=== PATIENT | female | born 1935 | race Caucasian/White ===

== ENCOUNTER 2017-05-20 07:57 | Inpatient (IN) | payer MEDICARE ==
[~2017-05-20 07:57] MED LIST: ISOVUE-370 76%-LOCM 1 ML ONE
[2017-05-20] MEDS ORDERED: Pantoprazole 40 MG VIAL ONE (08:35)
[2017-05-20] MEDS ORDERED: Sterile Water 10 ML ONE (08:36)
[2017-05-20 08:49] LABS: #Eosinphils 0.2 thou/uL (0.0-0.7); #Lymphocytes 0.7 thou/uL (1.20-3.40); #Monocytes 1.4 thou/uL (0.11-0.59); #Neutrophils 7.7 thou/uL (1.40-6.50); %Basophils 0.1 % (0.0-1.0); %Eosinophils 2.4 % (0.0-10.0); %Lymphocytes 7.2 % (21.0-51.0); %Monocytes 14.1 % (0.0-10.0); Hematocrit 29.3 % (36.0-47.0); Mean Platelet Volume 7.9 fL (7.4-10.4); Red Blood Cell (RBC) Count 3.28 mill/uL (4.20-5.40)
[2017-05-20 08:57] LABS: PTT 28.7 SEC (22.9-36.1); Prothrombin Time 14.1 SEC (12.0-14.7)
[2017-05-20 08:57] LABS: Bilirubin Small (Negative); Blood, Urine Negative (Negative); Glucose, Urine (Dipstick) Negative (Negative); Ketone, Urine Negative (Negative); Nitrite Negative (Negative); Protein, Urine (Dipstick) 30 mg/dL (Neg-Trace); Urobilinogen 0.2 mg/dL (0.2-1.0)
[2017-05-20 09:00] LABS: Bacteria/HPF 4+ HPF (None Seen); Hyaline Casts/LPF 7-10 HYALINE CAST LPF (0-3 Hyaline); RBC/HPF 0-3 HPF (0-3); Squamous Epithelial 0-3 HPF (0-3)
[2017-05-20 09:05] LABS: ALT (SGPT) 122 U/L (8-55); AST (SGOT) 91 U/L (5-34); Alkaline Phosphatase 181 U/L (40-150); Anion Gap 13 mmol/L (10-20); BUN (Urea Nitrogen) 32 mg/dL (9.8-20.1); Bilirubin, Total 0.8 mg/dL (0.2-1.2); CK (CPK) 52 U/L (29-168); Calc. Creatinine Clearance 0 mL/min (70-130); Calcium 8.9 mg/dL (7.8-10.44); Carbon Dioxide 29 mmol/L (23-31); Chloride 94 mmol/L (98-107); Estimated GFR-MDRD 30; Globulin 3.5 g/dL (2.4-3.5); Lipase 12 U/L (8-78); Protein, Total 6.5 g/dL (6.0-8.3)
[2017-05-20 09:23] LABS: Oval Fat Bodies/HPF None Seen HPF (None Seen); Renal Epithelial None Seen HPF (0-3); Transitional Epithelial NONE SEEN HPF (0-3); Trichomonas/HPF None Seen HPF (None Seen)
[2017-05-20 10:09] LABS: Lactic Acid - Sepsis 0.9 mmol/L (0.5-2.2)
--- NOTE | 2017-05-20 10:48 | RAD ---
PORTABLE AP CHEST X-RAY: 05/20/2017 HISTORY: Weakness. Blood in stool. COMPARISON: 05/03/2017 FINDINGS: The cardiac silhouette remains enlarged. The aortic valve graft is again seen. Calcifications over ly the expected location of the aortic valve. There are increased interstitial and parenchymal opac ities in the right perihilar location. While some of this could be related to volume loss due to sh allow depth of inspiration, findings are worrisome for a developing infectious process. There is li near scarring versus atelectasis in the left mid lung zone. Vascular calcifications are seen throug hout the thoracic aorta. There is osteopenia. IMPRESSION: 1. Interval development of increased patchy and interstitial opacities in the right perihilar regio n. While some of this could be related to the shallow depth of inspiration, findings are worrisome for pneumonia. Followup to resolution is recommended. 2. Cardiomegaly without overt congestive heart failure. POS: [facility]
--- NOTE | 2017-05-20 11:04 | CT ---
CONTRAST ENHANCED CT IMAGES OF THE ABDOMEN AND PELVIS: HISTORY: An 82-year-old with generalized weakness and blood in stools. TECHNIQUE: Axial images are obtained from the dome of the diaphragm through the pubic symphysis, after the admi nistration of IV contrast. A small right-sided pleural effusion is seen. Areas of atelectasis are seen in the right and left l clint bases. There are areas of calcification over the left mitral annulus. There is a prosthesis in the root of the aorta. The liver and spleen are unremarkable. Multiple gallstones are seen. The common bile duct has a di ameter of approximately 8 mm, without evidence of intrahepatic biliary dilatation. The adrenal glan ds are unremarkable. Multiple bilateral cortical renal cysts are seen. No dilated loops of small bowel seen. The colon is extremely tortuous with a large amount of stool in the cecum and ascending colon with d ilatation of the proximal mid colon. There is an area of sclerosis in the right sacral ala, concerning for a right sacral insufficiency f racture. IMPRESSION: 1. Large amount of stool in the proximal colon. 2. No definite evidence of bowel obstruction seen. 3. Multiple lumbar compression fractures, indeterminate age. 4. Right sacral ala fracture, as well as old healing fractures in the right superior and inferior p ubic rami. 5. Cholelithiasis. POS: [facility]
[2017-05-20 12:44] LABS: Troponin I 0.081 ng/mL (< 0.028)
[2017-05-20] MEDS ORDERED: cefTRIAXone\\ROCEPHIN 1 GM VIAL ONE (13:44)
[2017-05-20] MEDS ORDERED: Ondansetron ODT 4 MG TAB PO PRN (15:45)
[2017-05-20] MEDS ORDERED: Ondansetron HCl/PF 4 MG/2 ML Vial IVP PRN (15:45)
[2017-05-20] MEDS ORDERED: Acetaminophen 650 MG Suppository PR PRN (15:45)
[2017-05-20] MEDS ORDERED: Bisacodyl 5 MG TAB PO PRN (15:57)
[2017-05-20] MEDS ORDERED: Bisacodyl 10 MG SUPP PR PRN (15:57)
[2017-05-20 16:08] LABS: Troponin I 0.082 ng/mL (< 0.028)
[2017-05-20] MEDS ORDERED: Magnesium Citrate 300 ML BOT PO SCH (16:30)
[2017-05-20] MEDS ORDERED: Furosemide 40 MG/4 ML VIAL SLOW IVP SCH (16:30)
[2017-05-20] MEDS: Acetaminophen 325 MG TAB PO PRN ×2 (16:33→21:45)
[2017-05-20 18:41] LABS: Troponin I 0.083 ng/mL (< 0.028)
[2017-05-20] MEDS: Atorvastatin Calcium 40 MG TAB PO SCH (21:44)
[2017-05-20] MEDS: Docusate 100 MG CAP PO SCH (21:44)
[2017-05-20 23:46] LABS: Troponin I 0.084 ng/mL (< 0.028)
[2017-05-21 06:02] LABS: ALT (SGPT) 129 U/L (8-55); AST (SGOT) 116 U/L (5-34); Alkaline Phosphatase 167 U/L (40-150); Anion Gap 14 mmol/L (10-20); BUN (Urea Nitrogen) 37 mg/dL (9.8-20.1); Bilirubin, Total 0.5 mg/dL (0.2-1.2); Calc. Creatinine Clearance 27 mL/min (70-130); Calcium 8.8 mg/dL (7.8-10.44); Carbon Dioxide 28 mmol/L (23-31); Chloride 94 mmol/L (98-107); Estimated GFR-MDRD 27; Globulin 3.2 g/dL (2.4-3.5)
[2017-05-21] MEDS: Levothyroxine Sodium 75 MCG TAB PO SCH (06:03)
[2017-05-21] MEDS: Acetaminophen 325 MG TAB PO PRN ×2 (06:09→19:16)
[2017-05-21 06:33] LABS: Acanthocytes SLIGHT = 1-5 cells (100X) (None Seen); Anisocytosis SLIGHT = 6-15 cells (100X) (0-5/hpf); Burr Cells SLIGHT = 2-5 cells (100X) (0-1/hpf); Hematocrit 27.1 % (36.0-47.0); Mean Platelet Volume 8.1 fL (7.4-10.4); Myelocyte 1 % (0-0); Neutrophil 79 % (42-75); Red Blood Cell (RBC) Count 3.03 mill/uL (4.20-5.40); Schistocytes SLIGHT = 2-5 cells (100X) (0-1/hpf); White Blood Cell (WBC) Count 8.8 thou/uL (4.8-10.8)
--- NOTE | 2017-05-21 07:02 | ADD-HP ---
ADDENDUM HISTORY OF PRESENT ILLNESS: Please see the history and physical from the resident that I concur. T he patient was seen and evaluated and examined with the residents. Basically, this is an extremely complicated 82-year-old female, who was just admitted in March for a fall with a pelvic fracture an d past medical history including CHF, chronic kidney disease, chronic anemia, GERD, coronary artery disease including PTCA in the past, hypothyroidism, atrial fibrillation, aortic stenosis including v alve replacement and history of hypertension, who comes in just not quite herself recently, more corey sea, more abdominal distention, pretty significant constipation, although no actual vomiting and is being admitted for observation and to get her bowels moving. It sounds like she was on tramadol unt il the last fracture and that is why he remained more constipated and hemoglobin down to 9.1, it disla s not too far from baseline; creatinine is up to 1.6, but she often bumps at that level before; werner line phosphatase is little bit high and AST slightly elevated, but it looks like a little bit of hea rt failure, troponin is slightly high as her BNP as well. Sodium slightly low at 132, so the rest o f the past medical history, past surgical history, medications, review of systems and social history per the resident's history and physical. PHYSICAL EXAMINATION: GENERAL: Alert and oriented x2, pleasant, no respiratory distress, obvious distended abdomen. ENT: Significant for slightly pale conjunctivae. Oropharynx is clear and moist. CHEST: Some crackles at the bases. CARDIOVASCULAR: Irregularly irregular. ABDOMEN: Protuberant, but nontender. No rebound or guarding. EXTREMITIES: Showed trace to 1+ pitting edema numerous sores on very fragile looking skin on her lo wer extremities. LABORATORY DATA: Per the history and physical. ASSESSMENT AND PLAN: 1. Abdominal discomfort and bloating from severe constipation. Plan is to continue disimpaction, s tool softeners and laxatives. 2. History of recent pelvic fracture. We will continue pain management as needed. 3. Chronic renal insufficiency. We will watch this closely and will not overload her volume coppola. 4. Cardiac issues. We will watch her for volume overload. She does look a little bit overloaded c urrently.
--- NOTE | 2017-05-21 07:40 | PDOC.FM ---
- Subjective Subjective: Pt reports still having pain. Says she had a BM overnight. Feels a little better but distended. Pt seems to be having shallow breaths. Seems to take some effort to ask questions. Denies any other problems at this time. Denies any fever or chills - Objective Vital Signs & Weight: Vital Signs (12 hours) Temp Pulse Resp BP Pulse Ox 05/21/17 04:43 98.1 F 71 20 93/50 L 96 05/21/17 04:00 75 24 H 118/59 L 96 05/21/17 01:00 68 20 98 05/21/17 00:18 93 L 05/21/17 00:15 24 H 88 L 05/21/17 00:01 96 05/20/17 23:56 97.8 F 71 20 104/51 L 100 05/20/17 21:31 97.8 F 73 24 H 104/57 L 93 L 05/20/17 19:47 71 20 97 Weight Weight 69.218 kg I&O: 05/20/17 05/21/17 05/22/17 06:59 06:59 06:59 Intake Total 1097 Balance 1097 Result Diagrams: 05/21/17 04:54 05/21/17 04:54 Radiology Reviewed by me: Yes Radiology: CXR 05/20: interval development of increased patchy and interstitial opacities in the right perihilar region. Could be related to shallow depth breaths, concern for pneumonia. Cardiomegaly w/o overt congestive heart failure CT ab/pelvis 05/20: large amount stool in prox colon. No evidence obstruction. Cholelithiasis. Multiple lumbar compression fx, R sacral fx. Old healing fx in r superior and inferior pubic rami. Phys Exam - Physical Examination HEENT: moist MMs, oral pharynx no lesions Dry mucous membranes Neck: no nodes, no JVD, supple Lungs rales noted. Shallow breaths noted Cardiovascular: RRR, no rub systolic murmur noted Tight, Non-tender, Very much distended Edema improve +1 pitting edema Neurological: non-focal Psychiatric: normal affect, A&O x 3 Skin: no rash Dx/Plan (1) Constipation Code(s): K59.00 - CONSTIPATION, UNSPECIFIED Status: Acute Qualifiers: Constipation type: unspecified constipation type Qualified Code(s): K59.00 - Constipation, unspecified (2) Fecal impaction Code(s): K56.41 - FECAL IMPACTION Status: Acute (3) CHF exacerbation Code(s): I50.9 - HEART FAILURE, UNSPECIFIED Status: Acute (4) Diastolic CHF due to valvular disease Code(s): I38 - ENDOCARDITIS, VALVE UNSPECIFIED; I50.30 - UNSPECIFIED DIASTOLIC ( CONGESTIVE) HEART FAILURE Status: Chronic (5) Elevated transaminase level Code(s): R74.0 - NONSPEC ELEV OF LEVELS OF TRANSAMNS & LACTIC ACID DEHYDRGNSE Status: Acute (6) Paroxysmal a-fib Code(s): I48.0 - PAROXYSMAL ATRIAL FIBRILLATION Status: Acute (7) Ktrhd-im-fnsmdwl kidney injury Code(s): N17.9 - ACUTE KIDNEY FAILURE, UNSPECIFIED; N18.9 - CHRONIC KIDNEY DISEASE, UNSPECIFIED Status: Acute (8) Anemia Code(s): D64.9 - ANEMIA, UNSPECIFIED Status: Chronic Qualifiers: Anemia type: iron deficiency (9) Sacral fracture Code(s): S32.10XA - UNSP FRACTURE OF SACRUM, INIT ENCNTR FOR CLOSED FRACTURE Status: Acute (10) Compression fracture Code(s): UHO1483 - Status: Acute (11) Physical deconditioning Code(s): R53.81 - OTHER MALAISE Status: Acute - Plan Plan: Severe Constipation due to fecal impaction -Mag citrate, colace, dulcolax. Will make sure meds are scheduled -Continue soap enemas -May consider KUB to assess amount of stool still remains CHF excacerbation w/ hx valve replacement -Continue IV lasix -Repeat CXR pending today Elevated Transaminases -RUQ U/S pending -CT abdo/pelvis showed cholelithiasis -Trended upward today. -Continue daily monitory with CMP -Possibly due to congestion. May consider hepatitis panel pA. Fib -continue home meds. -On tele monitoring ORLY on CKD3 -Cr trending up. Holding fluids now due to problems above -Will continue to monitor daily CMP Chronic Microcytic Anemia -Hgb around pt baseline. Will continue to trend -FOBT negative -iron studies done in the past and low. -Was on iron but is being held due to constipation. HTN -BP low. Will continue to monitor at this time Rib pain/Sacral fx -Recent incident this monika where she had a fall and injured her ribs and sacral fx noted on CT -Tylenol for pain -Have to avoid narcotics due to constipation and toradol due to Cr Compression Fx -Seen on CT -May want to consider tx for osteoporosis out patient. DVT ppx -SCD's -No lovenox as risk of falls.
--- NOTE | 2017-05-21 07:51 | HP-2 ---
DATE OF ADMISSION: 05/20/2017 CODE STATUS: FULL. PRIMARY CARE PHYSICIAN: [facility]. ATTENDING: Dr. Deric Childers M.D. RESIDENT: Binh Moss, PGY-1 HISTORIAN: Mainly from the son. CHIEF COMPLAINT: Severe constipation and weakness. HISTORY OF PRESENT ILLNESS: Patient did not answer many questions. HPI was obtained from the son cali n the room. This is an 82-year-old female who comes in with a chief complaint of weakness and const ipation, this all kind of started on Monday when she had a fall with her home health. She had a gai t belt on, and when she fell, they pulled on the gait belt and kind of injured and bruised limbs at this time. At the week reported her getting weaker, not been able to get around as much or moving roselyn beverly said just the other night, he checked her oxygen. She wears oxygen at home all the time. Checked the oxygen and it was 84%. She usually wears 2 liters oxygen. He bumped up to 3 L and rechecked t he oxygen at that time was 90%. He also reported having a sore on her sacrum and noticing some brig ht red blood in the diaper, which likely was from sore on the sacrum. She does state that lately jessie beverly has been on a gluten-free diet. She has had some stomach issues and abdominal pain. He also stat es that he recently took her to the clinic [facility] on Monday. At that time, mainly for her rib pain was only her main complaint. At that time, they doubled her dose of tramadol. In the ER, they checked her hemoglobin. He said that blood level was higher than it has been in the p ast. She has recently been through a lot with multiple hospitalizations and then recently in rehab in the last few months. PAST MEDICAL HISTORY: CHF, paroxysmal atrial fibrillation, carotid , hyperlipidemia, hypertens ion, right coronary artery stent, has a TAVR, and has had an aortic valve replacement. ALLERGIES: No known drug allergies. MEDICATIONS: 1. She takes levothyroxine 75 mcg but only takes half of that, so 37.5 mcg.. 2. Lipitor 80 mg. 3. Aspirin 81 mg. 4. Amiodarone 200 mg. 5. Plavix 75 mg. 6. vitamin. 7. Tramadol 50 mg 2 times p.r.n. q.6 h. 8. Prednisone 5 mg. 9. Ferrous sulfate. 10. Furosemide 20 mg. 11. Milk of Magnesia. 12. Folic acid. 13. Protonix 40 mg. 14. Zofran 4 mg. FAMILY HISTORY: Insignificant at this time. SOCIAL HISTORY: Tobacco use is none. Alcohol use is none. Drugs are none. REVIEW OF SYSTEMS: Respiratory: She has respiratory short of breath. Cardiovascular: She does sanders ve edema in her legs bilaterally. Gastrointestinal: She does report nausea, constipation, abdomina l pain, bleeding, but likely from the sacral ulcer. Neurologic: She reports weakness. All other review of systems not noted in the HPI and review of systems are negative at this time. PHYSICAL EXAMINATION: VITAL SIGNS: Blood pressure is 107/66, pulse is 77, respirations of 14, and temperature was 97.6, p ulse ox is 96% on 3 liters. GENERAL: Alert and oriented x3. She is somewhat thin, does not seem appropriately nourished, not a ppropriately interactive, as son answer questions. She does seem pretty ill and does not seem to be in much strength to answer questions. EYES: Conjunctivae are within normal limits. ENT: Nasal mucosa within normal limits. Oropharynx within normal limits. NECK: Supple, no lymphadenopathy, no thyromegaly, no bruits. CARDIOVASCULAR: Regular rate and rhythm, possible slight murmur heard. No gallops. Radial and ped al pulses palpated bilaterally. RESPIRATORY: She has decreased breathing effort. Lungs are kind of crackly, rales noted. No retra ctions noted. ABDOMEN: Firm, mildly tender to palpation. There is bowel sounds heard in all 4 quadrants, but her belly is very distended and very bloated at this time. No masses noted. EXTREMITIES: She does have pitting edema in both extremities +2 pitting edema in extremities bilate rally. MUSCULOSKELETAL: Structure within normal, tone within normal. She does have decreased muscle stren gth. Does not seem to have full range of motion. NEUROLOGIC: No focal deficits. Sensation is within normal limits. PSYCHIATRIC: She is a very quiet, elderly female. Son answers most of the questions. LABORATORY DATA: White blood cell count of 10.0, hemoglobin of 9.1, hematocrit of 29.3, platelets o f 243,000, 76.2% neutrophils. The sodium is 132, the potassium is 4.2, chloride 94, the CO2 is 29, the BUN is 32, potassium 1.65. GFR is 30, calcium is 8.9, total protein 6.5. The albumin 3.0, the AST is 91, the ALT is 122, the alkaline phosphatase is 181, total bilirubin 0.8. PT is 14.1, aPTT 2 8, INR is 1.1. CK is 52. The CK-MB is 2.4. The troponins were 0.07 and the next troponin check wa s 0.081. The BNP was 697. 1. On chest x-ray showed interval development of increased patchy and interstitial opacities in the right perihilar region, worrisome for pneumonia and also noted that it could also be due to just sh allow breathing effort. 2. On chest x-ray, it showed cardiomegaly without overt CHF. IMAGING: A CT abdomen and pelvis: There is a large amount of stool in the proximal colon. No definitive raine dence of bowel obstruction seen. There are multiple lumbar compression fractures. There is a right sacral fracture as well as healing fractures in the right superior and inferior pubic rami. there also was cholelithiasis noted. ASSESSMENT AND PLAN: This is an 82-year-old female with: 1. Severe constipation with fecal impaction. We will give her mag citrate, soap enema, and Colace and Dulcolax for now. She was already disimpacted by the nurse practitioner in the ER, may need ton e more disimpaction tomorrow. 2. Mild congestive heart failure exacerbation. We will continue her home meds. We will give one do se of Lasix. We will repeat chest x-ray tomorrow. We will put her on fluid restrictions. 3. Elevated transaminases. There is cholelithiasis on the CT. We will trend with CMP in the a.m. We will get a right upper quadrant ultrasound. 4. There were uptrending troponins. Troponins are elevated. They are kind of around her baseline, but we will continue to trend. 5. Acute kidney injury on chronic kidney disease. Creatinine is a little elevated from previous ho spitalizations or elevated from baseline. We will continue to monitor with CMP. We will not be abl e to give her fluids at this time as she was fluid restrictions per problems above. 6. Chronic anemia. Her hemoglobin is 9.1 better than usual. We will hold her iron due to constipa tion. Continue to monitor with daily CBCs. 7. Rib pain/sacral fracture. We will give her only Tylenol at this time. We will avoid opiates, T oradol. Toradol due to creatinine and opiates due to constipation. 8. There is a small sacral ulcer. We will kind of watch it. Allow nursing to manage. May possibl y need a Wound Care consult. 9. Deep venous thrombosis prophylaxis. We will put devices. 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
[2017-05-21 08:33] LABS: Troponin I 0.089 ng/mL (< 0.028)
[2017-05-21] MEDS ORDERED: Furosemide 40 MG/4 ML VIAL SLOW IVP SCH (09:00)
[2017-05-21] MEDS: Lactinex Tablet PO SCH (09:51)
[2017-05-21] MEDS: Docusate 100 MG CAP PO SCH ×2 (09:52→22:01)
[2017-05-21] MEDS: Folic Acid 1 MG TAB PO SCH (09:52)
[2017-05-21] MEDS: predniSONE 5 MG TAB PO SCH (09:52)
[2017-05-21] MEDS: Clopidogrel Bisulfate 75 MG TAB PO SCH (09:52)
[2017-05-21] MEDS: Furosemide 20 MG/2 ML VIAL SLOW IVP SCH (09:53)
[2017-05-21] MEDS ORDERED: Bisacodyl 10 MG SUPP PR SCH (10:00)
--- NOTE | 2017-05-21 11:46 | ULT ---
RIGHT UPPER QUADRANT ULTRASOUND: DATE: 05/21/17. HISTORY: Abdominal pain, cholelithiasis. FINDINGS: Multiple longitudinal and transverse images of the right upper quadrant of the abdomen were obtained using a multihertz curvilinear transducer. Real-time, color flow, and spectral waveform Doppler an alysis was used to evaluate the right upper quadrant. The patient has a right-sided pleural effusion. The liver demonstrates no definite evidence of hepa tic parenchymal masses. No evidence of intrahepatic biliary dilatation is seen. Multiple echogenic foci are seen within the gallbladder compatible with extensive cholelithiasis. T he gallbladder wall may have some thickening. It is difficult to determinate definitively due to th e extensive cholelithiasis. Gallbladder wall may measure up to 5 mm. Cortical cyst seen in the right kidney. Common bile duct is dilated measuring 9.5 mm. Pancreas is incompletely visualized due to overlying bowel gas. IMPRESSION: 1. Cholelithiasis. 2. Gallbladder wall may be thickened. 3. Common bile duct dilatation. POS: [facility]
--- NOTE | 2017-05-21 12:45 | RAD ---
TWO VIEWS CHEST: HISTORY: Pneumonia. FINDINGS: PA and lateral views of the chest were obtained on 05/21/17. Comparison is made to a previous exam f rom 05/20/17. Two views chest demonstrate an endocardiac stent. There is definitely cardiomegaly. Calcification of the aorta is seen. Ectasia of the aorta is noted. Pulmonary vascular congestion is seen. There appears to be some increased pulmonary vascular congestion with some increasing opacity in the left upper lobe not seen on previous day's exam. There is also some increasing airspace opacity in the right upper lobe. IMPRESSION: Increasing airspace opacities. POS: [facility]
[2017-05-21 12:48] LABS: Troponin I 0.086 ng/mL (< 0.028)
--- NOTE | 2017-05-21 17:58 | ADD-PRG ---
ADDENDUM DATE OF SERVICE: 05/21/2017 Please see the progress note by Dr. Moss for which I concur. Basically, an 82-year-old who came i n for various complaints including being volume overloaded; rib pain after a rib injury from being p ulled up after a fall using a physical therapy waist belt, although no actual rib fractures; liver f unction tests were slightly elevated, likely may be from little bit of volume overload. Has chronic anemia that is really unchanged. Kidney function is a little bit decreased, although things seemed to be chronic and biggest issue on her is trying to get her bowel movements because that is definit anil affecting her. PHYSICAL EXAMINATION: HEENT: Today, fairly moist mucosa. LUNGS: Chest has some crackles at the bases. Hard to say if this is atelectasis or fluid, probably seems a little bit more like fluid. CARDIOVASCULAR: Regular rate and rhythm. ABDOMEN: Distended, but seems to be more gaseous and nontender. No rebound, no guarding, no right upper quadrant tenderness. EXTREMITIES: Show still 1+ edema. ASSESSMENT AND PLAN: The patient basically has a touch of volume overload and chronic renal disease as well as slightly elevated liver function tests and aches and pains which pain medication seemed to be causing more constipation which seems then make her more miserable and even affects her breath ing somewhat as I think she has a little bit of restrictive lung issue with her abdominal distention , so the plan is to try to get her out of bed, physical therapy, incentive spirometer, get her breat andreea better, continue very light diuresis as I do not want to stress out her kidneys too much and ul trasound is pending, but I do not think there is any reason to think that the cholelithiasis is that symptomatic, though we are trying to stabilize all this and I want to consider Movantik, Amitiza, o r similar medicines can help with chronic bowel movement issues. If we do Movantik, we are able to probably use more opiates to control her pain a little bit better as well.
[2017-05-21] MEDS ORDERED: Polyethylene Glycol 3350 17 GM Packet PO SCH ×2 (18:45→19:00)
[2017-05-21] MEDS ORDERED: Sodium Chloride 0.9% 10 ML ONE (20:27)
[2017-05-21] MEDS ORDERED: Fleet Enema 133 ML BOT FS SCH (20:45)
[2017-05-21] MEDS ORDERED: Fleet Enema 133 ML BOT PR SCH (20:45)
[2017-05-21] MEDS: Atorvastatin Calcium 40 MG TAB PO SCH (22:01)
[2017-05-21] MEDS ORDERED: traMADol HCl 50 MG TAB PO SCH (22:30)
[2017-05-22] MEDS: Bisacodyl 10 MG SUPP PR SCH ×3 (04:36→18:26)
[2017-05-22] MEDS: traMADol HCl 50 MG TAB PO PRN ×3 (04:52→20:38)
[2017-05-22] MEDS: Levothyroxine Sodium 75 MCG TAB PO SCH (04:53)
[2017-05-22 05:48] LABS: ALT (SGPT) 119 U/L (8-55); AST (SGOT) 100 U/L (5-34); Alkaline Phosphatase 166 U/L (40-150); Anion Gap 13 mmol/L (10-20); BUN (Urea Nitrogen) 45 mg/dL (9.8-20.1); Bilirubin, Total 0.5 mg/dL (0.2-1.2); Calc. Creatinine Clearance 28 mL/min (70-130); Calcium 8.6 mg/dL (7.8-10.44); Carbon Dioxide 31 mmol/L (23-31); Chloride 93 mmol/L (98-107); Estimated GFR-MDRD 29; Globulin 3.3 g/dL (2.4-3.5)
[2017-05-22 05:50] LABS: Hematocrit 26.7 % (36.0-47.0); Mean Platelet Volume 8.2 fL (7.4-10.4); Neutrophil 85 % (42-75); White Blood Cell (WBC) Count 9.8 thou/uL (4.8-10.8)
[2017-05-22] MEDS ORDERED: GoLYTELY 4,000 ml Bottle PO SCH (06:00)
--- NOTE | 2017-05-22 06:50 | PDOC.FM ---
- Subjective Subjective: Patient states she is still having quite a bit of pain from the gait belt incident. She states that she hurts all the time unless she sits very still. She denies any n/v/d. She notes just a small BM after an enema, but is able to pass gas. She states that he abdomen isn't as big as it is now usually. It began to get bigger just a few days prior to coming to the hospital that coordinates with her constipation problems. Patient states she feels very weak that is not normal for her. - Objective Vital Signs & Weight: Vital Signs (12 hours) Temp Pulse Resp BP Pulse Ox 05/22/17 04:33 97.8 F 79 16 114/59 L 94 L 05/22/17 00:30 75 18 98 05/21/17 22:59 79 20 136/67 93 L 05/21/17 21:40 97.9 F 76 20 135/63 94 L Weight Weight 67.812 kg I&O: 05/20/17 05/21/17 05/22/17 06:59 06:59 06:59 Intake Total 1097 1290 Balance 1097 1290 Result Diagrams: 05/22/17 04:19 05/22/17 04:19 <Christian Ortiz - Last Filed: 05/22/17 11:16> - Objective Vital Signs & Weight: Vital Signs (12 hours) Temp Pulse Resp BP Pulse Ox 05/22/17 11:25 80 22 H 142/72 H 96 05/22/17 09:52 97.8 F 05/22/17 06:48 72 20 98 05/22/17 06:42 84 20 169/77 H 97 05/22/17 04:33 97.8 F 79 16 114/59 L 94 L 05/22/17 00:30 75 18 98 Weight Admit Weight 67.222 kg Weight 67.812 kg I&O: 05/21/17 05/22/17 05/23/17 06:59 06:59 06:59 Intake Total 1097 1290 Balance 1097 1290 Result Diagrams: 05/22/17 04:19 05/22/17 04:19 <Vitor Molina - Last Filed: 05/22/17 12:13> Phys Exam - Physical Examination HEENT: moist MMs Neck: no nodes Respiratory: wheezing present Cardiovascular: RRR Systolic murmur noted Gastrointestinal: soft, non-tender, positive bowel sounds distended Rectal exam: no hard stool in vault, flatulence and loose stool present. Pitting edema present Neurological: moves all 4 limbs Psychiatric: normal affect, A&O x 3 <Christian Ortiz - Last Filed: 05/22/17 11:16> Dx/Plan (1) Constipation Code(s): K59.00 - CONSTIPATION, UNSPECIFIED Status: Acute Qualifiers: Constipation type: unspecified constipation type Qualified Code(s): K59.00 - Constipation, unspecified Plan: -Mag citrate, colace, dulcolax. Will make sure meds are scheduled -Continue soap enemas -Patient did have 2 small BMs after enemas -May consider KUB to assess amount of stool still remains -Concentrate bowel regimen and wait to see results. (2) Fecal impaction Code(s): K56.41 - FECAL IMPACTION Status: Acute Plan: -Mag citrate, colace, dulcolax. Will make sure meds are scheduled -Continue soap enemas -Patient did have 2 small BMs after enemas -May consider KUB to assess amount of stool still remains -Continue current treatment (3) CHF exacerbation Code(s): I50.9 - HEART FAILURE, UNSPECIFIED Status: Acute Plan: -Pitting edema still present -CXR shows increasing airspace opacities as compared to the previous. Pulmonary vascular congestion is noted. -With poor inspiration and increasing opacities will monitor closely for signs of infection. No fevers or WBC at this time. -Continue IV lasix (4) Diastolic CHF due to valvular disease Code(s): I38 - ENDOCARDITIS, VALVE UNSPECIFIED; I50.30 - UNSPECIFIED DIASTOLIC ( CONGESTIVE) HEART FAILURE Status: Chronic Plan: -Previous valve replacement -Continue IV lasix (5) Elevated transaminase level Code(s): R74.0 - NONSPEC ELEV OF LEVELS OF TRANSAMNS & LACTIC ACID DEHYDRGNSE Status: Acute Plan: -RUQ US: Cholithiasis, gallbladder wall may be thickened, common bile duct dilation. -CT abdo/pelvis showed cholelithiasis -Continue daily monitory with CMP -Possibly due to congestion. (6) Paroxysmal a-fib Code(s): I48.0 - PAROXYSMAL ATRIAL FIBRILLATION Status: Acute Plan: -continue home meds. -On tele monitoring (7) Qczws-td-ilrfbzt kidney injury Code(s): N17.9 - ACUTE KIDNEY FAILURE, UNSPECIFIED; N18.9 - CHRONIC KIDNEY DISEASE, UNSPECIFIED Status: Acute Plan: -Cr trending up. Holding fluids now due to problems above -Will continue to monitor daily CMP (8) Anemia Code(s): D64.9 - ANEMIA, UNSPECIFIED Status: Chronic Qualifiers: Anemia type: iron deficiency Plan: -Hgb around pt baseline. Will continue to trend -FOBT negative -iron studies done in the past and low. -Was on iron but is being held due to constipation. (9) Compression fracture Code(s): IOH1199 - Status: Acute Plan: -Seen on CT -May want to consider tx for osteoporosis out patient. (10) Sacral fracture Code(s): S32.10XA - UNSP FRACTURE OF SACRUM, INIT ENCNTR FOR CLOSED FRACTURE Status: Acute Plan: -Recent incident this monday where she had a fall and injured her ribs and sacral fx noted on CT -Tylenol for pain -Have to avoid narcotics due to constipation and toradol due to Cr -Could be due to nerve pain, will consider Gabapentin. (11) Physical deconditioning Code(s): R53.81 - OTHER MALAISE Status: Acute Plan: Patient may need to be considered for placement to [facility]. <Christian Ortiz - Last Filed: 05/22/17 11:16> Attending Addendum - Attending Addendum I personally evaluated the patient and discussed the management with Dr. Ortiz. I agree with the History, Examination, Assessment and Plan documented above with any addition or exceptions noted below. Patient has a multitude of active issues at this time. She continues to have severe constipation that is resulting in abdominal pain and discomfort. She has + bowel sounds, and is passing flatus. Repeat rectal exam this morning showed liquid stool in the rectal vault. We have discontinued the Golytely solution that was started last night due to concern for volume overload in an already volume overloaded patient. Will stick to small volumes of PEG and soapsud enemas for now and anticipate that she will begin having more normal bowel movements hopefully later today. Unsure etiology as to the cause of her initial constipation, but could be related to opioid therapy, diuresis, or some new issue such as Oglevie's syndome, though at this time I feel is more unlikely. If no improvement today, will have GI evaluate patient tomorrow. We are changing her diet to a liquid only diet so as not to worsen her distention/ stool burden. Patient also continues to be CHF with exacerbation. She is receiving IV lasix with mild improvement, but must be cautious due to coexisting renal disease. Her renal function is overall stable today and I would continue to diurese as she has evidence of overload on exam. She is currently on supplemental O2 with decent sats, and patient reports she is on 2-3L by NC at home, so she is likely near her respiratory baseline. I do not believe that her current pain complaint is related to cholelithiasis even though there is evidence of that on U/S. Her pain seems more related to MSK pain as well as from her abdominal distention. Continue to monitor LFTs for evidence of choledocholithiasis as she is at risk for gallbladder dysfunction due to her current illnesses. <Vitor Molina - Last Filed: 05/22/17 12:13>
[2017-05-22] MEDS ORDERED: Polyethylene Glycol 3350 17 GM Packet PO SCH ×2 (09:00→11:30)
[2017-05-22] MEDS: Furosemide 20 MG/2 ML VIAL SLOW IVP SCH (09:51)
[2017-05-22] MEDS: Docusate 100 MG CAP PO SCH ×2 (09:52→20:38)
[2017-05-22] MEDS: Lactinex Tablet PO SCH (09:52)
[2017-05-22] MEDS: predniSONE 5 MG TAB PO SCH (09:52)
[2017-05-22] MEDS: Folic Acid 1 MG TAB PO SCH (09:52)
[2017-05-22] MEDS: Clopidogrel Bisulfate 75 MG TAB PO SCH (09:52)
--- NOTE | 2017-05-22 13:53 | PQF ---
CLINICAL DOCUMENTATION IMPROVEMENT CLARIFICATION FORM: ICD-10 Updated PLEASE DO AN ADDENDUM TO THE PROGRESS NOTE WITH ANY DOCUMENTATION UPDATES OR ADDITIONS AND CARRY THROUGH TO DC SUMMARY. THANK YOU. DATE: 05/22 ATTN: DR. AYE MARR/ DR. MARILIN EMMANUEL Please provide a response below if a more specific term indicating a diagnosis and/or acuity level for this condition can be identified. Please exercise your independent, professional judgment in responding to the clarification form. Clinical indicators are provided on the bottom of this form for your review. [ ] Acute Respiratory Failure: [ ] with Hypoxia [ ] with Hypercapnia [ X ] Acute On Chronic Respiratory Failure: [ X ] with Hypoxia [ ] with Hypercapnia [ ] Acute Respiratory Failure caused by: (etiology) [ ] Chronic Respiratory Failure only [ ] Does not apply to this patient [ ] Unable to determine [ ] Other diagnosis: The following CLINICAL INDICATORS - SIGNS / SYMPTOMS are present in the medical record: ER PRESENTATION 05/20: 02 SAT ON 2L: 87%, PLACED ON 3L: 91-97% RR: 22 RESPIRATORY EFFORT LABORED NORMALLY WEARS 2L 02 AT HOME, NOW ONLY SATTING >92% ON 3L ATTENDING PHYSICIAN H&P DOCUMENTATION 05/20: HISTORY OF PRESENT ILLNESS: SHE WEARS OXYGEN AT HOME ALL THE TIME. HER SON CHECKED OXYGEN AND IT WAS 84%. HE BUMPED UP TO 3L AND RECHECK THE OXYGEN AT THAT TIME WAS 90% ATTENDING PROGRESS NOTE 05/22: SHE IS CURRENTLY ON SUPPLEMENTAL 02 WITH DECENT SATS, AND PT REPORTS SHE IS ON 2-3L NC AT HOME, SO SHE IS LIKELY NEAR HER RESPIRATORY BASELINE RISKS: HOME 02 USE DIASTOLIC CHF EXACERBATION TREATMENTS: SUPPLEMENTAL 0XYGEN TO KEEP SATS >90% DIURESIS (IV LASIX 05/20 - PRESENT) RESPIRATORY TREATMENTS (05/20 - PRESENT) (This form is maintained as a part of the permanent medical record) 2014 [employer]. All Rights Reserved Ya Veronica RN, BSAdelaida [email or web address] Office: [phone] [place]
[2017-05-22] MEDS: Atorvastatin Calcium 40 MG TAB PO SCH (20:37)
[2017-05-22] MEDS: Calcium Carbonate 500 MG ChewTAB PO PRN (20:38)
[2017-05-22] MEDS: Heparin 5,000 UNITS/ML VIAL SC SCH (20:39)
[2017-05-23] MEDS ORDERED: Furosemide 40 MG/4 ML VIAL SLOW IVP SCH ×2 (00:15→22:15)
[2017-05-23] MEDS ORDERED: Acetaminophen 325 MG TAB PO PRN (00:17)
[2017-05-23] MEDS ORDERED: traMADol HCl 50 MG TAB PO PRN (00:17)
[2017-05-23] MEDS ORDERED: Senokot 8.6 MG TAB PO SCH (00:30)
[2017-05-23] MEDS ORDERED: Furosemide 40 MG TAB ONE (00:41)
--- NOTE | 2017-05-23 00:45 | PDOC.EVN ---
Event Note - Event Note Event Note: called to bedside to evaluate pt as she was feeling increasingly SOB. satting 91 % on 3L whereas previously, pt was 96% on 3L. pt endorsed difficulty breathing and abdominal distention making it hard to breathe. has had multiple enemas and increasing bowel regimen to relieve fecal impaction to no avail as of yet. Lung exam revealed diffuse crackles in both lung curtis. Actively getting neb in room which pt states is helping a little. Abd mildly tender to palpation, diffusely distended & tympanic. Aside from hypoxia as noted above, VSS. Stat CXR ordered and 40mg IV lasix given now for likely fluid overload. Additionally, increased bowel regimen to have po stool softener, stimulant laxative added, and will try mineral oil enema as soap suds enemas have not yet been working. <Viktoria Beverly - Last Filed: 05/23/17 00:39> - Event Note Event Note: Patient reevaluated by myself at 0530 after page from nurse. Patient remains hypoxic at 87% on 4L per nc. Code green called. ABG shows pH 7.4, CO2 58, O2 51. Lung exam shows minimal movement of air with rhonchi throughout. Abdomen remains mildly tender and distended, but no guarding or rebound. CXR done earlier is unchanged, showing diffuse parenchymal change and no evidence of free air in the abdomen. No tachycardia. Given lack of response to treatment, will start Bipap and transfer to IMCU. Most likely atelectasis from obstipation is leading to hypoxia. Will monitor closely and consult GI and pulmonology in the for assistance, as she has not responded to standard measures. Critical Care time 40 minutes. <Abril Potter - Last Filed: 05/23/17 05:51>
[2017-05-23] MEDS ORDERED: Acetaminophen 500 MG TAB PO PRN (00:53)
[2017-05-23] MEDS: Calcium Carbonate 500 MG ChewTAB PO PRN (04:04)
[2017-05-23] MEDS: Mineral Oil ENEMA PR SCH ×4 (04:05→20:25)
[2017-05-23] MEDS: Bisacodyl 10 MG SUPP PR SCH ×3 (04:05→19:41)
[2017-05-23 05:37] LABS: Oxyhemoglobin 82.7 % (94.0-97.0); Sodium 135 mmol/L (135-148)
[2017-05-23 05:51] LABS: Vent NO
[2017-05-23 05:52] LABS: Mode NC
--- NOTE | 2017-05-23 07:40 | PDOC.FM ---
- Subjective Subjective: Patient had respiratory distress last night. She is now on the Bipap. She has still not had a bowel movement of any significant size. She is not complaining of any abdominal pain. She does feel short of breath and does have some pain in her chest when she coughs. - Objective Vital Signs & Weight: Vital Signs (12 hours) Temp Pulse Resp BP Pulse Ox 05/23/17 07:19 89 94 L 05/23/17 07:15 89 15 93 L 05/23/17 06:26 97.6 F 91 29 H 104/68 91 L 05/23/17 05:28 28 H 87 L 05/23/17 04:18 24 H 98 05/23/17 04:17 24 H 87 L 05/23/17 04:00 98.1 F 85 21 H 131/64 93 L 05/23/17 02:16 99 05/23/17 00:02 87 22 H 90 L 05/22/17 23:58 82 24 H 118/69 91 L 05/22/17 20:32 97.7 F 79 20 139/76 96 Weight Admit Weight 67.222 kg Weight 68.492 kg I&O: 05/22/17 05/23/17 05/24/17 06:59 06:59 06:59 Intake Total 1290 1976 Balance 1290 1976 Result Diagrams: 05/23/17 05:32 05/23/17 05:32 <Christian Ortiz - Last Filed: 05/23/17 11:22> - Objective Vital Signs & Weight: Vital Signs (12 hours) Temp Pulse Resp BP Pulse Ox 05/23/17 10:42 90 05/23/17 08:00 98.0 F 91 22 H 114/71 94 L 05/23/17 07:19 89 94 L 05/23/17 07:15 89 15 93 L 05/23/17 06:26 97.6 F 91 29 H 104/68 91 L 05/23/17 05:28 28 H 87 L 05/23/17 04:30 24 H 98 05/23/17 04:18 87 L 05/23/17 04:17 24 H 87 L 05/23/17 04:00 98.1 F 85 21 H 131/64 93 L 05/23/17 02:16 99 05/23/17 00:02 87 22 H 90 L 05/22/17 23:58 82 24 H 118/69 91 L Weight Admit Weight 67.222 kg Weight 68.492 kg I&O: 05/22/17 05/23/17 05/24/17 06:59 06:59 06:59 Intake Total 1290 1976 Balance 1290 1976 Result Diagrams: 05/23/17 05:32 05/23/17 05:32 <Vitor Molina - Last Filed: 05/23/17 11:28> Phys Exam - Physical Examination Neck: no nodes Respiratory: wheezing present Cardiovascular: RRR Systolic murmur present Gastrointestinal: soft, non-tender, positive bowel sounds Distended Musculoskeletal: edema present Neurological: non-focal Psychiatric: normal affect, A&O x 3 Skin: no rash <Christian Ortiz - Last Filed: 05/23/17 11:22> Dx/Plan (1) Constipation Code(s): K59.00 - CONSTIPATION, UNSPECIFIED Status: Acute Qualifiers: Constipation type: unspecified constipation type Qualified Code(s): K59.00 - Constipation, unspecified Plan: -Mag citrate, colace, dulcolax. Will make sure meds are scheduled -Continue soap enemas -Concentrate bowel regimen and wait to see results. -Will consult GI -Will get KUB (2) Fecal impaction Code(s): K56.41 - FECAL IMPACTION Status: Acute Plan: -Mag citrate, colace, dulcolax. Will make sure meds are scheduled -Continue soap enemas -GI consult (3) CHF exacerbation Code(s): I50.9 - HEART FAILURE, UNSPECIFIED Status: Acute Plan: -Pitting edema still present -CXR shows increasing airspace opacities as compared to the previous. Pulmonary vascular congestion is noted. -With poor inspiration and increasing opacities will monitor closely for signs of infection. No fevers or WBC at this time. -Continue IV lasix -On BIPAP now and will continue to monitor (4) Diastolic CHF due to valvular disease Code(s): I38 - ENDOCARDITIS, VALVE UNSPECIFIED; I50.30 - UNSPECIFIED DIASTOLIC ( CONGESTIVE) HEART FAILURE Status: Chronic Plan: -Previous valve replacement -Continue IV lasix -Will get a repeat ECHO (5) Elevated transaminase level Code(s): R74.0 - NONSPEC ELEV OF LEVELS OF TRANSAMNS & LACTIC ACID DEHYDRGNSE Status: Acute Plan: -RUQ US: Cholithiasis, gallbladder wall may be thickened, common bile duct dilation. -CT abdo/pelvis showed cholelithiasis -Continue daily monitory with CMP -Possibly due to congestion. (6) Paroxysmal a-fib Code(s): I48.0 - PAROXYSMAL ATRIAL FIBRILLATION Status: Acute Plan: -continue home meds. -On tele monitoring (7) Rrqhj-xb-omtzowt kidney injury Code(s): N17.9 - ACUTE KIDNEY FAILURE, UNSPECIFIED; N18.9 - CHRONIC KIDNEY DISEASE, UNSPECIFIED Status: Acute Plan: -Cr trending up. Holding fluids now due to problems above -Will continue to monitor daily CMP (8) Anemia Code(s): D64.9 - ANEMIA, UNSPECIFIED Status: Chronic Qualifiers: Anemia type: iron deficiency Plan: -Hgb around pt baseline. Will continue to trend -FOBT negative -iron studies done in the past and low. -Was on iron but is being held due to constipation. (9) Compression fracture Code(s): [id number] - Status: Acute Plan: -Seen on CT -May want to consider tx for osteoporosis out patient. (10) Sacral fracture Code(s): S32.10XA - UNSP FRACTURE OF SACRUM, INIT ENCNTR FOR CLOSED FRACTURE Status: Acute Plan: -Recent incident this monday where she had a fall and injured her ribs and sacral fx noted on CT -Tylenol for pain -Have to avoid narcotics due to constipation and toradol due to Cr -Not having significant pain, if worsens will consider Gabapentin. (11) Physical deconditioning Code(s): R53.81 - OTHER MALAISE Status: Acute Plan: Patient may need to be considered for placement to long term care social worker care facility. (12) Respiratory distress Code(s): R06.00 - DYSPNEA, UNSPECIFIED Status: Acute Plan: -Now requiring BIPAP therapy. -patient was not tolerating O2 4L via nasal cannula -Most likely due to rib pain and full abdomen. -Will continue to monitor - Plan Plan: Patient's prognosis is looking worse today because of the respiratory distress. Will get GI consult and make further decisions from there. Patient's care will be transferred to Dr. Williamson. <Christian Ortiz - Last Filed: 05/23/17 11:22> Attending Addendum - Attending Addendum I personally evaluated the patient and discussed the management with Dr. Ortiz. I agree with the History, Examination, Assessment and Plan documented above with any addition or exceptions noted below. Patient with worsening respiratory status overnight, possibly 2/2 increasing abdominal distention combined with volume overload. She would now be classified as acute exacerbation of chronic hypoxic respiratory failure. She is more comfortable on Bipap and her sats are improved. Continues to have significant abdominal distension and stool burden despite maximal medical therapy including multiple rounds of osmotic laxatives, stool softeners, suppositories, and enemas. NG tube likely will do nothing to compress patient due to the distal nature of her constipation/obstipation. Continues to have normoactive bowel sounds and no evidence of perforation. Consider rectal tube for some colonic decompression. Critical care and GI have been consulted. Continue to monitor volume status but the current most significant problem is her severe abdominal distension that is not responding to standard medical therapy. <Vitor Molina - Last Filed: 05/23/17 11:28>
[2017-05-23] MEDS: Heparin 5,000 UNITS/ML VIAL SC SCH ×2 (08:57→20:52)
[2017-05-23] MEDS: Furosemide 20 MG/2 ML VIAL SLOW IVP SCH (08:57)
[2017-05-23] MEDS ORDERED: Polyethylene Glycol 3350 17 GM Packet PO SCH (09:00)
[2017-05-23 09:08] LABS: ALT (SGPT) 136 U/L (8-55); AST (SGOT) 126 U/L (5-34); Acanthocytes SLIGHT = 1-5 cells (100X) (None Seen); Alkaline Phosphatase 191 U/L (40-150); Anion Gap 15 mmol/L (10-20); BUN (Urea Nitrogen) 44 mg/dL (9.8-20.1); Band 2 % (5-11); Bilirubin, Total 0.8 mg/dL (0.2-1.2); Burr Cells MODERATE= 6-15 cells (100X) (0-1/hpf); Calc. Creatinine Clearance 29 mL/min (70-130); Calcium 9.2 mg/dL (7.8-10.44); Carbon Dioxide 31 mmol/L (23-31); Chloride 93 mmol/L (98-107); Estimated GFR-MDRD 29; Globulin 3.6 g/dL (2.4-3.5); Hematocrit 29.1 % (36.0-47.0); Mean Platelet Volume 8.6 fL (7.4-10.4); Neutrophil 81 % (42-75); Polychromasia SLIGHT = 2-3 cells (100X) (0-2/hpf); Protein, Total 6.6 g/dL (6.0-8.3); Reactive Lymphocytes 1 % (0-10); Red Blood Cell (RBC) Count 3.26 mill/uL (4.20-5.40); Schistocytes SLIGHT = 2-5 cells (100X) (0-1/hpf); White Blood Cell (WBC) Count 11.4 thou/uL (4.8-10.8)
--- NOTE | 2017-05-23 09:25 | RAD ---
SINGLE VIEW OF THE CHEST: Comparison: 05-21-17 History: Shortness of breath, hypoxia. FINDINGS: Single view of the chest shows an enlarged but stable cardiomediastinal silhouette. A stent projects over the heart. Increased interstitial markings are present. There is a qiu-like opacity in the lo wer aspect of the left thorax which likely represents a pleural effusion. IMPRESSION: Stable exam. POS: [facility]
--- NOTE | 2017-05-23 09:42 | RAD ---
ABDOMEN ONE VIEW: History: Abdominal pain. Constipation. FINDINGS: Gas is present throughout the small and large bowel in a nonspecific pattern. Vascular calcification s present throughout the abdomen and pelvis. Osseous structures are demineralized. Pelvic fractures are not well demonstrated on this exam. IMPRESSION: 1. Nonspecific gaseous distention of the bowel. 2. Atherosclerosis. 3. Osteoporosis. POS: [facility]
--- NOTE | 2017-05-23 12:28 | CON ---
DATE OF CONSULTATION: 05/23/2017 REASON FOR CONSULTATION: Acute respiratory failure. HISTORY OF PRESENT ILLNESS: The patient is an 82-year-old female who is well known to our service. She has previously been followed by Dr. Cordova. She was hospitalized on 05/20 with severe constipati on and weakness. Over the course of 3 days, she has become progressively more distended to the poin t where she cannot breathe. She was brought to the [facility] for the purpose of giving her noninvasive m echanical ventilation. It is very difficult to obtain a history from her. PAST MEDICAL HISTORY: 1. Congestive heart failure. 2. Aortic stenosis. 3. Severe deconditioning. 4. Stroke. 5. Hypothyroidism. 6. Hypertension. 7. Right coronary stent. 8. Transcatheter aortic valve replacement. ALLERGIES: None. MEDICATIONS: Prior to admission, levothyroxine 37.5 mcg daily, Lipitor 80 mg daily, aspirin 81 mg d aily, amiodarone 200 mg daily, Plavix 75 mg daily, vitamin daily, prednisone 5 mg daily, ir on sulfate 325 mg b.i.d., furosemide 20 mg daily, folate 1 mg daily, Protonix 40 mg daily, Zofran 4 mg daily. SOCIAL HISTORY: Does not smoke, does not consume alcohol. REVIEW OF SYSTEMS: Difficult to obtain. She is on mechanical ventilation. PHYSICAL EXAMINATION: VITAL SIGNS: Pulse is 91, respiratory rate 25, O2 sat 96%. GENERAL: She is awake. She is using BiPAP, is in mild respiratory distress. HEENT: Unremarkable. NECK: No JVD. LUNGS: Diminished breath sounds at the bases. Poor diaphragmatic excursion. CARDIAC: S1, S2 irregular. ABDOMEN: Profoundly distended and tympanic. EXTREMITIES: Trace edema. LABORATORY DATA: Sodium 132, potassium 5, chloride 93, CO2 of 31, BUN 45, creatinine 1.6, glucose 1 08. I do not see that a magnesium level has been done or phosphate. White blood cell count 9.8, he matocrit 26.7, platelet count 228. ABG; pH 7.41, pCO2 of 58, pO2 of 52 on 3 liters nasal cannula. Chest x-ray shows elevated hemidiaphragms, fairly clear lung curtis. KUB demonstrates a profound sm all bowel and large bowel distention with air. ASSESSMENT: 1. Ileus contributing to acute on chronic respiratory failure. 2. Acute on chronic respiratory failure requiring mechanical ventilation. PLAN: 1. GI consultation. 2. Check chemistry including magnesium and phosphate if they have not been done. 3. Vision BiPAP as needed. 4. Following with you.
[2017-05-23] MEDS: Bisacodyl 5 MG TAB PO SCH (13:54)
[2017-05-23] MEDS: Levothyroxine Sodium 75 MCG TAB PO SCH (13:54)
[2017-05-23] MEDS: Clopidogrel Bisulfate 75 MG TAB PO SCH (13:54)
[2017-05-23] MEDS: Docusate 100 MG CAP PO SCH ×2 (13:54→20:52)
[2017-05-23] MEDS: Folic Acid 1 MG TAB PO SCH (13:55)
[2017-05-23] MEDS: Lactinex Tablet PO SCH (13:55)
[2017-05-23] MEDS: Senokot S 8.6-50 MG TAB PO SCH ×2 (13:55→20:52)
[2017-05-23] MEDS: Polyethylene Glycol 3350 17 GM Packet PO SCH (13:55)
[2017-05-23] MEDS: predniSONE 5 MG TAB PO SCH (13:55)
--- NOTE | 2017-05-23 18:07 | RAD ---
GASTROGRAFIN ENEMA: Date: 05/23/17 HISTORY: Abdominal pain and distention. FINDINGS: Exam was performed with portable technique due to patient inability to come to the radiology departm ent for the procedure. Gastrografin contrast administered per rectum shows a decompressed sigmoid colon and left colon. The re is gaseous distention of the transverse colon and right colon without obstructing mass evident. D ue to the degree of distention, the cecum is never well opacified. There is no evidence of perforati on. IMPRESSION: Severe constipation. No evidence of significant colon obstruction. POS: [facility]
[2017-05-23] MEDS ORDERED: GoLYTELY 4,000 ml Bottle PO SCH (18:45)
[2017-05-23] MEDS: Atorvastatin Calcium 40 MG TAB PO SCH (20:52)
[2017-05-23] MEDS ORDERED: Metoclopramide HCl 10 MG/2 ML VIAL IVP SCH (23:00)
[2017-05-23] MEDS ORDERED: D5 1/2 NS w/20 mEq KCL 1,000 ML IV SCH (23:30)
--- NOTE | 2017-05-24 02:15 | CON ---
DATE OF CONSULTATION: 05/23/2017 REQUESTING PHYSICIAN: Dr. Ortiz. REASON FOR CONSULTATION: Constipation. HISTORY OF PRESENT ILLNESS: Esthela Escamilla is an 82-year-old woman whom I actually met in clinic [place] of months ago at that time for evaluation of anemia. She has a significant past medical histo ry of obesity, chronic kidney disease, CHF, coronary artery disease on aspirin and Plavix and recent extended hospitalization in 11/2016, on the ventilator for 2 weeks with pneumonia, now on home oxyg en and more recently aortic valve replacement in late December in [place]. During that time, she was foun d to have significant anemia, though with negative FOBT. She underwent EGD and colonoscopy at [facility] on 01/23/2017, the EGD was normal, the colonoscopy was also normal, that the cecal base was not jono ched due to significant looping. She was discharged and followed up with me. Hemoglobin has been s lowly increasing since that time, currently at 9.1 and there has been no further evidence of any ove rt gastrointestinal bleeding. She was admitted to the hospital here on 05/20/2017 with fairly acute onset of constipation over the prior several days following a fall and pelvic fracture. She has been having progressive abdominal distention, no bowel movement for several days and associated nausea. Upon admission, she was foun d to be fluid overloaded as well with a CHF exacerbation. Over the past 3 days, multiple modalities have been tried to treat her constipation. She has gotten stool softeners, soapsud enemas and drin k a little bit of a bowel prep, so that was discontinued due to concern for volume overload. She sanders s had mineral oil enemas. Last night, she had hypoxic respiratory failure and was placed on BiPAP, which she continues on today. Despite all these measures, bowel output has been minimal. She did h ave a couple of bowel movements today following her Gastrografin enema. She currently feels her abd omen remains distended, though perhaps less so than earlier today. The Gastrografin enema demonstra tyron dilation of the right colon and transverse colon with no evidence of obstructive process, this i s similar to her initial CT abdomen and pelvis findings. On admission, it was demonstrated a large amount of stool in the dilated proximal colon. REVIEW OF SYSTEMS: Full review of systems including constitutional, head, eyes, ears, nose, throat, GI, , cardiovascular, respiratory, musculoskeletal, and neurologic systems is negative except as noted in the HPI. PAST MEDICAL HISTORY: Coronary artery disease, congestive heart failure, chronic kidney disease, ob esity, COPD on home oxygen, aortic valve replacement on 12/2016 in [place], hypothyroidism, chronic a nemia, GERD, EGD and colonoscopy on 12/2016 at [facility], right coronary stent, stroke. ALLERGIES: None. MEDICATIONS: Prior to admission, levothyroxine, Lipitor, aspirin 81 mg daily, amiodarone, Plavix 75 mg daily, vitamin, prednisone 5 mg daily, ferrous sulfate 325 mg b.i.d., furosemide, folic acid, Protonix 40 mg daily, Zofran 4 mg daily. SOCIAL HISTORY: No smoking or alcohol abuse. FAMILY HISTORY: Noncontributory. PHYSICAL EXAMINATION: VITAL SIGNS: Temperature 98.0, pulse 89, blood pressure 117/72, 90% oxygen saturation on BiPAP. GENERAL: Critically ill, 82-year-old woman lying in bed, fairly comfortably on BiPAP, seems to be t olerating it well. MENTAL STATUS: Alert and oriented to person and place, can answer questions yes or no and report on symptoms. SKIN: No jaundice, no rashes were palpable. She is a bit pale. EYES: No scleral icterus. Extraocular movements intact. ENT: Mucous membranes moist, no oral lesions. LYMPH: No submandibular, supraclavicular lymphadenopathy. THYROID: Nontender to palpation. HEART: Regular rate and rhythm. LUNGS: She is currently on BiPAP, bibasilar crackles, tolerating the BiPAP well. ABDOMEN: Distended, tympanitic to percussion throughout, soft, some mild tenderness to palpation di ffusely, but no guarding or rebound tenderness. EXTREMITIES: No peripheral edema. VESSELS: Radial pulses 2+ bilaterally. NEUROLOGICAL: Cranial nerves II-XII intact bilaterally. LABORATORY STUDIES: WBC 11.4; hemoglobin 9.1, which is stable this admission and improved from few months ago; platelets 277. BUN 44, creatinine 1.67, sodium 134, potassium 4.7. INR 1.1, total bili delcid 0.8, alkaline phosphatase 191, AST of 126, ALT 136, albumin 3.0. Troponin 0.086, BNP is eleva tyron at 697.7. Lipase normal at 12. IMAGING STUDIES: CT abdomen and pelvis on 05/20/2017 showed a large amount of stool in the dilated proximal colon, tortuous colon, cholelithiasis, normal appearing liver and spleen, common bile duct measuring 8 mm, but no intrahepatic biliary dilation. On 05/21/2017, abdominal ultrasound showed ch olelithiasis, common bile duct measuring 9 mm, otherwise normal. Today, Gastrografin enema demonstr ated decompression of the left colon and dilation of the right colon and transverse colon with no ev idence of obstructive process. ASSESSMENT AND PLAN: 1. Ileus. 2. Constipation. 3. Abdominal distention, secondary to ileus. This all seems fairly acute following her recent frac ture, relative immobility and need for pain medications. I note the imaging which demonstrates what appears to be retained stool and primarily distention in the right colon with decompressed left col on. I see no indication for any endoscopic investigation or intervention, particularly if she under went EGD and colonoscopy fairly recently in 12/2016 elsewhere. Regarding management of the ileus, c ontinue to mobilize as much as possible, manage electrolytes, avoid further opiate pain medications if possible. I do not think further enemas are going to be of any use since the left side of her co sol and rectum is really decompressed. Laxatives will really need to come from above. I understand the concern for exacerbating volume overload, but I would recommend going ahead and restarting a ga llon of GoLYTELY, which she can just work on slowly over the course of the next day. In addition, i f we can get Movantik here in the hospital, then I would go ahead and start her on 12.5 mg daily. W ould continue with a liquid diet. GI will follow along. Thank you for the consultation. Please call with questions or concerns.
[2017-05-24 04:59] LABS: Hematocrit 29.1 % (36.0-47.0); Red Blood Cell (RBC) Count 3.25 mill/uL (4.20-5.40); White Blood Cell (WBC) Count 12.6 thou/uL (4.8-10.8)
[2017-05-24] MEDS: Levothyroxine Sodium 75 MCG TAB PO SCH (05:28)
[2017-05-24 05:30] LABS: Anion Gap 17 mmol/L (10-20); BUN (Urea Nitrogen) 49 mg/dL (9.8-20.1); Calc. Creatinine Clearance 21 mL/min (70-130); Calcium 9.4 mg/dL (7.8-10.44); Carbon Dioxide 32 mmol/L (23-31); Chloride 94 mmol/L (98-107); Estimated GFR-MDRD 21; Magnesium 2.2 mg/dL (1.6-2.6); Phosphorus 4.6 mg/dL (2.3-4.7)
--- NOTE | 2017-05-24 06:53 | PDOC.FM ---
- Subjective Subjective: CC: Unable to talk on BiPAP HPI: patient resting on BiPAP in bed. Per night team, unable to tolerate golytely overnight. no other concerns at this time. No family in room. - Objective MAR Reviewed: Yes Vital Signs & Weight: Vital Signs (12 hours) Temp Pulse Resp BP Pulse Ox 05/24/17 06:46 98 05/24/17 06:44 89 05/24/17 06:43 84 19 96 05/24/17 04:00 98.7 F 90 22 H 102/65 99 05/24/17 02:25 91 05/24/17 01:21 88 22 H 98 05/23/17 23:45 96.9 F L 84 26 H 118/67 98 05/23/17 22:53 83 05/23/17 20:00 98.4 F 84 28 H 118/62 95 05/23/17 19:59 84 20 95 Weight Admit Weight 67.222 kg Weight 67.041 kg I&O: 05/22/17 05/23/17 05/24/17 06:59 06:59 06:59 Intake Total 1290 19765 Output Total 376 Balance 1289 Result Diagrams: 05/24/17 04:44 05/24/17 04:44 <Cole Williamson - Last Filed: 05/24/17 07:10> - Objective Vital Signs & Weight: Vital Signs (12 hours) Temp Pulse Resp BP Pulse Ox 05/24/17 12:27 84 05/24/17 08:29 74 05/24/17 07:56 97.9 F 85 25 H 96/53 L 99 05/24/17 06:46 98 05/24/17 06:44 89 05/24/17 06:43 84 19 96 05/24/17 04:00 98.7 F 90 22 H 102/65 99 05/24/17 02:25 91 05/24/17 01:21 88 22 H 98 Weight Admit Weight 67.222 kg Weight 67.041 kg I&O: 05/23/17 05/24/17 05/25/17 06:59 06:59 06:59 Intake Total 1976 775 Output Total 376 Balance 1976 Result Diagrams: 05/24/17 04:44 05/24/17 10:53 <Ema Ervin - Last Filed: 05/24/17 13:03> Phys Exam - Physical Examination Constitutional: NAD HEENT: sclera anicteric on BiPAP Respiratory: no wheezing, no rales, clear to auscultation bilateral Cardiovascular: RRR, no significant murmur Gastrointestinal: soft, non-tender, positive bowel sounds severe distention Musculoskeletal: pulses present, edema present (trace) Neurological: non-focal, moves all 4 limbs Psychiatric: normal affect, A&O x 3 <Cole Williamson - Last Filed: 05/24/17 07:10> Dx/Plan (1) Acute respiratory failure Code(s): J96.00 - ACUTE RESPIRATORY FAILURE, UNSP W HYPOXIA OR HYPERCAPNIA Status: Acute Qualifiers: Respiratory failure complication: hypoxia Qualified Code(s): J96.01 - Acute respiratory failure with hypoxia Plan: Continue on BiPAP. - Attempted to wean per Pulm - maintaining oxygen saturations (2) CHF exacerbation Code(s): I50.9 - HEART FAILURE, UNSPECIFIED Status: Acute Qualifiers: Congestive heart failure type: unspecified congestive heart failure type Qualified Code(s): I50.9 - Heart failure, unspecified Plan: TTE ordered but not taken Monitor I&O - will attempt to give Golytely as patient tolerates. Does not appear to be clinically overloaded. - repeat CXR today. (3) Constipation Code(s): K59.00 - CONSTIPATION, UNSPECIFIED Status: Acute Qualifiers: Constipation type: slow transit constipation Qualified Code(s): K59.01 - Slow transit constipation Plan: GI following. Recommended starting small amounts of GoLytely and Movantik - did not tolerate GoLytely (4) Acute kidney injury Code(s): N17.9 - ACUTE KIDNEY FAILURE, UNSPECIFIED Status: Acute Plan: Creatinine trending up. still making urine. Potassium elevated this morning at 5.2 - repeat BMP at 1100 (5) CKD (chronic kidney disease) stage 3, GFR 30-59 ml/min Code(s): N18.3 - CHRONIC KIDNEY DISEASE, STAGE 3 (MODERATE) Status: Acute Plan: acutely worsening. will monitor. (6) Physical deconditioning Code(s): R53.81 - OTHER MALAISE Status: Acute Plan: CM will be consulted for placement once patient begins to improve. <Cole Williamson - Last Filed: 05/24/17 07:10> Attending Addendum - Attending Addendum I personally evaluated the patient and discussed the management with Dr. Williamson I agree with the History, Examination, Assessment and Plan documented above with any addition or exceptions noted below. 82 yo female with multiple medical problems admitted for ileus HD# 4 Intubated this AM due to continuous use of BiPAP and need for increase fluids. Pulm following. Ileus: GI following. OG in place. Bowel regiment started. Negative EGD/Colon December 2016. CKD III to : Worsening GFR overnight. Renal consult as needed. Renally dose all meds. rEFHF: Will need to give IV fluids that patient not able to tolerate. Intubated this AM for this reason. Cards consult as needed. Transaminitis: GI following. Cholithiasis, duct dilation and wall thickening noted on sono. Consider antibx since not able to do surg. Will discuss with GI today. Continue close follow up throughout the day. Will discuss recs with specialist on case. Rajni <Ema Ervin - Last Filed: 05/24/17 13:03>
--- NOTE | 2017-05-24 08:06 | PRG ---
DATE OF SERVICE: 05/24/2017 SUBJECTIVE: The patient is still struggling with the effects of constipation. She had some liquid stool after an enema yesterday. PHYSICAL EXAMINATION: VITAL SIGNS: On exam today, her temperature is 98.7, pulse 89, respiration 19, O2 saturation 98%, b lood pressure 102/65. She remains on the BiPAP. HEENT: Otherwise unremarkable. NECK: No JVD. CHEST: Fairly clear. CARDIAC: S1 and S2 regular. ABDOMEN: Distended, slightly tympanic. EXTREMITIES: No edema. LABORATORY DATA AND X-RAY FINDINGS: Sodium 130, potassium 5.2, chloride 94, CO2 32, BUN 49, creatin ine 2.2, glucose 106, magnesium 2.2, phosphorus 4.6, calcium 9.4. White blood cell count 12.6, glo tocrit 29.1, and platelet count 273. Chest x-ray showed no acute changes. ASSESSMENT: 1. Constipation/obstipation. 2. Acute respiratory failure related to the profound constipation. 3. Prerenal azotemia. PLAN: I would insert an OG tube and try to give GoLYTELY that way. If she can tolerate the OG tube with the BiPAP, then she may require endotracheal intubation.
--- NOTE | 2017-05-24 08:09 | RAD ---
SINGLE VIEW OF THE CHEST: COMPARISON: 05/23/17. HISTORY: Followup exam for shortness of breath and hypoxia. FINDINGS: A single view of the chest shows an enlarged cardiomediastinal silhouette with atherosclerotic calci fications in the aorta. Increased interstitial lung markings are present. A stent is seen projecti ng over the heart. There may be a small left pleural effusion. IMPRESSION: Stable cardiomegaly and small left pleural effusion. POS: [facility]
--- NOTE | 2017-05-24 08:16 | RAD ---
SINGLE VIEW OF THE CHEST: COMPARISON: 05/23/17. HISTORY: Hypoxia on Bi-PAP. FINDINGS: A single view of the chest shows an enlarged cardiomediastinal silhouette with atherosclerotic calci fications in the aorta. A stent projects over the heart. There appear to be small bilateral pleura l effusions. IMPRESSION: Cardiomegaly and small bilateral pleural effusions. POS: [facility]
[2017-05-24] MEDS ORDERED: Propofol 1,000 MG/100 ML VIAL IV ONE (08:24)
[2017-05-24] MEDS ORDERED: Sodium Chloride 0.9% 1,000 ML IV SCH (08:45)
[2017-05-24] MEDS ORDERED: Sedation Protocol FS ONE (08:55)
[2017-05-24] MEDS ORDERED: GoLYTELY 4,000 ml Bottle PER TUBE SCH (08:55)
[2017-05-24] MEDS ORDERED: guaiFENesin ER 600 MG TAB PO SCH (09:00)
--- NOTE | 2017-05-24 09:11 | PRG ---
DATE OF SERVICE: 05/24/2017 I was able to speak to the patient's son when he arrived. I told him that the patient was doing poo rly with the BiPAP. He has the power of insurance defense attorney and wanted to be very aggressive in her care and h e did confirm this with the patient. She was brought down to the CCU. She was intubated by the [facility] resident on the first attempt with my direct supervision with a 7.5 endotracheal tube o rally. Tube placement was confirmed by auscultation. Postoperative x-ray is pending. The patient will receive GoLYTELY to help her clear the area of constipation. She will remain on co chanical ventilation for the time being. Family will be updated.
[2017-05-24] MEDS ORDERED: Morphine Sulfate 2 MG/ML SYRINGE SLOW IVP PRN (09:12)
[2017-05-24] MEDS ORDERED: Lorazepam 2 MG/ML VIAL SLOW IVP PRN (09:12)
[2017-05-24] MEDS ORDERED: Fentanyl 20 MCG/ML 250 ML IVPB SCH (09:12)
[2017-05-24 09:35] LABS: Oxyhemoglobin 90.7 % (94.0-97.0); Sodium 135 mmol/L (135-148)
[2017-05-24 09:39] LABS: Mechanical Tidal Volume 400 ml; Mode SIMV; Pressure Support 15 cmH2O; Vent YES
[2017-05-24] MEDS: Sodium Chloride 0.9% 1,000 ML IV SCH ×2 (09:45→19:17)
[2017-05-24] MEDS: WATER IVPB SCH ×4 (10:12→21:00)
[2017-05-24] MEDS: DEXTROSE 5% IVPB SCH ×4 (10:12→21:00)
[2017-05-24] MEDS: AMIODARONE HCL IVPB SCH ×4 (10:12→21:00)
[2017-05-24] MEDS: Docusate 100 MG CAP PO SCH ×2 (10:14→20:58)
[2017-05-24] MEDS: Bisacodyl 5 MG TAB PO SCH (10:14)
[2017-05-24] MEDS: Polyethylene Glycol 3350 17 GM Packet PO SCH (10:15)
[2017-05-24] MEDS: Senokot S 8.6-50 MG TAB PO SCH ×2 (10:15→20:59)
[2017-05-24] MEDS: Hydrocortisone Sod Succ/PF 100 mg/2 ml Vial IVP SCH ×2 (10:18→21:00)
[2017-05-24] MEDS: Clopidogrel Bisulfate 75 MG TAB PO SCH (10:21)
[2017-05-24] MEDS: Heparin 5,000 UNITS/ML VIAL SC SCH ×2 (10:21→21:00)
[2017-05-24] MEDS: Lactinex Tablet PO SCH (10:21)
--- NOTE | 2017-05-24 10:24 | RAD ---
RADIOGRAPH CHEST 1 VIEW: Date: 05-24-17 Time: 9:08 a.m. HISTORY: 82-year-old female status post intubation. COMPARISON: 05-24-17 at 7:29 a.m. FINDINGS: This is a supine image. Endotracheal tube has been placed, with distal tip directed at the origin of the right mainstem bronchus, less than 1 cm superior to the man. NG tube has been placed, coursi ng along the expected location of the gastric body. Cardiomegaly remains. Dense opacification of ret rocardiac portion of left lower lobe remains. Metallic stent at root of aorta is again noted. Diffus anil prominent interstitial markings. No abhishek pulmonary alveolar edema. IMPRESSION: 1. Status post intubation and nasogastric tube placement. 2. Cardiomegaly and borderline congestive changes. 3. Stent at aortic root. 4. Increased density in left lower lobe. 5. No major interval change in the appearance of the lungs. [place] POS: [facility]
[2017-05-24] MEDS: Metoclopramide HCl 10 MG/2 ML VIAL IVP SCH ×2 (10:47→21:01)
[2017-05-24 11:23] LABS: Anion Gap 15 mmol/L (10-20); BUN (Urea Nitrogen) 49 mg/dL (9.8-20.1); Calc. Creatinine Clearance 21 mL/min (70-130); Calcium 8.7 mg/dL (7.8-10.44); Carbon Dioxide 29 mmol/L (23-31); Chloride 97 mmol/L (98-107); Estimated GFR-MDRD 21
--- NOTE | 2017-05-24 19:02 | PRG ---
DATE OF SERVICE: 05/24/2017 GI INPATIENT DAILY PROGRESS NOTE SUBJECTIVE: Ms. Escamilla had increasing respiratory failure this morning and was endotracheally intubat ed, orogastric tube was placed. She was tolerating the GoLYTELY p.o. last night, but this has been administered slowly over the course of the day. She has received over half of the gallon. Per nurs ing staff, she has been having several large bowel movements now. Stool is not yet clear. Abdomen remains distended. PHYSICAL EXAMINATION: VITAL SIGNS: Temperature 98.7, pulse 85, blood pressure 96/53, and 95% oxygen saturation on ventila tor. GENERAL: Sedated and intubated. Orogastric tube and endotracheal tube in place. HEART: Regular rate and rhythm. LUNGS: Bilateral vent sounds. ABDOMEN: Remains moderately distended, tympanitic to percussion. Bowel sounds are active. Abdomen is not tense. EXTREMITIES: No peripheral edema. LABORATORY DATA: WBC 12.6, hemoglobin 9.1, and platelets 273. Sodium 136, potassium 5.3, BUN 49, a nd creatinine 2.27. ASSESSMENT AND PLAN: 1. Ileus. 2. Constipation. 3. Abdominal distention. Continue Movantik. Would finish out a gallon of GoLYTELY over the course of tonight and tomorrow morning, evaluate for clearing of stools. No evidence of obstructive proce ss on imaging. 4. Elevated liver function tests. 5. Cholelithiasis. I do note the elevated liver function tests, cholelithiasis and some degree of common bile duct dilation on ultrasound imaging earlier this admission. I doubt this is a primary d river of her clinical presentation; however. Would recommend trending the liver function tests tiago rrow and evaluating for abdominal pain once the patient is able to be extubated.
[2017-05-25 03:57] LABS: #Lymphocytes 0.7 thou/uL (1.20-3.40); #Neutrophils 8.6 thou/uL (1.40-6.50); %Basophils 0.1 % (0.0-1.0); %Eosinophils 0.3 % (0.0-10.0); %Lymphocytes 6.4 % (21.0-51.0); Hematocrit 23.3 % (36.0-47.0); Mean Platelet Volume 8.3 fL (7.4-10.4); Red Blood Cell (RBC) Count 2.66 mill/uL (4.20-5.40); White Blood Cell (WBC) Count 10.3 thou/uL (4.8-10.8)
[2017-05-25 04:17] LABS: ALT (SGPT) 145 U/L (8-55); AST (SGOT) 175 U/L (5-34); Alkaline Phosphatase 180 U/L (40-150); Anion Gap 19 mmol/L (10-20); BUN (Urea Nitrogen) 48 mg/dL (9.8-20.1); Bilirubin, Total 1.2 mg/dL (0.2-1.2); Calc. Creatinine Clearance 22 mL/min (70-130); Calcium 8.1 mg/dL (7.8-10.44); Carbon Dioxide 27 mmol/L (23-31); Chloride 97 mmol/L (98-107); Estimated GFR-MDRD 22; Globulin 2.9 g/dL (2.4-3.5); Magnesium 1.7 mg/dL (1.6-2.6); Protein, Total 5.2 g/dL (6.0-8.3)
[2017-05-25] MEDS: Sodium Chloride 0.9% 1,000 ML IV SCH ×2 (05:11→19:54)
[2017-05-25] MEDS: Propofol 1,000 MG/100 ML VIAL IV PRN (05:11)
[2017-05-25] MEDS: Levothyroxine Sodium 100 MCG VIAL SLOW IVP SCH (05:12)
[2017-05-25] MEDS ORDERED: Levothyroxine Sodium 200 MCG VIAL IVP SCH (06:00)
--- NOTE | 2017-05-25 06:46 | PDOC.FM ---
- Subjective Subjective: CC: Intubated HPI: Sedated and intubated. Unable to provide history. No family at bedside at time of exam. Nurse states she has had several dark bowel movement. - Objective Vital Signs & Weight: Vital Signs (12 hours) Temp Pulse Resp Pulse Ox 05/25/17 06:35 74 05/25/17 06:00 18 05/25/17 04:00 20 05/25/17 03:00 98.2 F 05/25/17 02:00 22 H 05/25/17 00:00 22 H 05/24/17 23:39 90 18 98 05/24/17 23:00 98.8 F 05/24/17 22:00 23 H 05/24/17 20:00 99 F 85 23 H 95 05/24/17 19:00 99 F 85 18 93 L Weight Admit Weight 67.222 kg Weight 71.4 kg Most Recent Monitor Data Heart Rate from ECG 87 NIBP 95/58 NIBP BP-Mean 68 Respiration from ECG 19 SpO2 99 I&O: 05/23/17 05/24/17 05/25/17 06:59 06:59 06:59 Intake Total 3420 655 9627 Output Total 376 2940 Balance 5436 229 6110 Result Diagrams: 05/25/17 03:46 05/25/17 03:46 <Cole Williamson W - Last Filed: 05/25/17 08:06> - Objective Vital Signs & Weight: Vital Signs (12 hours) Temp Pulse Resp Pulse Ox 05/25/17 10:26 86 05/25/17 10:00 18 05/25/17 08:00 20 05/25/17 06:35 74 05/25/17 06:00 18 05/25/17 04:00 20 05/25/17 03:00 98.2 F 05/25/17 02:00 22 H 05/25/17 00:00 22 H 05/24/17 23:39 90 18 98 Weight Admit Weight 67.222 kg Weight 71.4 kg Most Recent Monitor Data Heart Rate from ECG 84 NIBP 106/60 NIBP BP-Mean 66 Respiration from ECG 25 SpO2 96 I&O: 05/24/17 05/25/17 05/26/17 06:59 06:59 06:59 Intake Total 775 7726 Output Total 376 2940 Balance 399 4786 Result Diagrams: 05/25/17 03:46 05/25/17 03:46 <ArcadioEam - Last Filed: 05/25/17 11:43> Phys Exam - Physical Examination Constitutional: NAD HEENT: moist MMs ET tube in place Neck: no nodes, no JVD Respiratory: no wheezing, no rales Cardiovascular: RRR, no significant murmur Gastrointestinal: soft, positive bowel sounds Distention imporved since yesterday <TeriCole Nohemi - Last Filed: 05/25/17 08:06> Dx/Plan (1) Acute respiratory failure Code(s): J96.00 - ACUTE RESPIRATORY FAILURE, UNSP W HYPOXIA OR HYPERCAPNIA Status: Acute Qualifiers: Respiratory failure complication: hypoxia Qualified Code(s): J96.01 - Acute respiratory failure with hypoxia Plan: Intubated on 05/24 - vital stable - continue ventilator while abdomen is distended. (2) Constipation Code(s): K59.00 - CONSTIPATION, UNSPECIFIED Status: Acute Qualifiers: Constipation type: slow transit constipation Qualified Code(s): K59.01 - Slow transit constipation Plan: GI following. - Received 4000 mL golytely via OG tube yesterday - will give additional dose of gylytely today (3) CHF exacerbation Code(s): I50.9 - HEART FAILURE, UNSPECIFIED Status: Acute Qualifiers: Congestive heart failure type: unspecified congestive heart failure type Qualified Code(s): I50.9 - Heart failure, unspecified Plan: TTE showed normal EF with minimal valve dysfunction - clinically, patient is not overloaded but given state of illness and general baseline health she could easily become volume overloaded. - monitor I&O- received large volume of bowel prep and IV fluids yesterday - repeat CXR tomorrow (4) Acute kidney injury Code(s): N17.9 - ACUTE KIDNEY FAILURE, UNSPECIFIED Status: Acute Plan: Cr trending down. Urine output improved. Likely prerenal in etiology. (5) Elevated LFTs Code(s): R79.89 - OTHER SPECIFIED ABNORMAL FINDINGS OF BLOOD CHEMISTRY Status : Acute Plan: Remain elevated since admission. RUQ US concerning for cholelithiais with comon duct dilitation - will hold off antibiotics for now since she is afebrile and CBC is normal - low threshold for initiating empiric coverage. (6) CKD (chronic kidney disease) stage 3, GFR 30-59 ml/min Code(s): N18.3 - CHRONIC KIDNEY DISEASE, STAGE 3 (MODERATE) Status: Acute Plan: will monitor. (7) Physical deconditioning Code(s): R53.81 - OTHER MALAISE Status: Acute Plan: CM will be consulted for placement once patient begins to improve. <Cole Williamson - Last Filed: 05/25/17 08:06> Attending Addendum - Attending Addendum I personally evaluated the patient and discussed the management with Dr. Williamson I agree with the History, Examination, Assessment and Plan documented above with any addition or exceptions noted below. 82 yo female with multiple medical problems admitted for severe proximal colon constipation with associated ilieus HD# 5 Remains on the vent for respiratory support due to fluid overload. Tolerating vent well. Met & resp alkalosis this AM on ABG. Vent setting adjusted. Pulm following and managing. Constipation: Has received 4L of bowel prep which along with OG tube could likely be contributing to metabolic alkalosis. Has had liquid bowel movements. Abdominal distention improved somewhat today on exam. GI following. CKD III: BUN/CR/GFR stable. Not much change overnight. Continue to monitor closely. Now with met alkalosis this AM on ABG. Renally dose all meds. rEFHF: Continue current care. Transaminitis: GI following. Cholithiasis, duct dilation and wall thickening noted on sono. Need to discuss with GI if we should trend imaging to monitor progression since patient intubated. Monitor closely for s/sx of complications. Hep B and C negative. Mixed anemia: Monitor closely. Will need iron infusion vs transfusion. Continue close follow up throughout the day. Will discuss with specialist on case. Rajni <Ema Ervin - Last Filed: 05/25/17 11:43>
[2017-05-25 06:50] LABS: Oxyhemoglobin 95.6 % (94.0-97.0); Sodium 136 mmol/L (135-148)
[2017-05-25 06:51] LABS: Mechanical Tidal Volume 450 ml; Mode SIMV; Pressure Support 15 cmH2O; Vent YES
[2017-05-25] MEDS ORDERED: GoLYTELY 4,000 ml Bottle PER TUBE SCH (07:15)
--- NOTE | 2017-05-25 07:27 | PRG ---
DATE OF SERVICE: 05/25/2017 Thirty-five minutes critical care time. The patient remains intubated on mechanical ventilation. She did have several bowel movements yeste rday, but her stool with not yet clear. PHYSICAL EXAMINATION: VITAL SIGNS: On exam her temperature is 98.2, pulse 87, blood pressure 95/58, total intake for 24 h ours 7726, output 2940, weight 157 pounds. HEENT: Unremarkable. NECK: No JVD. LUNGS: Fairly clear. CARDIAC: S1 and S2 regular with a 2/6 systolic murmur at the left sternal border. ABDOMEN: Softer. Bowel sounds are high pitched. EXTREMITIES: No clubbing, cyanosis, trace edema. LABORATORY DATA: Sodium 139, potassium 4.1, chloride 97, CO2 of 27, BUN 48, creatinine 2.1, glucose 74, AST 175, ALT 145, alkaline phosphatase 180. ABG; pH 7.55, pCO2 of 32, pO2 74. That was on SIM V rate 18, tidal volume 450, PEEP 5, pressure support 15, FiO2 50%. White blood cell count 10, glo tocrit 23.3, platelet count 213. ASSESSMENT: 1. Acute respiratory failure secondary to abdominal distention from constipation. 2. Renal insufficiency. 3. History of recent aortic valve replacement. 4. Elevated liver function tests. PLAN: 1. Would continue mechanical ventilation for 24 more hours, giving more GoLYTELY until stool is cl ear. 2. Adjust mechanical ventilation.
[2017-05-25] MEDS: WATER IVPB SCH ×4 (09:36→20:40)
[2017-05-25] MEDS: Metoclopramide HCl 10 MG/2 ML VIAL IVP SCH ×2 (09:36→20:40)
[2017-05-25] MEDS: AMIODARONE HCL IVPB SCH ×4 (09:36→20:40)
[2017-05-25] MEDS: DEXTROSE 5% IVPB SCH ×4 (09:36→20:40)
[2017-05-25] MEDS: Docusate 100 MG CAP PO SCH ×2 (09:38→19:55)
[2017-05-25] MEDS: Heparin 5,000 UNITS/ML VIAL SC SCH ×2 (09:38→20:40)
[2017-05-25] MEDS: Hydrocortisone Sod Succ/PF 100 mg/2 ml Vial IVP SCH ×2 (09:38→20:40)
[2017-05-25] MEDS: Bisacodyl 5 MG TAB PO SCH (09:38)
[2017-05-25] MEDS: Lactinex Tablet PO SCH (09:40)
[2017-05-25] MEDS: Polyethylene Glycol 3350 17 GM Packet PO SCH (09:40)
[2017-05-25] MEDS: Senokot S 8.6-50 MG TAB PO SCH ×2 (09:41→19:56)
[2017-05-25] MEDS: Clopidogrel Bisulfate 75 MG TAB PO SCH (09:52)
--- NOTE | 2017-05-25 19:15 | PRG ---
DATE OF SERVICE: 05/25/2017 SUBJECTIVE: Ms. Escamilla remains on the ventilator. She has continued to receive GoLYTELY slowly throu gh the orogastric tube. Per nursing staff, she has continued to have a lot of bowel movements, thou gh still not clear. She is working on a second bottle of GoLYTELY. She is awake and able to answer yes or no questions. She denies any significant abdominal discomfort or tenderness to palpation in the right upper quadrant. She feels that her abdomen is less distended as well. OBJECTIVE: VITAL SIGNS: Temperature 98.7, pulse 88, blood pressure 102/58, 96% oxygen saturation on ventilator . GENERAL: Intubated, tolerating ventilation well, in no acute distress, able to answer questions chikis ropriately in the affirmative or negative. HEART: Regular rate and rhythm. LUNGS: Bilateral vent sounds. No respiratory distress. ABDOMEN: Still distended, but to a lesser degree than yesterday, quite soft to palpation. Bowel so unds active throughout, nontender to palpation. EXTREMITIES: No peripheral edema. LABORATORY STUDIES: WBC down to 10.3, hemoglobin 7.5, platelets 213. INR 1.1. Sodium 139, potassi um 4.1, BUN 48, creatinine down to 2.16, total bilirubin 1.2, alkaline phosphatase 180, AST 175, ALT 145. ASSESSMENT AND PLAN: 1. Ileus. 2. Constipation. 3. Abdominal distention, improving. Agree with finishing out the second gallon of GoLYTELY. Follo wing this, we would resume the lactulose and MiraLax tomorrow, continue to monitor abdominal distent ion and stool output. Hopefully, she will be able to be extubated tomorrow. We would also continue the Movantik 12.5 mg daily. 4. Elevated liver function tests. 5. Chololithiasis. Note, LFTs remain elevated to a modest degree with total bilirubin still in nor mal range. Again, with no appreciable right upper quadrant discomfort, no leukocytosis, I still thi nk this is all likely incidental and not really related to her primary presentation. Certainly woul d not recommend an ERCP at this time. Once more clinically stabilized, MRCP could be obtained for b sveta visualization of the bile duct, rule out choledocholithiasis. Please call with questions or concerns.
[2017-05-26] MEDS: Propofol 1,000 MG/100 ML VIAL IV PRN ×2 (01:34→22:28)
[2017-05-26] MEDS: Sodium Chloride 0.9% 1,000 ML IV SCH (01:34)
[2017-05-26 04:18] LABS: Hematocrit 22.4 % (36.0-47.0); Red Blood Cell (RBC) Count 2.51 mill/uL (4.20-5.40); White Blood Cell (WBC) Count 10.4 thou/uL (4.8-10.8)
[2017-05-26 04:36] LABS: Acanthocytes MODERATE= 6-15 cells (100X) (None Seen); Band 1 % (5-11); Burr Cells SLIGHT = 2-5 cells (100X) (0-1/hpf); Neutrophil 93 % (42-75); Schistocytes SLIGHT = 2-5 cells (100X) (0-1/hpf)
[2017-05-26] MEDS: Levothyroxine Sodium 100 MCG VIAL SLOW IVP SCH (05:18)
[2017-05-26 06:37] LABS: Calcium 8.3 mg/dL (7.8-10.44); Chloride 100 mmol/L (98-107); Magnesium 1.8 mg/dL (1.6-2.6)
[2017-05-26 06:39] LABS: Protein, Total 5.2 g/dL (6.0-8.3)
[2017-05-26 06:40] LABS: Anion Gap 23 mmol/L (10-20); Bilirubin, Total 1.3 mg/dL (0.2-1.2); Carbon Dioxide 23 mmol/L (23-31)
[2017-05-26 06:41] LABS: Alkaline Phosphatase 188 U/L (40-150)
[2017-05-26 06:42] LABS: BUN (Urea Nitrogen) 47 mg/dL (9.8-20.1); Calc. Creatinine Clearance 24 mL/min (70-130); Estimated GFR-MDRD 23
[2017-05-26 06:43] LABS: AST (SGOT) 154 U/L (5-34)
[2017-05-26 06:44] LABS: ALT (SGPT) 138 U/L (8-55)
[2017-05-26 06:50] LABS: Phosphorus 4.3 mg/dL (2.3-4.7)
[2017-05-26 07:21] LABS: Oxyhemoglobin 87.8 % (94.0-97.0); Sodium 141 mmol/L (135-148)
[2017-05-26 07:24] LABS: Mechanical Tidal Volume 450 ml; Modified Allen's Test POSITIVE; Pressure Support 10 cmH2O; Vent YES
--- NOTE | 2017-05-26 07:24 | PDOC.FM ---
- Subjective Subjective: CC: Abdominal pain improved HPI: Alert on ventilator. attempting to speak. Nurse reports stools are clearing up. No events overnight. - Objective MAR Reviewed: Yes Vital Signs & Weight: Vital Signs (12 hours) Temp Pulse Resp BP Pulse Ox 05/26/17 07:00 98.3 F 05/26/17 06:28 92 98/61 05/26/17 06:25 90 23 H 93 L 05/26/17 06:00 18 05/26/17 04:00 18 05/26/17 03:00 98.2 F 05/26/17 02:00 16 05/26/17 00:00 18 05/25/17 23:33 85 17 96 05/25/17 23:00 98.6 F 05/25/17 22:00 18 05/25/17 20:00 18 05/25/17 19:32 98.4 F 89 18 98 Weight Admit Weight 67.222 kg Weight 72.17 kg Most Recent Monitor Data Heart Rate from ECG 91 NIBP 93/51 NIBP BP-Mean 76 Respiration from ECG 21 SpO2 92 I&O: 05/25/17 05/26/17 05/27/17 06:59 06:59 06:59 Intake Total 7726 6814 0 Output Total 2940 1130 45 Balance 4786 5684 -45 Result Diagrams: 05/26/17 03:59 05/26/17 06:05 <Cole Williamson W - Last Filed: 05/26/17 07:22> - Objective Vital Signs & Weight: Vital Signs (12 hours) Temp Pulse Resp BP Pulse Ox 05/26/17 10:09 88 85/49 L 05/26/17 08:00 20 05/26/17 07:21 98.3 F 90 21 H 94 L 05/26/17 07:00 98.3 F 05/26/17 06:28 92 98/61 05/26/17 06:25 90 23 H 93 L 05/26/17 06:00 18 05/26/17 04:00 18 05/26/17 03:00 98.2 F 05/26/17 02:00 16 Weight Admit Weight 67.222 kg Weight 72.17 kg Most Recent Monitor Data Heart Rate from ECG 94 NIBP 86/56 NIBP BP-Mean 74 Respiration from ECG 18 SpO2 88 I&O: 05/25/17 05/26/17 05/27/17 06:59 06:59 06:59 Intake Total 7726 6814 0 Output Total 2940 1130 45 Balance 4786 5684 -45 Result Diagrams: 05/26/17 03:59 05/26/17 06:05 <ErvinEma - Last Filed: 05/26/17 12:40> Phys Exam - Physical Examination Constitutional: NAD HEENT: moist MMs, sclera anicteric Respiratory: no wheezing difuse rhonchi Cardiovascular: RRR, no significant murmur Gastrointestinal: soft, non-tender moderate distention. Musculoskeletal: edema present (1+) Neurological: moves all 4 limbs <TeriCole - Last Filed: 05/26/17 07:22> Dx/Plan (1) Acute respiratory failure Code(s): J96.00 - ACUTE RESPIRATORY FAILURE, UNSP W HYPOXIA OR HYPERCAPNIA Status: Acute Qualifiers: Respiratory failure complication: hypoxia Qualified Code(s): J96.01 - Acute respiratory failure with hypoxia Plan: Intubated on 05/24 - vital stable - will likely start to wean off vent today but will defer to Pulm/CCU for final decision. (2) Constipation Code(s): K59.00 - CONSTIPATION, UNSPECIFIED Status: Acute Qualifiers: Constipation type: slow transit constipation Qualified Code(s): K59.01 - Slow transit constipation Plan: GI following. - Received additional 4000 mL golytely via OG tube yesterday - restart lactulose and miralax per GI. (3) CHF exacerbation Code(s): I50.9 - HEART FAILURE, UNSPECIFIED Status: Suspected Qualifiers: Congestive heart failure type: unspecified congestive heart failure type Qualified Code(s): I50.9 - Heart failure, unspecified Plan: TTE showed normal EF with minimal valve dysfunction - clinically, patient is not overloaded but given state of illness and general baseline health she could easily become volume overloaded. - monitor I&O- received large volume of bowel prep and IV fluids yesterday - repeat CXR today (4) Acute kidney injury Code(s): N17.9 - ACUTE KIDNEY FAILURE, UNSPECIFIED Status: Acute Plan: Cr slowly trending down. Urine output improved. Likely prerenal in etiology. (5) Elevated LFTs Code(s): R79.89 - OTHER SPECIFIED ABNORMAL FINDINGS OF BLOOD CHEMISTRY Status : Acute Plan: Remain elevated since admission. RUQ US concerning for cholelithiais with common duct dilitation - will hold off antibiotics for now since she is afebrile and CBC is normal - low threshold for initiating empiric coverage. - GI recommended MRCP once patient is stabilized. No need for ERCP at this time. (6) CKD (chronic kidney disease) stage 3, GFR 30-59 ml/min Code(s): N18.3 - CHRONIC KIDNEY DISEASE, STAGE 3 (MODERATE) Status: Acute Plan: will monitor. (7) Physical deconditioning Code(s): R53.81 - OTHER MALAISE Status: Acute Plan: CM will be consulted for placement once patient begins to improve. <Cole Williamson - Last Filed: 05/26/17 07:22> Attending Addendum - Attending Addendum I personally evaluated the patient and discussed the management with Dr. Williamson I agree with the History, Examination, Assessment and Plan documented above with any addition or exceptions noted below. 82 yo female with multiple medical problems admitted for severe proximal colon constipation/impaction HD# 6 Remains on the vent for respiratory support due to fluid overload state secondary to HF. White out left lung this AM. ABG improved from yesterday. Dr. Clark to bronch for likely mucus plugging. Constipation: Has received 8L of bowel prep. BMs but not yet clear at this time. Abdomen soft and nondistended. GI following. CKD III: BUN/CR/GFR stable. Not much change overnight. Continue to monitor closely. Renaly dose all meds. rEFHF: Has now completed bowel prep and will now be able to start monitoring fluid status. Transaminitis: GI following. Cholithiasis, duct dilation and wall thickening noted on sono. Possibly related to the severe impaction of stool in proximal colon. After BMs on yesterday liver enzymes mildly improved. Will continue to trend and monitor. T bili elevated today. Will fraction out. Consider MRCP. Mixed anemia: Monitor closely. Stable. Fluid overloaded. Continue close follow up throughout the day. Rajesh <Ema Ervin - Last Filed: 05/26/17 12:40>
[2017-05-26 07:25] LABS: Mode SIMV.PSV
--- NOTE | 2017-05-26 09:40 | RAD ---
PORTABLE CHEST: HISTORY: Respiratory distress. COMPARISON: 05/24/17 exam. FINDINGS: Heart size was enlarged. There is increasing opacification of the left chest. This could be on the basis of mucus plugging. Endotracheal tube is present. The tip is approximately a centimeter abo ve the man. The NG tube is below the hemidiaphragm. IMPRESSION: Increasing opacification over the left chest which would suggest atelectasis possibly related to muc us plugging. POS: JULIETA
--- NOTE | 2017-05-26 09:42 | PRG ---
DATE OF SERVICE: 05/26/2017 Thirty minutes of critical care time. SUBJECTIVE: Ms. Escamilla remains intubated on mechanical ventilation. She is able to interact when sed ation is lightened. PHYSICAL EXAMINATION: VITAL SIGNS: On exam, temperature is 98.3, pulse 91, blood pressure 93/51, total intake for 24 hour s 6714/1130 out, most of the intake was through GoLYTELY. HEENT: Unremarkable. NECK: No JVD. LUNGS: Coarse rhonchi. CARDIAC: S1 and S2 regular. ABDOMEN: Softer. EXTREMITIES: She has edema in her arms. She has bruising over both arms. LABORATORY DATA AND IMAGING: White blood cell count 10, hemoglobin 7.2, hematocrit 22.4, platelet c ount 269, pH 7.42, pCO2 of 45, pO2 of 59, SIMV rate 12, tidal volume 450, PEEP 5, pressure support 1 0, FiO2 40%. Sodium 143, potassium 3.1, chloride 100, CO2 23, BUN 47, creatinine 2.1, and glucose 7 7. AST 154 and ALT 138. Chest x-ray is pending. ASSESSMENT: 1. Acute respiratory failure requiring mechanical ventilation - attempted weaning trial the patient this morning and she failed miserably 2. Renal insufficiency. 3. Severe constipation which is better. 4. Status post recent aortic valve replacement. 5. Elevated liver function tests. PLAN: She will have an x-ray today. She may end up needing some diuresis. Potassium will be repla madalyn. We will follow her through the weekend and try weaning again tomorrow.
[2017-05-26] MEDS: AMIODARONE HCL IVPB SCH ×4 (09:45→21:59)
[2017-05-26] MEDS: Potassium Chloride 40 MEQ, Admixture Fee 1 EACH in Sodium Chloride 0.45% 1,000 ML IV SCH ×2 (09:45→20:24)
[2017-05-26] MEDS: WATER IVPB SCH ×4 (09:45→21:59)
[2017-05-26] MEDS: DEXTROSE 5% IVPB SCH ×4 (09:45→21:59)
[2017-05-26] MEDS: Clopidogrel Bisulfate 75 MG TAB PO SCH (09:46)
[2017-05-26] MEDS: Bisacodyl 5 MG TAB PO SCH (09:46)
[2017-05-26] MEDS: Hydrocortisone Sod Succ/PF 100 mg/2 ml Vial IVP SCH ×2 (09:46→20:28)
[2017-05-26] MEDS: Docusate 100 MG CAP PO SCH (09:47)
[2017-05-26] MEDS: Lactinex Tablet PO SCH (09:47)
[2017-05-26] MEDS: Heparin 5,000 UNITS/ML VIAL SC SCH ×2 (09:48→20:26)
[2017-05-26] MEDS: Metoclopramide HCl 10 MG/2 ML VIAL IVP SCH (09:48)
--- NOTE | 2017-05-26 11:35 | OP ---
DATE OF PROCEDURE: 05/26/2017 PROCEDURE: Bronchoscopy. PREOPERATIVE DIAGNOSIS: Left lung collapse with hypoxemia. POSTOPERATIVE DIAGNOSIS: Extensive left lung mucus plugging. ANESTHESIA: She was on propofol during the procedure. DESCRIPTION OF PROCEDURE: Procedure was done on an emergent basis for hypoxemia. A 2.0 Olympus bro nchoscope was placed in the patient's endotracheal tube. There were copious secretions present in t he distal tracheostomy tube. This extended down the left lower lobe. It took some time to lavage a nd extensive mucus plug on the left side with normal saline and then aspirated the back of the [facility] hoscope. At times, this plug would get stuck at the bronchoscope and had to be pushed out with norm al saline. After about 15 minutes of lavaging, the left lung was clear. There was extensive suctio n trauma present on the left side. There were also some scant mucoid secretions present on the righ t, which were lavaged and removed. She tolerated the procedure well.
[2017-05-26 11:52] LABS: Bilirubin, Direct 0.8 mg/dL (0.1-0.3); Bilirubin, Total 1.3 mg/dL (0.2-1.2)
[2017-05-26] MEDS: Cefepime 1 GM in Sodium Chloride 0.9% 100 ML IVPB SCH (13:14)
[2017-05-26] MEDS: Acetylcysteine 20% 200 MG/ML 30 ML VIAL INH SCH ×3 (13:14→23:17)
--- NOTE | 2017-05-26 14:53 | EKG ---
Test Reason : Blood Pressure : / mmHG Vent. Rate : 076 BPM Atrial Rate : 076 BPM P-R Int : 164 ms QRS Dur : 152 ms QT Int : 458 ms P-R-T Axes : 084 -39 127 degrees QTc Int : 515 ms Normal sinus rhythm Left axis deviation Left bundle branch block Abnormal ECG Confirmed by BUFFY CHANEY D.O. ([id number]), subeditor REBEKA FARNSWORTH ([id number]) on 05/26/2017 2:53:03 PM Referred By: Confirmed By:BUFFY CHANEY D.O.
[2017-05-26] MEDS ORDERED: Docusate 100 MG CAP PO PRN (15:15)
[2017-05-26] MEDS ORDERED: Bisacodyl 5 MG TAB PO PRN (15:16)
--- NOTE | 2017-05-26 15:18 | PRG ---
DATE OF SERVICE: 05/26/2017 GI INPATIENT DAILY PROGRESS NOTE SUBJECTIVE: Ms. Escamilla had worsening hypoxia and chest x-ray this morning showed whiteout of the left lung field. She underwent bronchoscopy with findings of extensive mucous plugging on the left side with washout. She remains on the ventilator, continues to tolerate this well. Her second gallon o f GoLYTELY was finished this morning and bowel movements have become nearly clear. Abdomen is far l ess distended and she denies any abdominal pain. OBJECTIVE: VITAL SIGNS: Temperature 98.3, blood pressure 88/49, pulse 88, 96% oxygen saturation on ventilator. GENERAL: Intubated on ventilator. She is awake and alert and can answer questions in the affirmati ve and negative. HEART: Regular rate and rhythm. LUNGS: Bilateral vent sounds. ABDOMEN: Only mild distention, tympanitic to percussion. Bowel sounds present, soft and nontender to palpation. EXTREMITIES: No peripheral edema. LABORATORY STUDIES: Hemoglobin 7.2, WBC 10.4, platelets 269. Sodium 143, potassium 3.1, BUN 47, cr eatinine 2.10. Total bilirubin 1.3, direct bilirubin 0.8, alkaline phosphatase 188, AST 154, and AL T 138. ASSESSMENT AND PLAN: 1. Ileus, improving. 2. Constipation, improving. 3. Abdominal distention, improving. I would continue Movantik 12.5 mg daily as well as MiraLax 17 grams daily at this point. The lactulose can be drawn back to an as needed basis as well as Dulcola x given as needed as well. Hopefully, she will be able to be extubated soon. If she is extubated t omorrow, I could start her on a full liquid diet. If not, I could initiate tube feeds via the oroga stric tube tomorrow. 4. Elevated liver function tests, stable. 5. Cholelithiasis, asymptomatic. Note, LFTs continue to be elevated to the same degree without sym ptoms. Consider magnetic resonance cholangiopancreatography at some point for better visualization of the bile duct once she is clinically improved. Dr. Bright will be covering for GI this weekend.
[2017-05-27] MEDS: Cefepime 1 GM in Sodium Chloride 0.9% 100 ML IVPB SCH ×2 (01:45→12:24)
[2017-05-27 04:29] LABS: #Lymphocytes 0.6 thou/uL (1.20-3.40); #Monocytes 1.2 thou/uL (0.11-0.59); #Neutrophils 11.9 thou/uL (1.40-6.50); %Lymphocytes 4.6 % (21.0-51.0); %Monocytes 8.6 % (0.0-10.0); Hematocrit 20.7 % (36.0-47.0); Mean Platelet Volume 8.1 fL (7.4-10.4); Red Blood Cell (RBC) Count 2.36 mill/uL (4.20-5.40); White Blood Cell (WBC) Count 13.7 thou/uL (4.8-10.8)
[2017-05-27 04:47] LABS: ALT (SGPT) 314 U/L (8-55); AST (SGOT) 664 U/L (5-34); Alkaline Phosphatase 179 U/L (40-150); Anion Gap 20 mmol/L (10-20); BUN (Urea Nitrogen) 52 mg/dL (9.8-20.1); Bilirubin, Total 1.5 mg/dL (0.2-1.2); Calc. Creatinine Clearance 23 mL/min (70-130); Calcium 8.3 mg/dL (7.8-10.44); Carbon Dioxide 25 mmol/L (23-31); Chloride 100 mmol/L (98-107); Estimated GFR-MDRD 19; Globulin 2.8 g/dL (2.4-3.5); Magnesium 1.5 mg/dL (1.6-2.6); Phosphorus 4.4 mg/dL (2.3-4.7); Protein, Total 4.9 g/dL (6.0-8.3)
[2017-05-27] MEDS: Potassium Chloride 40 MEQ, Admixture Fee 1 EACH in Sodium Chloride 0.45% 1,000 ML IV SCH ×2 (05:41→16:51)
[2017-05-27] MEDS: Levothyroxine Sodium 100 MCG VIAL SLOW IVP SCH (06:07)
[2017-05-27 06:30] LABS: PTT 38.3 SEC (22.9-36.1); Prothrombin Time 16.1 SEC (12.0-14.7)
--- NOTE | 2017-05-27 06:42 | PDOC.FM ---
- Subjective Subjective: Patient is sedated and intubated. No signs of discomfort. Nurse said that she had an uneventful night. - Objective MAR Reviewed: Yes Vital Signs & Weight: Vital Signs (12 hours) Temp Pulse Resp Pulse Ox 05/27/17 06:00 18 05/27/17 04:00 99.0 F 16 05/27/17 02:43 86 17 97 05/27/17 02:00 19 05/27/17 00:00 98.9 F 16 05/26/17 22:11 84 30 H 99 05/26/17 22:00 21 H 05/26/17 20:00 98.7 F 94 16 98 Weight Admit Weight 67.222 kg Weight 80.5 kg Most Recent Monitor Data Heart Rate from ECG 86 NIBP 106/48 NIBP BP-Mean 67 Respiration from ECG 18 SpO2 100 I&O: 05/25/17 05/26/17 05/27/17 06:59 06:59 06:59 Intake Total 7726 6814 4532.5 Output Total 2940 1130 530 Balance 4786 5684 4002.5 Result Diagrams: 05/27/17 03:32 05/27/17 03:32 EKG Reviewed by me: Yes Radiology Reviewed by me: Yes <Jasen Navarro - Last Filed: 05/27/17 10:31> - Objective Vital Signs & Weight: Vital Signs (12 hours) Temp Pulse Pulse Resp BP BP Pulse Ox 05/27/17 10:00 22 H 05/27/17 08:15 98.5 F 88 18 119/51 L 05/27/17 08:01 98.3 F 05/27/17 08:00 15 05/27/17 06:44 87 106/48 L 05/27/17 06:42 86 15 91 L 05/27/17 06:00 18 05/27/17 04:00 99.0 F 16 05/27/17 02:43 86 17 97 05/27/17 02:00 19 05/27/17 00:00 98.9 F 16 Weight Admit Weight 67.222 kg Weight 80.5 kg Most Recent Monitor Data Heart Rate from ECG 87 NIBP 114/56 NIBP BP-Mean 87 Respiration from ECG 25 SpO2 93 I&O: 05/26/17 05/27/17 05/28/17 06:59 06:59 06:59 Intake Total 6814 4532.5 150 Output Total 1130 530 40 Balance 5684 4002.5 110 Result Diagrams: 05/27/17 03:32 05/27/17 03:32 <AlbaChina - Last Filed: 05/27/17 10:55> Phys Exam - Physical Examination Constitutional: NAD HEENT: PERRLA, moist MMs Neck: no nodes, no JVD, supple crackles bilaterally in lung bases, Cardiovascular: RRR, no significant murmur, no rub, gallop Gastrointestinal: soft, non-tender, no distention, positive bowel sounds edema in extremities and depended areas sedated during exam. Deviation from normal: easy bruising leading to brusing around patient. <Jasen Navarro - Last Filed: 05/27/17 10:31> Dx/Plan (1) Acute respiratory failure Code(s): J96.00 - ACUTE RESPIRATORY FAILURE, UNSP W HYPOXIA OR HYPERCAPNIA Status: Acute Qualifiers: Respiratory failure complication: hypoxia Qualified Code(s): J96.01 - Acute respiratory failure with hypoxia (2) Elevated LFTs Code(s): R79.89 - OTHER SPECIFIED ABNORMAL FINDINGS OF BLOOD CHEMISTRY Status : Acute (3) CHF exacerbation Code(s): I50.9 - HEART FAILURE, UNSPECIFIED Status: Suspected Qualifiers: Congestive heart failure type: unspecified congestive heart failure type Qualified Code(s): I50.9 - Heart failure, unspecified (4) Acute kidney injury Code(s): N17.9 - ACUTE KIDNEY FAILURE, UNSPECIFIED Status: Acute (5) Constipation Code(s): K59.00 - CONSTIPATION, UNSPECIFIED Status: Acute Qualifiers: Constipation type: slow transit constipation Qualified Code(s): K59.01 - Slow transit constipation (6) Physical deconditioning Code(s): R53.81 - OTHER MALAISE Status: Acute (7) CKD (chronic kidney disease) stage 3, GFR 30-59 ml/min Code(s): N18.3 - CHRONIC KIDNEY DISEASE, STAGE 3 (MODERATE) Status: Acute - Plan Plan: 82 yo female with multiple medical problems admitted for severe proximal colon constipation/impaction that caused respiratory failure HD# 7 #Acute Respiratory Failure- Remains on the vent for respiratory support due to fluid overload state secondary to HF. Yesterday, patient had significant mucous plugging that was resolved with bronch by Dr. Clark. Cefepime has been started for possible PNA. #Constipation: Has received 8L of bowel prep. Several BMS yesterday but none overnight. Abdomen soft and nondistended. significant improvement from this overall. GI following. Starting tube feedings today. #ORLY on CKD III: BUN/CR worsening. concomitant worsening of liver function points to overall poor perfusion. #rEFHF: Would like to diurese patient but her fluid status is worsening. Will discuss on rounds today and with Dr. Clark if we should ask nephro to get involved at this point. #Transaminitis: GI following. Cholithiasis, duct dilation and wall thickening noted on sono. Now LFTs are significantly worse. Will order LDH to evaluate for poor perfusion/shock liver. Will repeat RUQ US to evaluate for ductal dilation interval changes. #Mixed anemia: Monitor closely. Now below 7, will transfuse 2 units. Fluid overloaded, which is possibly why anemia is worsening. <Jasen Navarro - Last Filed: 05/27/17 10:31> Attending Addendum - Attending Addendum I personally evaluated the patient and discussed the management with Dr. Navarro. I agree with the History, Examination, Assessment and Plan documented above with any addition or exceptions noted below. We are transfusing 2 units PRBC's with lasix between the units for anemia. Follow post-transfusion h/h. The patient's LFT's are worsening. LDH is being checked. Dr. Navarro is repeating a RUQ and will coordinate with GI. Tube feeds are being started and central line is being placed by Dr. Williamson and Dr. Farris. <China Willis - Last Filed: 05/27/17 10:55>
[2017-05-27] MEDS: Acetylcysteine 20% 200 MG/ML 30 ML VIAL INH SCH ×3 (06:44→18:37)
[2017-05-27 07:13] LABS: Oxyhemoglobin 96.7 % (94.0-97.0); Sodium 139 mmol/L (135-148)
[2017-05-27 07:14] LABS: Mechanical Tidal Volume 450 ml; Mode SIMV.PSV; Modified Allen's Test POSITIVE; Pressure Support 15 cmH2O; Vent YES
--- NOTE | 2017-05-27 08:19 | PRG ---
DATE OF SERVICE: 05/27/2017 Thirty-five minutes critical care time. Ms. Escamilla remains intubated on mechanical ventilation. Her son is at the bedside. I spoke to him at length. PHYSICAL EXAMINATION: VITAL SIGNS: On exam her temperature is 99.0, pulse 89, blood pressure 123/50. 24 hour intake 4532 , output 530. HEENT: Unremarkable. NECK: No JVD. CHEST: Coarse rhonchi. CARDIOVASCULAR: S1 and S2 regular, 2/6 systolic murmur. ABDOMEN: Soft, no distention today, some bowel sounds present. EXTREMITIES: Edematous. LABORATORY DATA: Sodium 142, potassium 3.0, chloride 100, CO2 25, BUN 50, creatinine 2.4, glucose 8 0, AST 64, ALT 314, pH 7.40, pCO2 38, pO2 120. White blood cell count 13.7, hemoglobin 6.6, hematoc rit 20.7, platelet count 271. Chest x-ray shows resolves atelectasis in the left lung. ASSESSMENT: 1. Acute on chronic respiratory failure requiring mechanical ventilation. 2. Copious mucoid secretions in both lungs. 3. Renal insufficiency. 4. Elevated liver function tests, which are worse. 5. Anemia. 6. Severe constipation, which is better. 7. Recent aortic valve replacement. RECOMMENDATIONS: 1. She did not pass a spontaneous breathing trial today. Therefore, weaning is not practical. 2. Transfuse blood. 3. Initiate tube feeds. 4. GI is following the patient. I would be interested in any ideas they have regarding her LFTs. 5. Her renal function is somewhat worse, this may be a reflection of depleted intravascular volume. I will give her some albumin and see if that helps. 6. Continue hydrocortisone. 7. Continue Mucomyst. 8. Overall, prognosis is very poor.
[2017-05-27] MEDS: AMIODARONE HCL IVPB SCH ×4 (08:38→20:40)
[2017-05-27] MEDS: DEXTROSE 5% IVPB SCH ×4 (08:38→20:40)
[2017-05-27] MEDS: WATER IVPB SCH ×4 (08:38→20:40)
[2017-05-27] MEDS: Hydrocortisone Sod Succ/PF 100 mg/2 ml Vial IVP SCH ×2 (08:39→20:39)
[2017-05-27] MEDS: Polyethylene Glycol 3350 17 GM Packet PER TUBE SCH (08:39)
[2017-05-27] MEDS: Lactinex Tablet PO SCH (08:39)
[2017-05-27] MEDS: Clopidogrel Bisulfate 75 MG TAB PO SCH (08:39)
[2017-05-27] MEDS: Heparin 5,000 UNITS/ML VIAL SC SCH ×2 (08:39→20:40)
--- NOTE | 2017-05-27 09:00 | RAD ---
RADIOGRAPH CHEST 1 VIEW: Date: 05/27/17 Time: 0513 HOURS HISTORY: 82-year-old female in respiratory failure. COMPARISON: 05/26/17 at 0859 hours. FINDINGS: The previously dense consolidation of almost the entire left lung, except for relative sparing of th e left apex, has now significantly improved. Now, the left upper lobe is aerated. The left base hugo ins consolidated with obliteration of the left hemidiaphragm. Cardiomegaly. Metallic stent at root o f aorta. The patient is rotated to the left now. Endotracheal tube distal tip is now at the origin o f the right mainstem bronchus. Interval development of haziness at the right lung base, partially si lhouetting the right hemidiaphragm. Interstitial densities in the right upper lobe remain unchanged. IMPRESSION: 1. Interval improved aeration of the left upper lobe. 2. Left lower lobe remains consolidated. 3. Cardiomegaly remains. 4. Endotracheal tube distal tip is at the origin of the right mainstem bronchus in this particular patient position. 5. Interval mild worsening of aeration of the right base. [place] [] POS: JULIETA
--- NOTE | 2017-05-27 10:44 | PDOC.EVN ---
Event Note - Event Note Event Note: Attending Central Lien Placement See Resident physician dictated procedure note for details. I directly supervised the procedure. Right IJV CVC placed in the usual fashion without difficulty under ultrasound guidance. Chest xray confirms placement of catheter and absence of pneumothorax. Patient tolerated well.
[2017-05-27] MEDS ORDERED: Furosemide 40 MG/4 ML VIAL SLOW IVP SCH ×3 (11:00→15:45)
[2017-05-27] MEDS: Albumin 25% 25 GM/100 ML BOT IVPB SCH ×2 (12:02→17:08)
--- NOTE | 2017-05-27 12:13 | RAD ---
CHEST 1 VIEW: Date: 05/27/17 HISTORY: Line placement. COMPARISON: Chest 1 view from same date. FINDINGS: New right IJ central venous catheter is in place with tip at the cavoatrial junction. The endotrache al tip has been retracted approximately 2.0 cm. Remainder of findings is similar. IMPRESSION: Uncomplicated placement right IJ central venous catheter tip at the cavoatrial junction. POS: CET
--- NOTE | 2017-05-27 13:07 | PRG ---
DATE OF SERVICE: 05/27/2017 SUBJECTIVE: The patient is awake and alert, but on a ventilator. She denies any abdominal pain. A ccording to nursing personnel, she has not had any GI bleeding. OBJECTIVE: VITAL SIGNS: Pulse is 88, blood pressure 117/67, respiratory rate is 14, temperature is 98.5. CHEST: Clear. CARDIOVASCULAR: Regular rate and rhythm. ABDOMEN: Soft, nontender, without organomegaly. Bowel sounds are present. LABORATORY DATA: Shows a white blood cell count of 13.7, hemoglobin 6.6, hematocrit 20.7. PT 61, I NR 1.3. Chemistries: Potassium 3.0, BUN 52, creatinine 2.41, glucose 80, total bilirubin 1.5, AST 664, ALT 314, alkaline phosphatase 179, LDH 602, albumin 2.1. IMAGING DATA: Chest x-ray shows left lower lobe remains consolidated. Cardiomegaly remains endotra cheal tube is in place. Interval mild worsening of aeration in the right base. ASSESSMENT: 1. Elevated liver function tests - I think this is multifactorial, probably with some passive conge stion, pneumonia, etc. 2. Constipation - resolved. 3. Malnutrition. 4. Anemia. 5. Cholelithiasis. RECOMMENDATIONS: 1. Await gallbladder ultrasound results. 2. Begin tube feedings. 3. Agree with transfusion. 4. Proton-pump inhibitor. 5. Follow LFTs.
--- NOTE | 2017-05-27 13:10 | OP-2 ---
DATE OF PROCEDURE: 05/27/2017 RESIDENT: Cole Williamson M.D. ATTENDING PHYSICIAN: Jerad Farris M.D. PROCEDURE: Right internal jugular triple-lumen central line catheter placement with ultrasound reed levine. INDICATIONS: Loss of peripheral access and need for repetitive blood draws to secure vascular acces s. PROCEDURE IN DETAIL: Consent was obtained from the patient's son as the patient is sedated while on the ventilator. Risks, benefits, and alternatives were explained and son was in agreement with pro ceeding with the central line placement. A timeout was performed. The patient was prepped and drap ed in usual sterile fashion. Ultrasound was used to identify the right internal jugular vein and ca rotid artery. The right internal jugular vein was cannulated with good venous blood return under ul trasound guidance. Guidewire was easily passed through the cannulating needle up to the 20 cm cole. The needle was removed and the skin at the insertion site was nicked with an 11 blade. A dilator was slid over the guidewire and the hub pushed down to the skin. Dilator was removed and the triple -lumen central catheter was placed over the wire to the 15 cm cole. The triple-lumen catheter had b een flushed with sterile saline prior to placement over the needle. Spring loaded caps were fixed t o each end of the catheter. All three lumen were shown to have adequate blood return and were flush ed and locked with sterile saline. Biopatch was placed over the catheter insertion site. The centr al line was secured with 2 simple interrupted 3-0 nylon sutures. The patient tolerated procedure we ll. Chest x-ray showed the tip of the catheter just superior to the right atrium. The patient tole rated the procedure well. Official read on the x-ray is still pending at this time. The patient's vital signs are normal after procedure. No pneumothorax was seen. Dr. Farris was present for the entirety of the procedure.
--- NOTE | 2017-05-27 13:21 | ULT ---
ULTRASOUND ABDOMEN LIMITED: (RIGHT UPPER QUADRANT) Date: 05/27/17 Time: 1112 hours HISTORY: 82-year-old female with increasing elevation of liver function tests. FINDINGS: This study is limited because of body habitus, patient's inability to suspend respirations, and vent ilator preventing lateral decubitus positioning. Gallbladder: Contracted around multiple gallstones. The majority of the gallbladder is obscured by s hadowing from the gallstones. There may be mural thickening, but this is uncertain. Common duct: Dilated to 10 mm, as was the case on the 05/21/17 ultrasound. Liver: Parenchymal echogenicity is within normal limits. There is intrahepatic biliary ductal dilati on. Pancreas: Difficult to distinguish pancreatic tissue from surrounding intra-abdominal fat. No signif icant dilation of pancreatic duct identified. Right kidney: Poorly visualized. No hydronephrosis. No interval change overall. IMPRESSION: 1. Positive for cholelithiasis. 2. Mild to moderate dilation of the biliary tree, raising the possibility of partial obstruction of the common bile duct. CAROLINA Peacock POS: JULIETA
[2017-05-27] MEDS: Propofol 1,000 MG/100 ML VIAL IV PRN (14:50)
[2017-05-28] MEDS: Albumin 25% 25 GM/100 ML BOT IVPB SCH ×4 (00:33→17:13)
[2017-05-28] MEDS: Cefepime 1 GM in Sodium Chloride 0.9% 100 ML IVPB SCH ×2 (01:31→12:13)
[2017-05-28] MEDS: Potassium Chloride 40 MEQ, Admixture Fee 1 EACH in Sodium Chloride 0.45% 1,000 ML IV SCH ×3 (01:44→20:56)
[2017-05-28] MEDS: Propofol 1,000 MG/100 ML VIAL IV PRN ×2 (01:51→16:17)
[2017-05-28] MEDS: Acetylcysteine 20% 200 MG/ML 30 ML VIAL INH SCH ×4 (02:18→18:29)
[2017-05-28 04:33] LABS: #Lymphocytes 0.6 thou/uL (1.20-3.40); #Neutrophils 11.5 thou/uL (1.40-6.50); %Basophils 0.1 % (0.0-1.0); %Eosinophils 0.2 % (0.0-10.0); %Lymphocytes 4.3 % (21.0-51.0); %Monocytes 7.3 % (0.0-10.0); Hematocrit 24.1 % (36.0-47.0); Mean Platelet Volume 8.7 fL (7.4-10.4); Red Blood Cell (RBC) Count 2.75 mill/uL (4.20-5.40)
[2017-05-28 05:00] LABS: ALT (SGPT) 242 U/L (8-55); AST (SGOT) 299 U/L (5-34); Alkaline Phosphatase 249 U/L (40-150); Anion Gap 19 mmol/L (10-20); BUN (Urea Nitrogen) 54 mg/dL (9.8-20.1); Bilirubin, Direct 2.8 mg/dL (0.1-0.3); Bilirubin, Total 3.3 mg/dL (0.2-1.2); Calc. Creatinine Clearance 20 mL/min (70-130); Calcium 8.9 mg/dL (7.8-10.44); Carbon Dioxide 24 mmol/L (23-31); Chloride 99 mmol/L (98-107); Estimated GFR-MDRD 16; Globulin 2.6 g/dL (2.4-3.5); Magnesium 1.8 mg/dL (1.6-2.6); Phosphorus 3.7 mg/dL (2.3-4.7); Protein, Total 5.6 g/dL (6.0-8.3)
[2017-05-28] MEDS: Levothyroxine Sodium 100 MCG VIAL SLOW IVP SCH (05:55)
[2017-05-28 07:30] LABS: Oxyhemoglobin 92.6 % (94.0-97.0); Sodium 138 mmol/L (135-148)
[2017-05-28 07:31] LABS: Mechanical Tidal Volume 450 ml; Mode SIMV.PSV; Modified Allen's Test POSITIVE; Pressure Support 10 cmH2O; Vent YES
--- NOTE | 2017-05-28 08:58 | PRG ---
DATE OF SERVICE: 05/28/2017 Thirty-five minutes critical care time. SUBJECTIVE: The patient is awake and can follow some commands. Her son is in the room; I met with him for a considerable amount of time and discussed the situation. PHYSICAL EXAMINATION: VITAL SIGNS: On exam, temperature is 98.4, pulse 86, blood pressure 131/77, 24-hour intake 4461, ou tput 432. HEENT: Unremarkable. NECK: No JVD. LUNGS: Slightly diminished breath sounds in the left base compared to right. CARDIAC: S1 and S2 regular. ABDOMEN: Slightly distended, but softer than at the time of admission. EXTREMITIES: Edematous. LABORATORY DATA: PH of 7.37, pCO2 of 41, pO2 of 73 on SIMV rate 8, tidal volume 450, PEEP 5, pressu re support 10, FiO2 40%. White blood cell count 13, hemoglobin 8.2, hematocrit 24.1, platelet count 231. Sodium 130, potassium 3.8, chloride 99, CO2 of 24, BUN 54, creatinine 2.7, glucose 150. AST 299, ALT 242, alkaline phosphatase 249. Gallbladder ultrasound demonstrated cholelithiasis, questio n of dilatation of biliary tree. Chest x-ray demonstrates she is turned to the left. It appears sh e still has a clear left lung. ASSESSMENT: 1. Acute on chronic respiratory failure, requiring mechanical ventilation. 2. Copious mucoid secretions in both lungs. 3. Renal insufficiency, which is slightly worse. 4. Transaminitis. 5. Anemia -- better after transfusion. 6. Severe constipation, which is better. 7. Recent aortic valve replacement. PLAN: 1. She failed a spontaneous breathing trial. We have increased her pressure support so that she ca n get used to breathing on her own. 2. Continue low-dose tube feeds. 3. Consider surgical consult for possible eventual cholecystectomy. 4. Dr. Cordova has seen her in the past, and he will be back tomorrow. The patient's son wishes to co fermin to be very aggressive with her care, although I think her prognosis for recovery is quite poo r.
[2017-05-28] MEDS: DEXTROSE 5% IVPB SCH ×4 (09:30→21:30)
[2017-05-28] MEDS: Clopidogrel Bisulfate 75 MG TAB PO SCH (09:30)
[2017-05-28] MEDS: WATER IVPB SCH ×4 (09:30→21:30)
[2017-05-28] MEDS: AMIODARONE HCL IVPB SCH ×4 (09:30→21:30)
[2017-05-28] MEDS: Hydrocortisone Sod Succ/PF 100 mg/2 ml Vial IVP SCH ×2 (09:31→21:30)
[2017-05-28] MEDS: Lactinex Tablet PO SCH (09:31)
[2017-05-28] MEDS: Heparin 5,000 UNITS/ML VIAL SC SCH ×2 (09:31→21:30)
[2017-05-28] MEDS: Polyethylene Glycol 3350 17 GM Packet PER TUBE SCH (09:31)
--- NOTE | 2017-05-28 09:37 | PDOC.FM ---
- Subjective Subjective: Patient had relatively uneventful night. She had several bowel movements. She is intermittedly awake when her sedation becomes late and she can follow commands. - Objective MAR Reviewed: Yes Vital Signs & Weight: Vital Signs (12 hours) Temp Pulse Resp BP Pulse Ox 05/28/17 09:00 98.7 F 05/28/17 08:00 98.7 F 84 21 H 96 05/28/17 06:03 84 144/77 H 05/28/17 06:02 84 23 H 96 05/28/17 06:00 22 H 05/28/17 04:00 98.4 F 22 H 05/28/17 02:18 84 20 98 05/28/17 02:00 21 H 05/28/17 00:00 98.8 F 20 05/27/17 22:14 83 05/27/17 22:13 83 20 99 05/27/17 22:00 23 H Weight Admit Weight 67.222 kg Weight 82.7 kg Most Recent Monitor Data Heart Rate from ECG 84 NIBP 148/78 NIBP BP-Mean 94 Respiration from ECG 12 SpO2 98 I&O: 05/27/17 05/28/17 05/29/17 06:59 06:59 06:59 Intake Total 4532.5 4461 Output Total 530 432 100 Balance 4002.5 4029 -100 Result Diagrams: 05/28/17 03:50 05/28/17 03:50 EKG Reviewed by me: Yes Radiology Reviewed by me: Yes <Jasen Navarro - Last Filed: 05/28/17 09:40> - Objective Vital Signs & Weight: Vital Signs (12 hours) Temp Pulse Resp BP Pulse Ox 05/28/17 14:18 81 115/75 05/28/17 14:16 82 25 H 98 05/28/17 12:00 98.8 F 25 H 05/28/17 10:19 83 150/77 H 05/28/17 10:18 83 21 H 96 05/28/17 10:00 27 H 05/28/17 09:00 98.7 F 05/28/17 08:00 98.7 F 84 21 H 96 05/28/17 06:03 84 144/77 H 05/28/17 06:02 84 23 H 96 05/28/17 06:00 22 H 05/28/17 04:00 98.4 F 22 H Weight Admit Weight 67.222 kg Weight 82.7 kg Most Recent Monitor Data Heart Rate from ECG 90 NIBP 142/84 NIBP BP-Mean 100 Respiration from ECG 24 SpO2 99 I&O: 05/27/17 05/28/17 05/29/17 06:59 06:59 06:59 Intake Total 4532.5 4461 200 Output Total 530 432 215 Balance 4002.5 4029 -15 Result Diagrams: 05/28/17 03:50 05/28/17 03:50 <China Willis - Last Filed: 05/28/17 14:48> Phys Exam - Physical Examination Constitutional: NAD (intubated and sedated during exam.) HEENT: PERRLA Neck: no nodes, no JVD, supple (no crepitus felt) loud rhonchi bilaterally Cardiovascular: RRR, no significant murmur, no rub, gallop Gastrointestinal: soft, non-tender, no distention, positive bowel sounds Musculoskeletal: no edema, pulses present Neurological: non-focal, moves all 4 limbs follows commands when awake Psychiatric: normal affect, A&O x 3 Skin: no rash <Jasen Navarro - Last Filed: 05/28/17 09:40> Dx/Plan (1) Acute respiratory failure Code(s): J96.00 - ACUTE RESPIRATORY FAILURE, UNSP W HYPOXIA OR HYPERCAPNIA Status: Acute Qualifiers: Respiratory failure complication: hypoxia Qualified Code(s): J96.01 - Acute respiratory failure with hypoxia (2) Elevated LFTs Code(s): R79.89 - OTHER SPECIFIED ABNORMAL FINDINGS OF BLOOD CHEMISTRY Status : Acute (3) CHF exacerbation Code(s): I50.9 - HEART FAILURE, UNSPECIFIED Status: Suspected Qualifiers: Congestive heart failure type: unspecified congestive heart failure type Qualified Code(s): I50.9 - Heart failure, unspecified (4) Acute kidney injury Code(s): N17.9 - ACUTE KIDNEY FAILURE, UNSPECIFIED Status: Acute (5) Constipation Code(s): K59.00 - CONSTIPATION, UNSPECIFIED Status: Acute Qualifiers: Constipation type: slow transit constipation Qualified Code(s): K59.01 - Slow transit constipation (6) Physical deconditioning Code(s): R53.81 - OTHER MALAISE Status: Acute (7) CKD (chronic kidney disease) stage 3, GFR 30-59 ml/min Code(s): N18.3 - CHRONIC KIDNEY DISEASE, STAGE 3 (MODERATE) Status: Acute (8) Choledocholithiasis Code(s): K80.50 - CALCULUS OF BILE DUCT W/O CHOLANGITIS OR CHOLECYST W/O OBST Status: Acute - Plan Plan: 82 yo female with multiple medical problems admitted for severe proximal colon constipation/impaction that caused respiratory failure HD# 8 #Acute Respiratory Failure- Remains on the vent for respiratory support due to fluid overload state secondary to HF. CXR looks worse today with increasing diffuse interstitial markings. Cefepime has been started for possible PNA. Will follow pulm recs. #Constipation: Has received 8L of bowel prep. Several BMS yesterday but none overnight. Abdomen soft and nondistended. significant improvement from this overall. GI following. Starting tube feedings today. #ORLY on CKD III: BUN/CR worsening. concomitant worsening of liver function points to overall poor perfusion. Did not responde to lasix yesterday. Will consult nephro today. #rEFHF: Would like to diurese patient but her fluid status is worsening. Did not respond to lasix x2. output was poor. Will discuss case with nephro. #suspected choledocolithiaisis with partial common bile duct obstruction- US suggests partial obstruction and this would fit with worsening bilirubin, especially direct bilirubin. It is unclear if patient is a candidate for interventions such as surgery or ERCP. will defer to GI's judgement on this. #Transaminitis: See above suspected obstruction. LFTs are better today, with elevated LDH, suggesting possible poor perfusion causes. #Mixed anemia: Improved with 2 units. Will monitor Overall prognosis is poor. Will continue to dialogue with family about code status and goals of care. <Jasen Navarro - Last Filed: 05/28/17 09:40> Attending Addendum - Attending Addendum I personally evaluated the patient and discussed the management with Dr. Navarro. I agree with the History, Examination, Assessment and Plan documented above with any addition or exceptions noted below. The patient is more alert and following commands. Vent management per pulmonolgy. Patient's renal failure continues to worsen. She has seen nephrology for this in the past and will consult them today. Transaminases have improved though RUQ u/s showed dilation of biliary tree. Will f/u GI recs for this. Tube feeds are being started. movantik will be held due to patient having diarrhea. Continue IV cefepime. Anemia is improved after transfusion. Prognosis remains poor. <China Willis - Last Filed: 05/28/17 14:48>
--- NOTE | 2017-05-28 10:13 | RAD ---
RADIOGRAPH CHEST 1 VIEW: Date: 05/28/17 Time: 0522 HOURS HISTORY: 82-year-old female in respiratory failure. COMPARISON: 05/27/17 at 1018 hours. FINDINGS: Endotracheal tube remains at lower trachea. Severe cardiomegaly, pulmonary vascular congestion, and diffuse bilateral pulmonary densities, at least some of which probably represents pulmonary edema. P robable bilateral pleural effusions. No major interval change. IMPRESSION: 1. Congestive heart failure. 2. Intubation. 3. No major interval change. CAROLINA [] POS: JULIETA
[2017-05-28 11:01] LABS: Bilirubin Negative (Negative); Blood, Urine Moderate (Negative); Glucose, Urine (Dipstick) Negative (Negative); Ketone, Urine Negative (Negative); Nitrite Negative (Negative); Protein, Urine (Dipstick) 30 mg/dL (Neg-Trace); Urobilinogen 0.2 mg/dL (0.2-1.0)
--- NOTE | 2017-05-28 11:03 | PRG ---
DATE OF SERVICE: 05/28/2017 SUBJECTIVE: The patient denies any abdominal pain. She is having a large amount of bowel movements . She is tolerating tube feedings very well with no residuals. OBJECTIVE: VITAL SIGNS: Temperature is 98.7, blood pressure 150/77, pulse of 83 and respiratory rate 21. CHEST: Clear. CARDIOVASCULAR: Regular rate and rhythm. ABDOMEN: Soft and nontender, without organomegaly or masses. LABORATORY DATA: Significant for total bilirubin of 3.3, AST 299, ALT of 242, alkaline phosphatase 249 and albumin 3.0. White blood cell count of 13.0, hemoglobin of 8.2 and hematocrit of 24.1. IMAGING DATA: Patient underwent an abdominal ultrasound yesterday and this showed cholelithiasis, m ild to moderate dilatation of the biliary tree, raising the possibility of partial obstruction of th e common bile duct. ASSESSMENT: 1. Obstipation - resolved. 2. Abnormal liver function tests - the patient had a gallbladder ultrasound showing some dilatation of the biliary tree. 3. Malnutrition. 4. Anemia - status post transfusion. RECOMMENDATIONS: 1. At this point, we will repeat the LFTs tomorrow. If these are worsening, then we will consider ERCP. 2. Hold tube feedings at midnight.
[2017-05-28 11:17] LABS: Bacteria/HPF 1+ HPF (None Seen); Hyaline Casts/LPF 0-3 HYALINE CAST LPF (0-3 Hyaline); Renal Epithelial None Seen HPF (0-3); Transitional Epithelial NONE SEEN HPF (0-3); Yeast-All Forms 3+ HPF (None Seen)
--- NOTE | 2017-05-28 18:05 | CON ---
DATE OF CONSULTATION: 05/28/2017 RENAL MEDICINE HISTORY OF PRESENT ILLNESS: Ms. Escamilla is an 82-year-old white female who was initially admitted for severe constipation and associated general weakness. Over the time her hospitalization has become u nstable. She has gone through an acute respiratory failure where she was intubated. Of interest, she has known multiple medical problems, which included aortic stenosis, hypertension, and coronary artery disease. We are now being consulted for acute kidney injury on top of her chronic renal fail ure. REVIEW OF SYSTEMS: Not obtainable since the patient is intubated on ventilator support. MEDICATIONS: The patient is currently on albumin 25 g IV q.6, amiodarone drip, cefepime 1 gram IV q .12, Plavix 75 mg once a day, fentanyl as needed, heparin 5000 units subcutaneous b.i.d., Solu-Kely f 25 mg IV b.i.d., Synthroid 25 mcg daily. Status post furosemide - currently on hold. PAST MEDICAL HISTORY: Includes the following, 1. Hypertension. 2. AFIB, status post CHF, peripheral vascular disease, coronary artery disease, valvular heart dise ase, status post AFIB. 3. Hypothyroidism. PAST SURGICAL HISTORY: 1. Status post cardiac catheterization. 2. Status post coronary stent placement. 3. Status post transcatheter aortic valve replacement. SOCIAL HISTORY: The patient does not smoke. No alcohol intake. Status post blood transfusion. Li ves with and her son. No IV drug abuse. ALLERGIES: None. TRAUMA: None. IMMUNIZATIONS: Up to date. HOSPITALIZATIONS: Please see past medical history. FAMILY HISTORY: No family history of ESRD. PHYSICAL EXAMINATION: VITAL SIGNS: Blood pressure is currently noted at 142/84, heart rate 90, respiratory rate 24, pulse ox 99%. GENERAL: Noted to be awake, intubated on ventilator support, not in distress. SKIN: Decreased turgor. HEENT: The patient has slightly pale conjunctivae, anicteric sclerae. NECK: No neck mass, no carotid bruits, no JVD. CHEST: No deformities. LUNGS: Decreased breath sounds, no wheezing. HEART: Normal sinus rhythm. Grade 2/6 systolic murmur, no gallops or rubs. ABDOMEN: Globular, soft, nontender, no masses. EXTREMITIES: Trace edema. LABORATORY DATA AND IMAGIN. Laboratories of 05/28/2017, white count 13, hemoglobin 8.2. Sodium 138, potassium 3.8, chloride 99, carbon dioxide 24, BUN 54, creatinine 2.76, glucose is 150, magnesium 1.8. AST is 299, ALT 242 . Albumin 3.0. 2. On 05/28/2017, chest x-ray shows evidence of congestive heart failure with no major changes. 3. Urinalysis of 05/28/2017, specific gravity 1.015, urine creatinine 40, urine sodium is 41. ASSESSMENT AND PLAN: Acute kidney injury on top of her chronic renal failure. Patient has had cynthia ral liters of fluid given over the last several days of her hospitalization. In addition, she has b een started on salt poor albumin 25 g IV q.6. It is possible that this patient may have already an overt acute tubular necrosis especially with decreasing urine output in spite of aggressive volume r epletion. Current management is supportive. For the moment, agree with current management. Hold o ff diuretics. Currently on colloid infusion. At the present time, no indication for an emergent he modialysis with this patient. We will continue to observe. Please note that the patient had an abdominal ultrasound. There is a question cari of multinodular dilatation of the biliary tree. Right kidney was said to have been poorly visualized, but there was no evidence of hydronephrosis. Overall, prognosis remains guarded with this patient. Thank you for the consult. We will continue to follow.
[2017-05-28] MEDS ORDERED: FLU VACC TS2017-18 (>65YR) 0.5 ML SYRINGE IM ONE (21:00)
[2017-05-29] MEDS: Cefepime 1 GM in Sodium Chloride 0.9% 100 ML IVPB SCH ×2 (00:04→13:46)
[2017-05-29] MEDS: Propofol 1,000 MG/100 ML VIAL IV PRN ×2 (00:07→13:00)
[2017-05-29] MEDS: Acetylcysteine 20% 200 MG/ML 30 ML VIAL INH SCH ×5 (02:46→23:19)
[2017-05-29 04:26] LABS: #Lymphocytes 0.5 thou/uL (1.20-3.40); #Monocytes 0.8 thou/uL (0.11-0.59); #Neutrophils 10.2 thou/uL (1.40-6.50); %Eosinophils 0.1 % (0.0-10.0); %Lymphocytes 4.7 % (21.0-51.0); Mean Platelet Volume 8.9 fL (7.4-10.4); Red Blood Cell (RBC) Count 2.86 mill/uL (4.20-5.40); White Blood Cell (WBC) Count 11.6 thou/uL (4.8-10.8)
[2017-05-29 04:56] LABS: ALT (SGPT) 167 U/L (8-55); AST (SGOT) 134 U/L (5-34); Alkaline Phosphatase 218 U/L (40-150); Anion Gap 17 mmol/L (10-20); BUN (Urea Nitrogen) 62 mg/dL (9.8-20.1); Bilirubin, Total 3.6 mg/dL (0.2-1.2); Calc. Creatinine Clearance 21 mL/min (70-130); Calcium 8.9 mg/dL (7.8-10.44); Carbon Dioxide 24 mmol/L (23-31); Chloride 101 mmol/L (98-107); Estimated GFR-MDRD 17; Globulin 2.2 g/dL (2.4-3.5); Magnesium 1.8 mg/dL (1.6-2.6); Phosphorus 3.1 mg/dL (2.3-4.7); Protein, Total 5.3 g/dL (6.0-8.3)
[2017-05-29] MEDS: Potassium Chloride 40 MEQ, Admixture Fee 1 EACH in Sodium Chloride 0.45% 1,000 ML IV SCH ×2 (05:01→18:11)
[2017-05-29] MEDS: Levothyroxine Sodium 100 MCG VIAL SLOW IVP SCH (05:54)
[2017-05-29 05:56] LABS: Bilirubin, Direct 2.8 mg/dL (0.1-0.3)
--- NOTE | 2017-05-29 06:54 | PDOC.FM ---
- Subjective Subjective: CC: No provided. patient sedated. HPI: nursing reports no events overnight. has had several small bowel movements. No family at bedside. - Objective MAR Reviewed: Yes Vital Signs & Weight: Vital Signs (12 hours) Temp Pulse Resp Pulse Ox 05/29/17 06:00 12 05/29/17 04:00 97.4 F L 14 05/29/17 02:41 59 L 15 100 05/29/17 02:00 13 05/29/17 00:00 97.8 F 18 05/28/17 22:36 64 05/28/17 22:35 55 L 16 05/28/17 22:00 15 05/28/17 20:00 97.7 F 78 15 100 Weight Admit Weight 67.222 kg Weight 83.552 kg Most Recent Monitor Data Heart Rate from ECG 59 NIBP 96/61 NIBP BP-Mean 68 Respiration from ECG 13 SpO2 96 I&O: 05/27/17 05/28/17 05/29/17 06:59 06:59 06:59 Intake Total 4532.5 4461 3186 Output Total 530 432 742 Balance 4002.5 4029 2444 Result Diagrams: 05/29/17 04:15 05/29/17 04:15 EKG Reviewed by me: Yes (SRrate in 50s to 60s ) Radiology Reviewed by me: Yes (fluid overload. interval improvement. ) <Cole Williamson - Last Filed: 05/29/17 06:53> - Objective Vital Signs & Weight: Vital Signs (12 hours) Temp Pulse Resp Pulse Ox 05/29/17 10:11 73 05/29/17 10:00 20 05/29/17 08:06 75 05/29/17 08:00 98.2 F 75 16 98 05/29/17 07:37 74 05/29/17 06:00 12 05/29/17 04:00 97.4 F L 14 05/29/17 02:41 59 L 15 100 05/29/17 02:00 13 Weight Admit Weight 67.222 kg Weight 83.552 kg Most Recent Monitor Data Heart Rate from ECG 61 NIBP 125/65 NIBP BP-Mean 71 Respiration from ECG 24 SpO2 97 I&O: 05/28/17 05/29/17 05/30/17 06:59 06:59 06:59 Intake Total 4461 3186 100 Output Total 432 742 165 Balance 4029 2444 -65 Result Diagrams: 05/29/17 04:15 05/29/17 04:15 <Kirby Soto - Last Filed: 05/29/17 12:23> Phys Exam - Physical Examination Constitutional: NAD HEENT: moist MMs Neck: no nodes right IJ central line in place coarse breath sounds diffusely Cardiovascular: RRR, no significant murmur Gastrointestinal: soft, non-tender, positive bowel sounds mild distention. Musculoskeletal: edema present (1+ to level of knee bilaterally and to elbow bilaterally ) cannot assess due to sedation <TeriCole - Last Filed: 05/29/17 06:53> Dx/Plan (1) Acute respiratory failure Code(s): J96.00 - ACUTE RESPIRATORY FAILURE, UNSP W HYPOXIA OR HYPERCAPNIA Status: Acute Qualifiers: Respiratory failure complication: hypoxia Qualified Code(s): J96.01 - Acute respiratory failure with hypoxia Plan: Intubated on 05/24. Bronchoscopy on 05/26 for mucous plugging. Now fluid overloaded. - vent management per pulmonology - vent settings relatively unchanged since Monday. - interval improvement on CXR today. (2) CHF exacerbation Code(s): I50.9 - HEART FAILURE, UNSPECIFIED Status: Suspected Qualifiers: Congestive heart failure type: unspecified congestive heart failure type Qualified Code(s): I50.9 - Heart failure, unspecified Plan: TTE showed normal EF with minimal valve dysfunction. Clinically appears overloaded. -nephrology gave salt poor albumin to attempt to improve intravascular perfusion. (3) Acute kidney injury Code(s): N17.9 - ACUTE KIDNEY FAILURE, UNSPECIFIED Status: Acute Plan: Cr worsened over the weekend. Urine output trended down over the weekend - Nephrology following. (4) Constipation Code(s): K59.00 - CONSTIPATION, UNSPECIFIED Status: Acute Qualifiers: Constipation type: slow transit constipation Qualified Code(s): K59.01 - Slow transit constipation Plan: GI following. Making small bowel movements (5) Urinary tract infection Status: Acute Qualifiers: Urinary tract infection type: acute cystitis Hematuria presence: without hematuria Qualified Code(s): N30.00 - Acute cystitis without hematuria Plan: Cefepime day 3. - continue abx. - cultures not sent. (6) Choledocholithiasis Code(s): K80.50 - CALCULUS OF BILE DUCT W/O CHOLANGITIS OR CHOLECYST W/O OBST Status: Acute Plan: LFTs tripled on Monday but have trended down. Still 1.5 to 2 times previous baseline. - GI plans ERCP today for further evaluation. (7) CKD (chronic kidney disease) stage 3, GFR 30-59 ml/min Code(s): N18.3 - CHRONIC KIDNEY DISEASE, STAGE 3 (MODERATE) Status: Acute Plan: will monitor. (8) Physical deconditioning Code(s): R53.81 - OTHER MALAISE Status: Acute Plan: CM will be consulted for placement once patient begins to improve. - Plan Plan: Overall prognosis is guarded. <Cole Williamson - Last Filed: 05/29/17 06:53> - Plan Plan: Seen and examined with Dr. Williamson. I agree with his A&P except as below. Severe sepsis 2/2 presumed choledocholithiasis vs UTI -vanc/cefepime, currently no coverage for anaerobes and will consider changes in light of suspected biliary pathology -Mgmt choledocholithiasis per GI - ERCP or if not stable enough consider c-tube Acute respiratory failure -multifactorial 2/2 intrinsic + HAP + ORLY with volume overload -lung protective strategy, IBW 47.8. Lung protective strategy with permissive hypercapnea -mucomyst -s/p bronch HAP -MRSA + pseudomonas + citro by bronch -will consider changing cefepime to zosyn to cover anaerobes ORLY -presumably 2/2 sepsis, renal following Multiple UP wounds 2/2 presumed senile purpura and fragility -WC following DVT ppx/GI ppx Agree with prognosis. Discussed with family in detail. 1 hour cc time. <Kirby Soto - Last Filed: 05/29/17 12:23>
[2017-05-29 07:48] LABS: Oxyhemoglobin 94.5 % (94.0-97.0); Sodium 135 mmol/L (135-148)
[2017-05-29 07:49] LABS: Mechanical Tidal Volume 450 ml; Mode SIMV; Pressure Support 17 cmH2O; Vent YES
[2017-05-29] MEDS ORDERED: Iothalamate Meglumine 60% 50 ML VIAL FS ONE (08:32)
[2017-05-29] MEDS: Hydrocortisone Sod Succ/PF 100 mg/2 ml Vial IVP SCH ×2 (09:04→20:11)
[2017-05-29] MEDS: DEXTROSE 5% IVPB SCH ×4 (09:04→20:12)
[2017-05-29] MEDS: Clopidogrel Bisulfate 75 MG TAB PO SCH (09:04)
[2017-05-29] MEDS: AMIODARONE HCL IVPB SCH ×4 (09:04→20:12)
[2017-05-29] MEDS: WATER IVPB SCH ×4 (09:04→20:12)
[2017-05-29] MEDS: Polyethylene Glycol 3350 17 GM Packet PER TUBE SCH (09:05)
[2017-05-29] MEDS: Lactinex Tablet PO SCH (09:05)
--- NOTE | 2017-05-29 09:12 | PRG ---
DATE OF SERVICE: 05/29/2017 The patient is an 82-year-old female who is intubated on the vent. She is clearly not weanable. Narciso beverly is apparently going to go for an ERCP today because of a stone in the ER duct. PHYSICAL EXAMINATION: VITAL SIGNS: Blood pressure is 100/80, sats are 92%, respirations 18, afebrile. I's \T\ O's have b een 4465 in, 432 out. CHEST: Extensive rhonchi and crackles, left greater than right. CARDIAC: Normal S1-S2. No gallops. ABDOMEN: Soft. No masses. LABORATORY: White count 11,000, H\T\H 8 and 25, platelet count 182, pO2 77, PCO2 40%, 3, at a rate of 40%, 450 tidal, creatinine is 2, BUN 62. Albumin is low at 3.1. Bronchial washing shows MRSA, Pseudomonas. IMPRESSION: 1. Respiratory failure. 2. Left lung atelectasis. 3. Severe deconditioning. 4. Congestive heart failure. 5. Recent aortic valve surgery in [place]. PLAN: She is not weanable at this stage. I have added Zyvox to her Maxipime. Continue neb treatme nts, steroids. We will follow. One-half hour critical care time.
--- NOTE | 2017-05-29 09:26 | PRG ---
DATE OF SERVICE: 05/29/2017 RENAL MEDICINE SUBJECTIVE: Ms. Escamilla is an 19-year-old white female who was seen for an acute kidney injury seconda ry to possible acute tubular necrosis. Empiric volume repletion has been done with this patient. I n addition, currently on salt poor albumin infusion. Her creatinine when I saw her yesterday was 2. 76. Today, it is 2.72. There may be some stabilization with renal dysfunction. Presently, the pat yash is clinically presumed to be septic. She has also an acute liver dysfunction. This morning I spoke with the son. I did discuss about th e possibility of dialysis with her should the renal function further worsen and they would like to p roceed with it if it is necessary. OBJECTIVE: VITAL SIGNS: Blood pressure is 98/59, heart rate 75, respiratory rate 12, pulse ox 98%. GENERAL: Patient is sedated, intubated on ventilator support. SKIN: Adequate turgor. HEENT: Slightly pale conjunctivae, anicteric sclerae. NECK: No neck mass, no carotid bruits, no JVD. CHEST: No deformities. LUNGS: Decreased breath sounds. HEART: Normal sinus rhythm. No murmur, no gallops, no rubs. ABDOMEN: Globular, soft, nontender. EXTREMITIES: Positive for edema. MEDICATIONS: Medications of 05/29/2017 was reviewed. LABORATORY DATA: Laboratories of 05/29/2017; sodium 138, potassium 3.9, chloride 101, carbon dioxid e 24, BUN 62, creatinine 2.72, glucose 138, phosphorus 3.1, magnesium 1.8, calcium 8.9, AST 134, ALT 167, and albumin 3.1. ASSESSMENT AND PLAN: 1. Acute kidney injury - secondary to presumed acute tubular necrosis. The patient is still curren tly having nonoliguric acute tubular necrosis. The last 24-hour urine output was 742 mL per minute. Continue supportive care. Continue to optimize hemodynamics. No indication for any dialytic inte rvention at the present time. 2. Acute liver dysfunction - GI following. ? of endoscopic retrograde cholangiopancreatography dep ending on the liver studies. 3. Septic syndrome - continue supportive care on IV antibiotics. 4. Acute respiratory failure, Pulmonary following. Currently intubated, on ventilator support. Discussed case at length with the patient's son.
--- NOTE | 2017-05-29 09:38 | RAD ---
CHEST 1 VIEW: Date: 05/29/17 HISTORY: Ventilated. COMPARISON: Chest 1 view dated 05/28/17. FINDINGS: Patient is intubated. Endotracheal tube tip is near the man. Central venous catheter tip is simil ar. Lungs are severely hypoinflated with bilateral effusions, as well as perihilar opacities. No large p neumothorax is appreciated. Enteric tube is in place with tip poorly seen, although likely below americo phragm and out of field of view. Heart size is enlarged. Dense left lower lobe consolidation. IMPRESSION: No significant change in radiographic appearance of the chest. POS: [facility]
[2017-05-29] MEDS: Heparin 5,000 UNITS/ML VIAL SC SCH ×2 (10:36→20:11)
[2017-05-29] MEDS: Linezolid 600 MG in Premix Bag 1 BAG IVPB SCH ×2 (11:16→20:12)
--- NOTE | 2017-05-29 14:17 | PRG ---
DATE OF SERVICE: 05/29/2017 SUBJECTIVE: Ms. Escamilla has remained on the ventilator over the weekend, tube feeds going well, tolera ting them fine. No recurrence of significant abdominal distention, having bowel movements okay. He r LFTs trended up and peaked 2 days ago. Repeat ultrasound continued to show CBD dilation to 1 cm. Yesterday, the patient evidently had a significant bradycardic episode resulting in brief asystole and received few chest compressions. OBJECTIVE: VITAL SIGNS: Pulse 75, blood pressure 125/65, temperature 98.2, 98% oxygen saturation on ventilator . GENERAL: Critically ill, intubated, sedated. HEART: Regular rate and rhythm. LUNGS: Bilateral vent sounds. ABDOMEN: Nondistended. Bowel sounds hypoactive, but present, soft, nontender to palpation. EXTREMITIES: A 1+ bilateral pretibial edema. LABORATORY STUDIES: WBC 11.6, hemoglobin 8.1, platelets 182. INR 1.3. Sodium 138, potassium 3.9, BUN 62, creatinine 2.72, total bilirubin up to 3.6, direct bilirubin 2.8, AST down to 134, ALT down to 167, alkaline phosphatase 218, albumin 3.1. ASSESSMENT AND PLAN: 1. Constipation, resolved. 2. Abnormal liver function tests, improving past 2 days. 3. Common bile duct dilation. 4. Cholelithiasis. 5. Acute respiratory failure. Given the imaging findings and the pattern of LFT elevation, I do th ink it is probable that the patient has some degree of choledocholithiasis. However, she certainly does not have complete biliary obstruction. Furthermore, I still do not think that her biliary issu es are really driving her presentation for her overall degree of illness. In the absence of any sig ns of cholangitis, and with this recent episode of asystole, the patient would be very high risk for any endoscopic intervention including ERCP. I would not plan to proceed with ERCP unless the patie nt were to develop signs of cholangitis. If the patient otherwise clinically recovers, ERCP could b e considered later this admission, but again she is very high risk for procedure like that at this p oint in time. GI will continue to follow. Please call with questions or concerns.
[2017-05-29] MEDS ORDERED: Pantoprazole 40 MG VIAL IVP SCH (21:00)
--- NOTE | 2017-05-29 23:10 | RAD ---
SEMI UPRIGHT PORTABLE CHEST ONE VIEW: History: 82-year-old female with worsening difficulty breathing. FINDINGS: There is rotation to the left. NG tube, endotracheal tube, and right central lines are in place. The re is some bilateral vascular congestion with some interstitial edema bilaterally. There is cardiome mary. There is some aortic valve replacement changes. Appearance appears stable from earlier 05-29-17 study and appears to be improved when compared to a 05-28-17 study. IMPRESSION: Stable cardiomegaly, vascular congestion, and interstitial edema. No significant new process. POS: [facility]
--- NOTE | 2017-05-29 23:11 | RAD ---
ABDOMEN ONE VIEW: FINDINGS: Supine portable view of the abdomen demonstrates some nonspecific gas within the colon and small bow el. There is motion artifact. Technique is somewhat suboptimal because of portable technique. There appears to be less gaseous distention of the colon and small bowel when compared to the prior 9-26-1 7 study. IMPRESSION: Some gas in the colon and small bowel but less gaseous distention than on the prior study. POS: [facility]
[2017-05-30] MEDS: Cefepime 1 GM in Sodium Chloride 0.9% 100 ML IVPB SCH ×2 (01:45→12:34)
[2017-05-30] MEDS: Propofol 1,000 MG/100 ML VIAL IV PRN (04:38)
[2017-05-30 04:48] LABS: #Lymphocytes 0.3 thou/uL (1.20-3.40); #Monocytes 0.9 thou/uL (0.11-0.59); #Neutrophils 9.2 thou/uL (1.40-6.50); %Basophils 0.2 % (0.0-1.0); %Eosinophils 0.2 % (0.0-10.0); %Lymphocytes 2.8 % (21.0-51.0); %Monocytes 8.2 % (0.0-10.0); Hematocrit 25.3 % (36.0-47.0); Mean Platelet Volume 9.7 fL (7.4-10.4); Red Blood Cell (RBC) Count 2.88 mill/uL (4.20-5.40); White Blood Cell (WBC) Count 10.4 thou/uL (4.8-10.8)
[2017-05-30 05:06] LABS: ALT (SGPT) 141 U/L (8-55); AST (SGOT) 95 U/L (5-34); Alkaline Phosphatase 204 U/L (40-150); Anion Gap 15 mmol/L (10-20); BUN (Urea Nitrogen) 61 mg/dL (9.8-20.1); Bilirubin, Total 2.9 mg/dL (0.2-1.2); Calc. Creatinine Clearance 22 mL/min (70-130); Calcium 8.7 mg/dL (7.8-10.44); Carbon Dioxide 23 mmol/L (23-31); Chloride 101 mmol/L (98-107); Estimated GFR-MDRD 17; Globulin 2.3 g/dL (2.4-3.5); Magnesium 1.8 mg/dL (1.6-2.6); Phosphorus 2.9 mg/dL (2.3-4.7)
[2017-05-30] MEDS: Potassium Chloride 40 MEQ, Admixture Fee 1 EACH in Sodium Chloride 0.45% 1,000 ML IV SCH ×2 (06:50→18:10)
[2017-05-30] MEDS: Acetylcysteine 20% 200 MG/ML 30 ML VIAL INH SCH (07:10)
[2017-05-30 07:32] LABS: Oxyhemoglobin 97.3 % (94.0-97.0)
[2017-05-30 07:35] LABS: Vent YES
[2017-05-30 07:36] LABS: Mechanical Tidal Volume 450 ml; Mode SIMV; Pressure Support 17 cmH2O
[2017-05-30] MEDS: Levothyroxine Sodium 100 MCG VIAL SLOW IVP SCH (08:05)
--- NOTE | 2017-05-30 08:42 | RAD ---
AP VIEW OF THE CHEST: INDICATION: Intubation. COMPARISON: Prior exam dated 05/29/17. FINDINGS/IMPRESSION: The ET tube, right central venous catheter, and gastric catheter are unchanged. Cardiomegaly, pulmo nary vascular congestion, and central edema pattern are similar. No pneumothorax is evident. Blachly us structures are similar. Aortic valvular graft is similar. POS: [facility]
--- NOTE | 2017-05-30 08:47 | PRG ---
DATE OF SERVICE: 05/30/2017 She is awake, alert, responsive, on the vent. She is sedated. PHYSICAL EXAMINATION: VITAL SIGNS: Pulse 71, blood pressure 99/57, sats are 91%. She is not assisting much on the vent. I's and O's are 3186 in, 742 out. CHEST: Extensive rhonchi, left greater than right. CARDIAC: Normal S1-S2. No gallops. ABDOMEN: Soft. No masses. LABORATORY DATA: White count 10,000, H\T\H 9 and 28, platelet count is normal. PO2 was 249, pCO2 4 4.33 and 450 tidal volume, 40% FiO2, rate of 12, BUN and creatinine are 61 and 2.3, somewhat better. IMPRESSION: 1. Respiratory failure. 2. Congestive heart failure. 3. Pneumonia. 4. Retained secretions. 5. Severe deconditioning. 6. Recent aortic valve replacement. 7. Ejection fraction is considered normal, but she has diastolic dysfunction. PLAN: Continue nutrition decrease sedation. She is still not weanable because they are repeating a bronchoscopy, lavage the lungs, terazosin, Maxipime will follow. One-half hour critical care time.
[2017-05-30] MEDS ORDERED: Furosemide 100 MG/10 ML VIAL SLOW IVP SCH (09:00)
--- NOTE | 2017-05-30 09:07 | PDOC.FM ---
- Subjective Subjective: CC: Denies Pain HPI: Patient receiving sedation vacation during exam. Responds to commands. Answers yes/no questions. Nurse reports episode of symptomatic bradycardia in the 30s overnight. - Objective MAR Reviewed: Yes Vital Signs & Weight: Vital Signs (12 hours) Temp Pulse Resp Pulse Ox 05/30/17 08:00 98.4 F 17 05/30/17 07:14 75 05/30/17 06:00 14 05/30/17 04:00 98.2 F 20 05/30/17 02:42 52 L 14 99 05/30/17 02:00 16 05/30/17 00:00 98.1 F 17 05/29/17 22:17 75 19 99 05/29/17 22:00 17 Weight Admit Weight 67.222 kg Weight 84.731 kg Most Recent Monitor Data Heart Rate from ECG 72 NIBP 96/60 NIBP BP-Mean 70 Respiration from ECG 17 SpO2 95 I&O: 05/29/17 05/30/17 05/31/17 06:59 06:59 06:59 Intake Total 3186 3000.4 Output Total 742 860 60 Balance 2444 2140.4 -60 Result Diagrams: 05/30/17 04:30 05/30/17 04:30 Radiology Reviewed by me: Yes (Stable CXR) <Cole Williamson - Last Filed: 05/30/17 09:06> - Objective Vital Signs & Weight: Vital Signs (12 hours) Temp Pulse Pulse Pulse Resp BP BP 05/30/17 16:00 98.0 F 22 H 05/30/17 15:50 05/30/17 15:02 73 05/30/17 14:00 21 H 05/30/17 13:07 71 05/30/17 12:00 98.3 F 22 H 05/30/17 11:50 72 72 114/65 112/70 05/30/17 10:24 71 05/30/17 10:00 17 05/30/17 08:00 98.4 F 17 05/30/17 07:40 98.4 F 71 20 05/30/17 07:14 75 05/30/17 06:00 14 Pulse Ox Pulse Ox Pulse Ox 05/30/17 16:00 05/30/17 15:50 98 05/30/17 15:02 05/30/17 14:00 05/30/17 13:07 05/30/17 12:00 05/30/17 11:50 99 100 05/30/17 10:24 05/30/17 10:00 05/30/17 08:00 05/30/17 07:40 100 05/30/17 07:14 05/30/17 06:00 Weight Admit Weight 67.222 kg Weight 84.731 kg Most Recent Monitor Data Heart Rate from ECG 77 NIBP 119/70 NIBP BP-Mean 81 Respiration from ECG 22 SpO2 96 I&O: 05/29/17 05/30/17 05/31/17 06:59 06:59 06:59 Intake Total 3186 3000.4 1040 Output Total 742 860 865 Balance 2444 2140.4 175 Result Diagrams: 05/30/17 04:30 05/30/17 04:30 <Kirby Soto - Last Filed: 05/30/17 17:29> Phys Exam - Physical Examination Constitutional: NAD HEENT: moist MMs, sclera anicteric ET tube at 21 cm Neck: no nodes, no JVD Right IJ central line in place. Respiratory: wheezing present diffuse wheezing and rhonchi no crepetus Cardiovascular: no significant murmur bradycardia normal rhythm Gastrointestinal: soft, non-tender LUQ distention Musculoskeletal: edema present (1+ in upper legs/sacrum ) Neurological: moves all 4 limbs Skin: cap refill <2 seconds Deviation from normal: unchanged skin tears. <Cole Williamson - Last Filed: 05/30/17 09:06> Dx/Plan (1) Acute respiratory failure Code(s): J96.00 - ACUTE RESPIRATORY FAILURE, UNSP W HYPOXIA OR HYPERCAPNIA Status: Acute Qualifiers: Respiratory failure complication: hypoxia Qualified Code(s): J96.01 - Acute respiratory failure with hypoxia Plan: Intubated on 05/24. Bronchoscopy on 05/26 for mucous plugging. Now fluid overloaded. - vent management per pulmonology - vent settings relatively unchanged since Monday. - unchanged CXR today. - Pulm plans for bronch tomorrow. - Cefepime day 5, linezolid day 2 (2) CHF exacerbation Code(s): I50.9 - HEART FAILURE, UNSPECIFIED Status: Suspected Qualifiers: Congestive heart failure type: unspecified congestive heart failure type Qualified Code(s): I50.9 - Heart failure, unspecified Plan: TTE showed normal EF with minimal valve dysfunction. Clinically appears overloaded. -nephrology gave salt poor albumin to attempt to improve intravascular perfusion. - will consider repeat echo if no improvement or change in kidney function to evaluate for cardiorenal syndrome. (3) Acute kidney injury Code(s): N17.9 - ACUTE KIDNEY FAILURE, UNSPECIFIED Status: Acute Plan: creatinine improved slightly today. urine output improving - Nephrology feels this is ATN. no need for HD at this time. - monitor urine output. - renally dose medications. (4) Constipation Code(s): K59.00 - CONSTIPATION, UNSPECIFIED Status: Acute Qualifiers: Constipation type: slow transit constipation Qualified Code(s): K59.01 - Slow transit constipation Plan: GI following. Making small bowel movements - LUQ distention worsening. KUB shows improvement - start simethicone. - give 1 gram magnesium IVPB today since low - will consider increasing synthroid since TSH was higher end of normal. (5) Urinary tract infection Status: Acute Qualifiers: Urinary tract infection type: acute cystitis Hematuria presence: without hematuria Qualified Code(s): N30.00 - Acute cystitis without hematuria Plan: Cefepime day 4. - continue abx. - cultures not sent. - Start renally dose fluconazole for 2 weeks. (6) Choledocholithiasis Code(s): K80.50 - CALCULUS OF BILE DUCT W/O CHOLANGITIS OR CHOLECYST W/O OBST Status: Acute Plan: LFTs still trending down. GI plans to wait for ERCP. Continue cefepime and linezolid (7) CKD (chronic kidney disease) stage 3, GFR 30-59 ml/min Code(s): N18.3 - CHRONIC KIDNEY DISEASE, STAGE 3 (MODERATE) Status: Acute Plan: will monitor. (8) Physical deconditioning Code(s): R53.81 - OTHER MALAISE Status: Acute Plan: CM will be consulted for placement once patient begins to improve. <Cole Williamson - Last Filed: 05/30/17 09:06> - Plan Plan: Seen and examined with Dr. Williamson. I agree with his A&P as written with the following addendum. Afebrile Downtrending LFTs Improved UOP, still marginal. Continue zyvox/cefepime for presumed vap, contract precautions for MRSA Diuresis per renal, hopefully with good response and will help with pulmonary status Lung protective ventilation, see previous note. Pulm reported will rebronch soon. Asymptomatic funguria. Send cx. No indication for treatment currently. <Kirby Soto - Last Filed: 05/30/17 17:29>
--- NOTE | 2017-05-30 09:14 | PRG ---
DATE OF SERVICE: 05/30/2017 SUBJECTIVE: Ms. Escamilla is an 82-year-old white female who was admitted for abdominal distention/gener alized malaise and we were initially consulted for her acute kidney injury. Working diagnosis is th e possibility of a superimposed acute tubular necrosis. Currently on supportive management. On lucy t poor albumin. The patient has also been followed by GI due to the distended abdomen and elevated liver function tests. Please note the liver function tests slowly been improving over the last few days. ERCP is being placed on hold for the moment due to the high comorbid problems with this patie nt. She also went into acute respiratory failure and currently is intubated on ventilator support. No a cute events noted. She is still diuresing. PHYSICAL EXAMINATION: VITAL SIGNS: Blood pressure 104/60, heart rate 60, respiratory rate 17, O2 sats 96, temperature 98. 4. GENERAL: The patient is lethargic, arousable on ventilator support. HEENT: Slightly pale conjunctivae, anicteric sclerae. NECK: No neck mass, no carotid bruit, no JVD. Please note she is intubated. LUNGS: Decreased breath sounds. HEART: Normal sinus rhythm. No murmur, no gallops or rubs. ABDOMEN: Distended. Globular, soft, decreased bowel sounds. EXTREMITIES: Positive for edema. MEDICATIONS: 05/30/2017 - Reviewed. LABORATORY: 05/30/2017 - White count 10.4, hemoglobin 8.3, hematocrit 25.3. Sodium 135, potassium 4.4, chloride 101, carbon dioxide 23, BUN 61, creatinine 2.63, glucose 134, calcium 8.7, phosphorus 2.9, magnesium 1.8, albumin 2.7. ASSESSMENT AND PLAN: 1. Acute kidney injury - consider the possibility of a superimposed acute tubular necrosis. Stabil izing renal function. The patient has salt poor albumin in the last few days. The stabilization of the renal function. I do not see any indication for any emergent hemodialysis. In addition, I rev iewed the last 24 hour urine output with this patient and she made about 860 mL of fluid. Her total intake is noted at 3 liters. For the moment, I agree with current management. P.r.n. Lasix as nee ded. My bias is to give a 1 time dose of Lasix at 80 mg IV due to the weight gain. I will probably extend her salt poor albumin for another 3 days. 2. Sepsis - on intravenous antibiotics. 3. Acute respiratory failure, currently intubated and ventilator support. Chest x-ray shows still congestive heart failure. We will give a one-time dose of Lasix 80 mg IV today.
[2017-05-30] MEDS: Albumin 25% 25 GM/100 ML BOT IVPB SCH ×3 (09:19→20:11)
[2017-05-30] MEDS: Polyethylene Glycol 3350 17 GM Packet PER TUBE SCH (09:20)
[2017-05-30] MEDS: Heparin 5,000 UNITS/ML VIAL SC SCH ×2 (09:20→20:11)
[2017-05-30] MEDS: Lactinex Tablet PO SCH (09:20)
[2017-05-30] MEDS: Clopidogrel Bisulfate 75 MG TAB PO SCH (09:20)
[2017-05-30] MEDS ORDERED: Fluconazole 100 MG TAB PO SCH (09:30)
[2017-05-30] MEDS: Linezolid 600 MG in Premix Bag 1 BAG IVPB SCH ×2 (09:30→20:11)
[2017-05-30] MEDS: Pantoprazole 40 MG GRANULES PACKET PER TUBE SCH (20:11)
[2017-05-31] MEDS: Cefepime 1 GM in Sodium Chloride 0.9% 100 ML IVPB SCH ×3 (00:10→23:52)
[2017-05-31] MEDS: Albumin 25% 25 GM/100 ML BOT IVPB SCH ×4 (03:45→20:32)
[2017-05-31] MEDS: Potassium Chloride 40 MEQ, Admixture Fee 1 EACH in Sodium Chloride 0.45% 1,000 ML IV SCH (04:39)
[2017-05-31 05:21] LABS: #Lymphocytes 0.2 thou/uL (1.20-3.40); #Monocytes 0.3 thou/uL (0.11-0.59); #Neutrophils 5.3 thou/uL (1.40-6.50); %Eosinophils 0.3 % (0.0-10.0); %Lymphocytes 3.9 % (21.0-51.0); %Monocytes 4.9 % (0.0-10.0); Hematocrit 23.7 % (36.0-47.0); Mean Platelet Volume 9.9 fL (7.4-10.4); Red Blood Cell (RBC) Count 2.67 mill/uL (4.20-5.40); White Blood Cell (WBC) Count 5.8 thou/uL (4.8-10.8)
[2017-05-31 05:45] LABS: ALT (SGPT) 112 U/L (8-55); AST (SGOT) 78 U/L (5-34); Alkaline Phosphatase 189 U/L (40-150); Anion Gap 15 mmol/L (10-20); BUN (Urea Nitrogen) 66 mg/dL (9.8-20.1); Bilirubin, Total 2.4 mg/dL (0.2-1.2); Calc. Creatinine Clearance 23 mL/min (70-130); Calcium 9.3 mg/dL (7.8-10.44); Carbon Dioxide 23 mmol/L (23-31); Chloride 100 mmol/L (98-107); Estimated GFR-MDRD 18; Magnesium 1.7 mg/dL (1.6-2.6); Phosphorus 3.2 mg/dL (2.3-4.7); Protein, Total 5.6 g/dL (6.0-8.3)
[2017-05-31] MEDS: Levothyroxine Sodium 100 MCG VIAL SLOW IVP SCH (06:36)
[2017-05-31 06:59] LABS: Oxyhemoglobin 95.3 % (94.0-97.0); Sodium 132 mmol/L (135-148)
[2017-05-31 07:00] LABS: Mechanical Tidal Volume 450 ml; Modified Allen's Test POSITIVE; Pressure Support 17 cmH2O; Vent YES
[2017-05-31] MEDS ORDERED: Magnesium 2 GM/NS 0.9% 100 ML 2 GM in Premix Bag 1 BAG IVPB SCH (07:00)
[2017-05-31 07:01] LABS: Mode SIMV.PSV
--- NOTE | 2017-05-31 07:41 | RAD ---
AP VIEW OF CHEST: Date: 05/31/17 INDICATION: Intubation. COMPARISON: Prior exam dated 05/30/17. FINDINGS: Cardiomegaly and pulmonary vascular congestion persist. There is worsening central edema. There is i ncreasing small left and tiny right pleural effusions. No pneumothorax is evident. Patient remains i ntubated with gastric catheter and right IJ central venous catheter. IMPRESSION: Worsening central edema pattern and bilateral small pleural effusions. POS: [facility]
[2017-05-31] MEDS ORDERED: FLU VACC TS2017-18 (>65YR) 0.5 ML SYRINGE IM ONE (09:00)
[2017-05-31] MEDS ORDERED: Fluconazole 100 MG TAB PO SCH ×2 (09:00)
--- NOTE | 2017-05-31 09:04 | PDOC.FM ---
- Subjective Subjective: CC: intubated, cannot speak HPI: Patient receiving sedation vacation during exam. follows commands appropriately. Family not present at bedside during exam. - Objective MAR Reviewed: Yes Vital Signs & Weight: Vital Signs (12 hours) Temp Pulse Resp BP Pulse Ox 05/31/17 06:29 76 126/77 05/31/17 06:28 76 24 H 99 05/31/17 06:00 19 05/31/17 04:00 98 F 18 05/31/17 02:33 75 20 100 05/31/17 02:00 19 05/31/17 00:00 98.3 F 17 05/30/17 22:00 22 H 05/30/17 21:43 74 16 95 Weight Admit Weight 67.222 kg Weight 85.366 kg Most Recent Monitor Data Heart Rate from ECG 76 NIBP 115/66 NIBP BP-Mean 83 Respiration from ECG 18 SpO2 100 I&O: 05/30/17 05/31/17 06/01/17 06:59 06:59 06:59 Intake Total 3000.4 4196 Output Total 860 2004 Balance 2140.4 2191 Result Diagrams: 05/31/17 04:30 05/31/17 04:30 Radiology Reviewed by me: Yes (patient turned during exam. mild worsening) <Cole Williamson - Last Filed: 05/31/17 09:02> - Objective Vital Signs & Weight: Vital Signs (12 hours) Temp Pulse Resp BP Pulse Ox 05/31/17 10:39 78 25 H 96 05/31/17 08:00 98.4 F 19 05/31/17 06:29 76 126/77 05/31/17 06:28 76 24 H 99 05/31/17 06:00 19 05/31/17 04:00 98 F 18 05/31/17 02:33 75 20 100 05/31/17 02:00 19 05/31/17 00:00 98.3 F 17 Weight Admit Weight 67.222 kg Weight 85.366 kg Most Recent Monitor Data Heart Rate from ECG 68 NIBP 114/68 NIBP BP-Mean 83 Respiration from ECG 19 SpO2 100 I&O: 05/30/17 05/31/17 06/01/17 06:59 06:59 06:59 Intake Total 3000.4 4196 100 Output Total 860 2004 Balance 2140.4 2191 -115 Result Diagrams: 05/31/17 04:30 05/31/17 04:30 <Kirby Soto - Last Filed: 05/31/17 10:45> Phys Exam - Physical Examination Constitutional: NAD HEENT: moist MMs, sclera anicteric Respiratory: no wheezing improved breath sounds. less coarse than yesterday Cardiovascular: RRR, no significant murmur Gastrointestinal: soft, non-tender mild distention. improved from yesterday. Musculoskeletal: edema present 1+ in lower legs, thigh, and scarum. Neurological: non-focal, moves all 4 limbs Skin: no rash Deviation from normal: unchanged skin tears. <Cole Williamson W - Last Filed: 05/31/17 09:02> Dx/Plan (1) Acute respiratory failure Code(s): J96.00 - ACUTE RESPIRATORY FAILURE, UNSP W HYPOXIA OR HYPERCAPNIA Status: Acute Qualifiers: Respiratory failure complication: hypoxia Qualified Code(s): J96.01 - Acute respiratory failure with hypoxia Plan: Intubated on 05/24. Bronchoscopy on 05/26 for mucous plugging. Now fluid overloaded. - vent management per pulmonology - vent settings relatively unchanged since yesterday. - Mild worsening on CXR - Awaiting recommendations from pulmonology - Cefepime day 6, linezolid day 3 (2) CHF exacerbation Code(s): I50.9 - HEART FAILURE, UNSPECIFIED Status: Suspected Qualifiers: Congestive heart failure type: unspecified congestive heart failure type Qualified Code(s): I50.9 - Heart failure, unspecified Plan: TTE showed normal EF with minimal valve dysfunction. Clinically appears overloaded. -nephrology giving salt poor albumin to attempt to improve intravascular perfusion. - will consider repeat echo if no improvement or change in kidney function to evaluate for cardiorenal syndrome. (3) Acute kidney injury Code(s): N17.9 - ACUTE KIDNEY FAILURE, UNSPECIFIED Status: Acute Plan: creatinine improved slightly today. urine output improving significantly with lasix overnight. - Nephrology feels this is ATN. no need for HD at this time. - monitor urine output. - renally dose medications. (4) Constipation Code(s): K59.00 - CONSTIPATION, UNSPECIFIED Status: Acute Qualifiers: Constipation type: slow transit constipation Qualified Code(s): K59.01 - Slow transit constipation Plan: GI following. Making small bowel movements - LUQ distention improved. KUB shows improvement - decreased bowel movements overnight. will schedule lactulose - replacing magnesium (5) Urinary tract infection Status: Acute Qualifiers: Urinary tract infection type: acute cystitis Hematuria presence: without hematuria Qualified Code(s): N30.00 - Acute cystitis without hematuria Plan: Cefepime day 6. - continue abx. - cultures sent yesterday. - Attending stopped fluconazole. will monitor for now. (6) Choledocholithiasis Code(s): K80.50 - CALCULUS OF BILE DUCT W/O CHOLANGITIS OR CHOLECYST W/O OBST Status: Acute Plan: LFTs still trending down. GI plans to wait for ERCP. Continue cefepime and linezolid (7) CKD (chronic kidney disease) stage 3, GFR 30-59 ml/min Code(s): N18.3 - CHRONIC KIDNEY DISEASE, STAGE 3 (MODERATE) Status: Acute Plan: will monitor. (8) Physical deconditioning Code(s): R53.81 - OTHER MALAISE Status: Acute Plan: CM will be consulted for placement once patient begins to improve. <Cole Williamson - Last Filed: 05/31/17 09:02> - Plan Plan: Seen and examined with Dr. Pablo. Menjivar portions of the history and physical exam repeated. I agree with their assessment and plan with the following addendum. VAP. Plan 7-10 day course ARDS 2/2 above: lung protective strategy. Wheezing: nebs PRN Choledocholithiasis with improving LFTs: monitor ORLY 2/2 above: per renal. albumin + lasix DVT/gi ppx ordered. <Kirby Soto - Last Filed: 05/31/17 10:45>
[2017-05-31] MEDS: Polyethylene Glycol 3350 17 GM Packet PER TUBE SCH (09:15)
[2017-05-31] MEDS: Clopidogrel Bisulfate 75 MG TAB PO SCH (09:15)
[2017-05-31] MEDS: Linezolid 600 MG in Premix Bag 1 BAG IVPB SCH ×2 (09:15→20:31)
[2017-05-31] MEDS ORDERED: Furosemide 100 MG/10 ML VIAL SLOW IVP SCH (09:15)
[2017-05-31] MEDS: Lactinex Tablet PO SCH (09:16)
[2017-05-31] MEDS: Heparin 5,000 UNITS/ML VIAL SC SCH ×2 (09:16→20:32)
--- NOTE | 2017-05-31 09:30 | PRG ---
DATE OF SERVICE: 05/31/2017 SUBJECTIVE: Ms. Escamilla is an 82-year-old white female being seen by the Renal Service for acute kidne y injury. Acute kidney injury is secondary to presumed ischemic acute tubular necrosis. Renal func tion has been stable for the last several days. She was seen yesterday and we decided to challenge her with IV Lasix. She improved her urine output and she made about 2 liters in the last 24 hours, which is an improvement from the average 700-800 mL. She is still in some degree of volume overlo ad based on the last chest x-ray. There is no indication for any dialytic intervention with this pa tient. PHYSICAL EXAMINATION: VITAL SIGNS: Blood pressure is 115/66, heart rate 76, respiratory rate 18, pulse ox 100%. GENERAL: The patient is arousable, intubated on ventilator support. SKIN: Adequate turgor. HEENT: Slightly pale conjunctivae, anicteric sclerae. NECK: No neck mass, no carotid bruits, no JVD. CHEST: No deformities. LUNGS: Decreased breath sounds. HEART: Normal sinus rhythm. No murmur, no gallops or rubs. ABDOMEN: Globular, soft, nontender. EXTREMITIES: Positive for edema. MEDICATIONS: 05/31/2017 - Reviewed. LABORATORY: 05/31/2017 - White count 5.8, hemoglobin 7.7, platelet count 183,000. Sodium 133, pota ssium 4.8, chloride 100, carbon dioxide 23, BUN 66, creatinine 2.53, glucose 145, magnesium 1.7, tianna sphorus 3.2, calcium 9.3, AST 78, ALT 112. ASSESSMENT AND PLAN: 1. Acute kidney injury-- secondary to presumed acute tubular necrosis, stable renal function. Crea tinine is noted at 2.53. She continues to be diuresing. We will give another dose of Lasix 80 mg I V x1 dose. She is tolerating the current p.r.n. diuretic regimen. No indication for any dialytic i ntervention. 2. Anemia; p.r.n. blood transfusion. 3. Acute respiratory failure. Continue supportive care. Last x-ray shows increased lung markings. In addition, the repeat 05/31/2017 chest x-ray shows worsening central edema. Lasix 80 mg IV x1 d ose will be given again. Try to diurese this patient. 4. Acute respiratory failure, currently intubated. Supportive care. Overall, I agree with current management.
--- NOTE | 2017-05-31 11:12 | PRG ---
DATE OF SERVICE: 05/31/2017 She is intubated on the vent. PHYSICAL EXAMINATION: VITAL SIGNS: Sats are 96, respirations 25, pulse 78, blood pressure 114/68. I's \T\ O's have been 4196 in, 2005 out. CHEST: Chest revealed extensive rhonchi and crackles. CARDIAC: Sinus tachycardia. ABDOMEN: Soft. NEUROLOGIC: Awake, alert, responsive, moves all extremities. LABORATORY: White count of 5.8, H\T\H 7 and 23, platelet count is 183, pO2 is 90, pCO2 39, pH 7.36, rate of 12, 450, 40%. Creatinine is 2.5, stable. IMPRESSION: 1. Multiorgan failure. 2. Respiratory failure. 3. Status post transcatheter aortic valve replacement. 4. Congestive heart failure. 5. Pneumonia. 6. Methicillin-resistant Staphylococcus aureus. 7. Severe deconditioning. 8. Renal failure. PLAN: She is clearly not weanable, day 11 on the vent. Will make a decision in the next day or two regarding trach and a PEG. In the meantime, Zyvox, Maxipime, continue steroids. I will follow. One-half hour of critical care time.
[2017-05-31] MEDS: Fluconazole 100 MG TAB PO SCH (13:32)
--- NOTE | 2017-05-31 14:01 | OP ---
The patient is intubated on the vent. PROCEDURE: Bronchoscopy with lavage. INDICATIONS: Retained secretions. POST-BRONCHOSCOPY FINDINGS: Moderate amount of relatively clear mucoid secretions. There was evide nce of whitish plaques involving the right lateral tracheal wall as well as rather extensive white p laques in the right lower lung basilar segments consistent with a yeast infection. PROCEDURE IN DETAIL: After informed consent from son. A flexible bronchoscope was passed using an adapter on the endotracheal tube, distal trachea, man was normal, but the right lateral wall had evidence of extensive whitish plaques. There were mucoid secretions, and the right lung was inspect ed initially, which was suctioned and lavaged until clear. No endobronchial disease was seen. No b leeding was seen. There is marked amount of edema in the entire right lung. The right lower lung b asilar segments had whitish plaques consistent with yeast infection. The left lung was inspected thereafter. She has also had moderate amount of mucous secretions, rela tively clear, but no endobronchial obstruction, blood or pus seen. Both lungs lavaged with normal s ami until completely clear. She will be started on Diflucan 100 mg a day for a week.
[2017-05-31] MEDS: Pantoprazole 40 MG GRANULES PACKET PER TUBE SCH (20:31)
[2017-06-01] MEDS: Albumin 25% 25 GM/100 ML BOT IVPB SCH ×5 (02:08→20:16)
[2017-06-01] MEDS: Propofol 1,000 MG/100 ML VIAL IV PRN (03:23)
[2017-06-01 04:45] LABS: #Lymphocytes 0.2 thou/uL (1.20-3.40); #Monocytes 0.6 thou/uL (0.11-0.59); #Neutrophils 7.9 thou/uL (1.40-6.50); %Basophils 0.6 % (0.0-1.0); %Eosinophils 0.2 % (0.0-10.0); %Lymphocytes 2.3 % (21.0-51.0); %Monocytes 6.9 % (0.0-10.0); Hematocrit 23.8 % (36.0-47.0); Mean Platelet Volume 9.6 fL (7.4-10.4); Red Blood Cell (RBC) Count 2.68 mill/uL (4.20-5.40); White Blood Cell (WBC) Count 8.7 thou/uL (4.8-10.8)
[2017-06-01 04:57] LABS: ALT (SGPT) 108 U/L (8-55); AST (SGOT) 99 U/L (5-34); Alkaline Phosphatase 191 U/L (40-150); Anion Gap 17 mmol/L (10-20); BUN (Urea Nitrogen) 76 mg/dL (9.8-20.1); Bilirubin, Total 2.4 mg/dL (0.2-1.2); Calc. Creatinine Clearance 23 mL/min (70-130); Calcium 9.6 mg/dL (7.8-10.44); Carbon Dioxide 22 mmol/L (23-31); Chloride 97 mmol/L (98-107); Estimated GFR-MDRD 18; Globulin 1.9 g/dL (2.4-3.5); Magnesium 2.3 mg/dL (1.6-2.6)
[2017-06-01] MEDS: Levothyroxine Sodium 75 MCG TAB PO SCH (05:03)
[2017-06-01 07:17] LABS: Oxyhemoglobin 95.3 % (94.0-97.0); Sodium 133 mmol/L (135-148)
[2017-06-01 07:22] LABS: Mechanical Tidal Volume 450 ml; Mode SIMV.PSV; Modified Allen's Test POSITIVE; Pressure Support 10 cmH2O; Vent YES
--- NOTE | 2017-06-01 08:01 | RAD ---
PORTABLE CHEST 1 VIEW: DATE; 06/01/17. TIME: 4:28 a.m. HISTORY: Respiratory failure. FINDINGS/IMPRESSION: No significant interval change is seen since the previous day's exam. POS: JULIETA
[2017-06-01] MEDS ORDERED: Furosemide 100 MG/10 ML VIAL SLOW IVP SCH (08:30)
--- NOTE | 2017-06-01 08:54 | PRG ---
DATE OF SERVICE: 06/01/2017 SUBJECTIVE: Ms. Escamilla is an 82-year-old white female who is being seen by the Renal Service for her acute kidney injury secondary to presumed acute tubular necrosis. She has been started on p.r.n. La six to increase her urine output. Chest x-ray still shows increased lung markings. She is still in tubated on ventilator support. No acute events last night. PHYSICAL EXAMINATION: VITAL SIGNS: Blood pressure is 120/64, heart rate 79, respiratory rate is 21, pulse ox 100%. GENERAL: Noted to be arousable, intubated on ventilator support. SKIN: Adequate turgor. HEENT: Slightly pale conjunctivae, anicteric sclerae. NECK: No neck mass, no carotid bruits, no JVD. CHEST: No deformities. LUNGS: Decreased breath sounds. HEART: Normal sinus rhythm. No murmur, no gallops, no rubs. ABDOMEN: Globular, soft, nontender. EXTREMITIES: Positive for edema. MEDICATIONS: 06/01/2017 - Reviewed. LABORATORY: 06/01/2017 - White count 8.7, hemoglobin 7.6, hematocrit 23.8, platelet count 210,000. Sodium 132, potassium 3.9, chloride 97, carbon dioxide 22, BUN 66, creatinine 2.57, glucose 139, tianna sphorus 4, calcium 9.6, magnesium 2.3, albumin is 4.1. ASSESSMENT AND PLAN: 1. Acute kidney injury secondary to a presumed acute tubular necrosis - nonoliguric. Last urine ou tput noted at 2 liters. Will give her one more time dose of Lasix 80 mg IV. Case discussed with [facility] house staff. Continue supportive care. There is no indication for any dialytic intervention with this patient. 2. Sepsis syndrome - on empiric IV antibiotics. 3. Anemia. Continue to monitor, p.r.n. blood transfusion. Overall, prognosis remains guarded.
--- NOTE | 2017-06-01 09:12 | PRG ---
DATE OF SERVICE: 06/01/2017 This morning she is intubated on the vent, sedated, awake, responsive, weak. PHYSICAL EXAMINATION: VITAL SIGNS: Blood pressure 120/64, O2 sat 90%, respirations 21. I's and O's are 4196 in, 2005 out . CHEST: Chest reveals bilateral crackles and rhonchi. CARDIAC: Normal S1-S2. No gallops. ABDOMEN: Soft. LABORATORY: White count 8.7, H\T\H 7 and 23, platelet count 210, PO2 was 88, pCO2 41, pH 7.35 on a rate of 10, 40%, 450 tidal volume, BUN and creatinine is 76 and 2.57. AST is elevated. Bilirubin r emains elevated at 2.4. IMPRESSION: 1. Multiorgan failure. 2. Respiratory failure. 3. Congestive heart failure. 4. Morbid obesity. 5. Severe deconditioning. 6. Renal failure. 7. Recent aortic valve surgery. 8. Elevated liver function tests. PLAN: Ms. Escamilla is day #12 on the vent. It is unclear if she is going to come off of the vent. We will make a decision regarding trach and PEG in the next several days. Her liver function still remains elevated. Question whether she needs further GI input, too. Some broad-spectrum antibiotics. Still on Lasix. She still remains azotem ic. Continue nutrition, PT. Prognosis remains guarded. One-half hour critical care time.
[2017-06-01] MEDS: Lactinex Tablet PO SCH (10:15)
[2017-06-01] MEDS: Fluconazole 100 MG TAB PO SCH (10:15)
[2017-06-01] MEDS: Heparin 5,000 UNITS/ML VIAL SC SCH ×2 (10:15→20:16)
[2017-06-01] MEDS: Linezolid 600 MG in Premix Bag 1 BAG IVPB SCH ×2 (10:15→20:16)
[2017-06-01] MEDS: Clopidogrel Bisulfate 75 MG TAB PO SCH (10:16)
[2017-06-01] MEDS: Polyethylene Glycol 3350 17 GM Packet PER TUBE SCH (10:16)
--- NOTE | 2017-06-01 11:20 | PDOC.FM ---
- Subjective Subjective: No adverse events overnight. Awake and following commands. - Objective MAR Reviewed: Yes Vital Signs & Weight: Vital Signs (12 hours) Temp Pulse Resp BP Pulse Ox 06/01/17 10:42 76 126/69 06/01/17 10:40 77 28 H 98 06/01/17 08:00 98.4 F 06/01/17 06:32 79 120/64 06/01/17 06:30 79 21 H 98 06/01/17 05:48 21 H 06/01/17 04:00 98.0 F 23 H 06/01/17 02:37 78 20 100 06/01/17 02:00 98.1 F 22 H 06/01/17 00:00 19 Weight Admit Weight 67.222 kg Weight 88.4 kg Most Recent Monitor Data Heart Rate from ECG 82 NIBP 126/69 NIBP BP-Mean 79 Respiration from ECG 22 SpO2 99 I&O: 05/31/17 06/01/17 06/02/17 06:59 06:59 06:59 Intake Total 4196 2335.8 340 Output Total 2004 2195 250 Balance 2191 140.8 90 Result Diagrams: 06/01/17 03:54 06/01/17 03:54 Phys Exam - Physical Examination Constitutional: NAD Respiratory: clear to auscultation bilateral Cardiovascular: RRR Gastrointestinal: soft, non-tender Musculoskeletal: edema present Neurological: moves all 4 limbs Dx/Plan (1) Acute respiratory failure Code(s): J96.00 - ACUTE RESPIRATORY FAILURE, UNSP W HYPOXIA OR HYPERCAPNIA Status: Acute Qualifiers: Qualified Code(s): J96.01 - Acute respiratory failure with hypoxia (2) Ventilator associated pneumonia Code(s): J95.851 - VENTILATOR ASSOCIATED PNEUMONIA Status: Acute (3) CHF exacerbation Code(s): I50.9 - HEART FAILURE, UNSPECIFIED Status: Suspected Qualifiers: Qualified Code(s): I50.9 - Heart failure, unspecified (4) Constipation Code(s): K59.00 - CONSTIPATION, UNSPECIFIED Status: Acute Qualifiers: Qualified Code(s): K59.01 - Slow transit constipation (5) Fluid overload, unspecified Code(s): E87.70 - FLUID OVERLOAD, UNSPECIFIED Status: Acute Qualifiers: Qualified Code(s): E87.79 - Other fluid overload (6) Physical deconditioning Code(s): R53.81 - OTHER MALAISE Status: Acute (7) Elevated transaminase level Code(s): R74.0 - NONSPEC ELEV OF LEVELS OF TRANSAMNS & LACTIC ACID DEHYDRGNSE Status: Acute - Plan Plan: Acute Respiratory Failure 2/2 ARDS vs. volume overload vs. VAP - Continue cefepime , Linezolid, and Diflucan - Pt not currently weanable from vent. Per pulm, will decide to trach/PEG in the near future. - continue tube feeds. CHF - continue diuresis. Acute renal failure - kidney function has improved. - UOP was over 2L yesterday. - continue to monitor.
[2017-06-01] MEDS: Cefepime 1 GM in Sodium Chloride 0.9% 100 ML IVPB SCH (13:39)
[2017-06-01] MEDS: Pantoprazole 40 MG GRANULES PACKET PER TUBE SCH (20:16)
--- NOTE | 2017-06-01 20:20 | PRG ---
DATE OF SERVICE: 06/01/2017 GI INPATIENT DAILY PROGRESS NOTE SUBJECTIVE: Ms. Escamilla has remained on the ventilator; however, she is not sedated. She is tolerating the ventilator well. She is able to answer questions appropriately, trending the LFTs, they have overall trended down over the past 3 days, though they have remained elevated. She denies any abdominal pain. She seems to be tolerating tube feeds well, continuing to have bowel movements. OBJECTIVE: VITAL SIGNS: Temperature 97.9, pulse 76, blood pressure 127/66, and 98% oxygen saturation on ventilator. GENERAL: Critically ill, awake, alert, able to answer questions on ventilator. HEART: Regular rate and rhythm. LUNGS: Bilateral vent sounds. ABDOMEN: Bowel sounds present, soft and nontender to palpation. EXTREMITIES: 1+ edema of the upper and lower extremities. LABORATORY STUDIES: WBC down to 8.7, hemoglobin 7.6, and platelets 210. Sodium 132, potassium 3.9, BUN 76, creatinine 2.57, total bilirubin 2.4, alkaline phosphatase 191, AST 99, ALT 108. ASSESSMENT AND PLAN: 1. Ileus, resolved. 2. Elevated liver function tests. 3. Cholelithiasis. 4. Biliary dilation. 5. Respiratory failure with prolonged intubation. I have been monitoring the LFTs peripherally over the past 3 days. Overall, there is a down trend but they do remain elevated. Given the biliary dilation and cholelithiasis seen on ultrasound imaging, she likely does indeed have choledocholithiasis. I still do not think this is really driving her overall presentation. There is really no evidence of cholangitis. She would be very high anesthetic risk for ERCP and I do not think the potential benefit would really be enough to justify the risk at this point. However, if she is going to go to surgery for tracheostomy and PEG tube placement over the next few days, then we could potentially perform ERCP at that time as part of the same anesthesia, in order to minimize anesthesia risk. Please let me know surgical plans if any, and this could potentially be coordinated. Please call at any time with questions or concerns. [place]
[2017-06-02] MEDS: Cefepime 1 GM in Sodium Chloride 0.9% 100 ML IVPB SCH ×2 (00:03→13:15)
[2017-06-02] MEDS: Albumin 25% 25 GM/100 ML BOT IVPB SCH (02:54)
[2017-06-02 03:56] LABS: #Lymphocytes 0.2 thou/uL (1.20-3.40); #Monocytes 0.5 thou/uL (0.11-0.59); #Neutrophils 8.9 thou/uL (1.40-6.50); %Eosinophils 0.1 % (0.0-10.0); %Lymphocytes 2.3 % (21.0-51.0); %Monocytes 4.7 % (0.0-10.0); Hematocrit 21.4 % (36.0-47.0); Mean Platelet Volume 9.4 fL (7.4-10.4); Red Blood Cell (RBC) Count 2.41 mill/uL (4.20-5.40); White Blood Cell (WBC) Count 9.6 thou/uL (4.8-10.8)
[2017-06-02 04:21] LABS: ALT (SGPT) 95 U/L (8-55); AST (SGOT) 67 U/L (5-34); Alkaline Phosphatase 162 U/L (40-150); Anion Gap 15 mmol/L (10-20); BUN (Urea Nitrogen) 89 mg/dL (9.8-20.1); Calc. Creatinine Clearance 22 mL/min (70-130); Calcium 9.5 mg/dL (7.8-10.44); Carbon Dioxide 25 mmol/L (23-31); Chloride 98 mmol/L (98-107); Estimated GFR-MDRD 16; Globulin 1.7 g/dL (2.4-3.5); Magnesium 2.3 mg/dL (1.6-2.6); Phosphorus 4.5 mg/dL (2.3-4.7); Protein, Total 6.3 g/dL (6.0-8.3)
[2017-06-02] MEDS: Levothyroxine Sodium 75 MCG TAB PO SCH (05:06)
[2017-06-02 07:04] LABS: Oxyhemoglobin 95.2 % (94.0-97.0); Sodium 134 mmol/L (135-148)
[2017-06-02 07:07] LABS: Modified Allen's Test NOT DONE; Vent YES
[2017-06-02 07:08] LABS: Mechanical Tidal Volume 450 ml; Mode SIMV/PSV; Pressure Support 10 cmH2O
[2017-06-02] MEDS ORDERED: CCU Electrolyte Replacement 1 EACH FS ONE (08:12)
[2017-06-02] MEDS ORDERED: Potassium Chloride 40 MEQ in Premix Bag 1 BAG IVPB PRN (08:19)
[2017-06-02] MEDS ORDERED: Potassium Chloride 40 MEQ in Sodium Chloride 0.9% 250 ML 250 ML IVPB PRN (08:19)
[2017-06-02] MEDS ORDERED: Magnesium 2 GM/NS 0.9% 100 ML 2 GM in Premix Bag 1 BAG IVPB PRN (08:19)
[2017-06-02] MEDS ORDERED: Potassium Chloride 20 MEQ TAB PO PRN (08:19)
[2017-06-02] MEDS ORDERED: Potassium Phosphate 15 MMOL in Sodium Chloride 0.9% 250 ML 250 ML IV PRN (08:19)
[2017-06-02] MEDS ORDERED: Potassium Phosphate 9 MMOL in Sodium Chloride 0.9% 100 ML IVPB PRN (08:19)
[2017-06-02] MEDS ORDERED: Potassium Phosphate 12 MMOL in Sodium Chloride 0.9% 250 ML 250 ML IV PRN (08:19)
[2017-06-02] MEDS ORDERED: Magnesium Oxide 400 MG TAB PO PRN ×2 (08:19)
--- NOTE | 2017-06-02 08:41 | PDOC.FM ---
- Subjective Subjective: No adverse events overnight. Awake and following commands. - Objective MAR Reviewed: Yes Vital Signs & Weight: Vital Signs (12 hours) Temp Pulse Resp BP Pulse Ox 06/02/17 08:01 75 18 100 06/02/17 06:34 73 125/71 06/02/17 06:00 20 06/02/17 05:00 98.1 F 06/02/17 04:00 20 06/02/17 02:27 71 17 100 06/02/17 02:00 19 06/02/17 00:00 97.9 F 17 06/01/17 22:00 19 06/01/17 21:13 75 20 96 Weight Admit Weight 67.222 kg Weight 88.3 kg Most Recent Monitor Data Heart Rate from ECG 72 NIBP 125/71 NIBP BP-Mean 81 Respiration from ECG 18 SpO2 100 I&O: 06/01/17 06/02/17 06/03/17 06:59 06:59 06:59 Intake Total 2335.8 2007.4 Output Total 2195 1785 Balance 140.8 222.4 Result Diagrams: 06/02/17 03:35 06/02/17 03:35 <Alaina Pablo - Last Filed: 06/02/17 11:55> - Objective Vital Signs & Weight: Vital Signs (12 hours) Temp Pulse Resp BP Pulse Ox 06/02/17 16:00 24 H 06/02/17 15:53 97.8 F 06/02/17 14:57 76 132/67 06/02/17 14:55 76 20 99 06/02/17 14:00 17 06/02/17 12:00 98.6 F 15 06/02/17 11:03 79 22 H 97 06/02/17 10:21 79 131/73 06/02/17 10:00 21 H 06/02/17 08:01 75 18 100 06/02/17 08:00 98.7 F 22 H 06/02/17 06:34 73 125/71 06/02/17 06:00 20 Weight Admit Weight 67.222 kg Weight 88.3 kg Most Recent Monitor Data Heart Rate from ECG 80 NIBP 146/73 NIBP BP-Mean 87 Respiration from ECG 29 SpO2 94 I&O: 06/01/17 06/02/17 06/03/17 06:59 06:59 06:59 Intake Total 2335.8 2007.4 80 Output Total 2195 1785 475 Balance 140.8 222.4 -395 Result Diagrams: 06/02/17 03:35 06/02/17 03:35 <Kirby Soto - Last Filed: 06/02/17 17:16> Phys Exam - Physical Examination Constitutional: NAD Respiratory: wheezing present Cardiovascular: RRR Gastrointestinal: soft, non-tender Musculoskeletal: edema present (diffuse, upper and lower extremity) Neurological: moves all 4 limbs awake and follows commands. <SamyAlaina C - Last Filed: 06/02/17 11:55> Dx/Plan (1) Acute respiratory failure Code(s): J96.00 - ACUTE RESPIRATORY FAILURE, UNSP W HYPOXIA OR HYPERCAPNIA Status: Acute Qualifiers: Respiratory failure complication: hypoxia Qualified Code(s): J96.01 - Acute respiratory failure with hypoxia (2) Ventilator associated pneumonia Code(s): J95.851 - VENTILATOR ASSOCIATED PNEUMONIA Status: Acute (3) CHF exacerbation Code(s): I50.9 - HEART FAILURE, UNSPECIFIED Status: Suspected Qualifiers: Congestive heart failure type: unspecified congestive heart failure type Qualified Code(s): I50.9 - Heart failure, unspecified (4) Constipation Code(s): K59.00 - CONSTIPATION, UNSPECIFIED Status: Acute Qualifiers: Constipation type: slow transit constipation Qualified Code(s): K59.01 - Slow transit constipation (5) Fluid overload, unspecified Code(s): E87.70 - FLUID OVERLOAD, UNSPECIFIED Status: Acute Qualifiers: Hypervolemia type: other Qualified Code(s): E87.79 - Other fluid overload (6) Physical deconditioning Code(s): R53.81 - OTHER MALAISE Status: Acute (7) Elevated transaminase level Code(s): R74.0 - NONSPEC ELEV OF LEVELS OF TRANSAMNS & LACTIC ACID DEHYDRGNSE Status: Acute - Plan Plan: VAP - Cefepime day #7, Linezolid day #4, Diflucan day #3 - continue antibiotic treatment Acute hypoxic respiratory failure - ARDS - continue lung protective strategies - Duonebs as needed for wheezing - Will consult general surgery for trach and PEG per pulm recommendations. Acute renal failure - will hold off on diuresis due to worsening renal failure. Choledocholithiasis - will discuss with GI possible ERCP while pt is in OR for trach/PEG/ <Alaina Pablo - Last Filed: 06/02/17 11:55> - Plan Plan: Seen and examined with Dr. Pablo and I agree with her H&P, A&P as indicated. I have repeated cedillo portions. ROS limited by intubation. Still with anasarca, ARDS-multifactorial, VAP on antibiotics, empiric antifungal , with worsening ORLY. Guarded prognosis. <Kirby Soot - Last Filed: 06/02/17 17:16>
--- NOTE | 2017-06-02 09:47 | PRG ---
DATE OF SERVICE: 06/02/2017 SUBJECTIVE: Ms. Escamilla remains intubated. Plan for eventual PEG tube and tracheostomy is being enter tained. She received Lasix yesterday. Urine output was noted to be 1.7 liters in the last 24 hours . I noted that the creatinine has been worsening and for that reason, we will hold off any Lasix wi th this patient for the moment. PHYSICAL EXAMINATION: VITAL SIGNS: Blood pressure is 125/71, heart rate 75, respiratory rate 18, pulse ox 100%. GENERAL: Awake, alert, comfortable, not in distress. SKIN: Adequate turgor. HEENT: Slightly pale conjunctivae, anicteric sclerae. NECK: No neck mass, no carotid bruits, no JVD. CHEST: No deformities. LUNGS: Decreased breath sounds. HEART: Normal sinus rhythm. No murmur, no gallops, no rubs. ABDOMEN: Globular, soft, nontender, no masses. EXTREMITIES: Positive for edema, but no deformities. MEDICATIONS: 06/02/2017 - Reviewed. LABORATORY: 06/02/2017 - White count 9.6, hemoglobin 7.2, hematocrit 21.4. Sodium 135, potassium 3 .4, chloride 98, carbon dioxide 25, BUN 89, creatinine 2.82, GFR 16 mL per minute, glucose 139, phos phorus 4.5, magnesium 2.3, calcium 9.5, albumin 4.6. ASSESSMENT AND PLAN: 1. Acute kidney injury - consider acute tubular necrosis. Continue supportive care. The patient i s nonoliguric. The patient has been receiving daily Lasix for the last 3 days. We will hold off La six for today due to the slightly worsening renal dysfunction. Creatinine is noted at 2.82. 2. Anemia. Continue to observe. Once the hemoglobin reaches 7 or less consider doing a blood tra nsfusion with this patient. 3. Acute respiratory failure, unable to wean. Plan for tracheostomy is being entertained. No indication for any dialytic intervention.
--- NOTE | 2017-06-02 10:02 | RAD ---
AP VIEW CHEST: HISTORY: Ventilator dependent. COMPARISON: 06/01/2017 TECHNIQUE: AP view chest is obtained. FINDINGS: AP view chest demonstrates a prosthetic intracardiac stent in place. Nasogastric and endotracheal t ubes are in place. Cardiomegaly is seen. Pulmonary vascular congestion is seen. Diffuse bilateral air space opacities is seen, compatible with pulmonary edema. Bilateral pleural effusions are seen . There is a right jugular central line in place. IMPRESSION: Stable anterior-posterior view chest with cardiomegaly, pulmonary vascular congestion, and pulmonary edema. POS: JULIETA
[2017-06-02] MEDS: Polyethylene Glycol 3350 17 GM Packet PER TUBE SCH (10:16)
[2017-06-02] MEDS: Fluconazole 100 MG TAB PO SCH (10:16)
[2017-06-02] MEDS: Lactinex Tablet PO SCH (10:16)
[2017-06-02] MEDS: Clopidogrel Bisulfate 75 MG TAB PO SCH (10:16)
[2017-06-02] MEDS: Linezolid 600 MG in Premix Bag 1 BAG IVPB SCH ×2 (10:17→21:04)
[2017-06-02] MEDS: Heparin 5,000 UNITS/ML VIAL SC SCH ×2 (10:17→21:05)
--- NOTE | 2017-06-02 12:56 | PRG ---
DATE OF SERVICE: 06/02/2017 SUBJECTIVE: Ms. Esthela Escamilla is intubated on the vent, sedated, slightly more responsive. OBJECTIVE: VITAL SIGNS: Blood pressure 125/71, sats are 100%, respirations 18, pulse 80. I's and O's are 2335 in and 2195 out. CHEST: Reveals bilateral rhonchi and crackles. CARDIAC: Sinus tachycardia. ABDOMEN: Soft, no masses. LABORATORY DATA: White count 9000, H\T\H is 7 and 21, decreased. Platelet count is 187, pO2 was 93 , pCO2 45 and pH 7.33, rate 10, 40%, pressure support of 10, PEEP of 5. BUN and creatinine are 89 a nd 2.8. IMPRESSION: 1. Multiorgan failure. 2. Renal failure, worsening. 3. Anemia. 4. Respiratory failure. 5. Congestive heart failure. 6. Pneumonia. 7. Severe deconditioning. 8. Recent aortic valve surgery. PLAN: She is on Maxipime, amiodarone, Zyvox, Synthroid, steroids, nutrition, PT. At this stage, she is not weanable. I suggest, we try and discuss with the son regarding trach and a PEG. She probably needs to be transfused 2 units of packed cells today. Otherwise, we will follow. One-half hour critical care time.
--- NOTE | 2017-06-02 13:43 | PRG ---
DATE OF SERVICE: 06/02/2017 GI INPATIENT DAILY PROGRESS NOTE SUBJECTIVE: No significant change in status. She remains on the ventilator, awake. LFTs continue to trend down marginally. I understand surgery has been consulted for consideration of tracheostomy and PEG placement. PHYSICAL EXAMINATION: VITAL SIGNS: Pulse 79, blood pressure 139/77, 97% oxygen saturation on ventilator, temperature 98.7 degrees. GENERAL: Awake, able to answer questions on ventilator. HEART: Regular rate and rhythm. LUNGS: Bibasilar crackles. ABDOMEN: Mild distention, tympanitic, bowel sounds present, soft, mild tenderness in the upper abdo men. EXTREMITIES: No peripheral edema. LABORATORY STUDIES: Sodium 135, potassium 3.4, BUN 89, creatinine 2.82, total bilirubin 2.0, alkali ne phosphatase 162, AST 67, ALT 95, albumin 4.6. WBC 9.6, hemoglobin 7.2, and platelets 187. ASSESSMENT AND PLAN: 1. Elevated liver function tests. 2. Cholelithiasis. 3. Biliary dilation, suspicious for choledocholithiasis. 4. Respiratory failure. I had a long discussion with the patient and her daughter this afternoon, bringing them up to date from a GI/liver perspective. My impression remains that she likely does sanders ve some degree of choledocholithiasis, but this is not driving her presentation. I understand Surge ry has been consulted and I will try to touch base with them later today. Could consider performing endoscopic retrograde cholangiopancreatography under the same anesthesia if she is going to be florence g for tracheostomy. Discussed with the patient and family that this would pose an additional risk o f post-endoscopic retrograde cholangiopancreatography pancreatitis.
[2017-06-02] MEDS ORDERED: FLU VACC TS2017-18 (>65YR) 0.5 ML SYRINGE IM ONE (16:15)
--- NOTE | 2017-06-02 17:45 | CON ---
DATE OF CONSULTATION: 06/02/2017 GENERAL SURGERY CONSULTATION CHIEF COMPLAINT: Prolonged ventilatory dependency. HISTORY: The patient is an 82-year-old female who was admitted on 05/20/2017 with abdominal pain an d constipation, progressive dyspnea, was intubated code green. She has had a long prolonged stay. They were not able to wean her. In fact, one time they were considering an ERCP and she cherelle down. PAST MEDICAL HISTORY: Congestive heart failure, history of CVA, atrial fibrillation, carotid stenos is, hyperlipidemia, hypertension, and coronary artery disease. PAST SURGICAL HISTORY: Aortic valve replacement and coronary stent. ALLERGIES: No known drug allergies. SOCIAL HISTORY: No tobacco or alcohol. IMAGING: Echo was negative. Ultrasound showed cholelithiasis, thickened gallbladder wall. Common bile duct was dilated. PHYSICAL EXAMINATION: VITAL SIGNS: Temperature 98.7, pulse 79, blood pressure 131/73. GENERAL: Elderly female, sedated on the vent. HEENT: No jaundice. LUNGS: Clear. HEART: Regular rate and rhythm. ABDOMEN: Distended, no palpable masses. EXTREMITIES: Unremarkable. LABORATORY DATA AND X-RAY FINDINGS: Her white count is 9.6, H\T\H 7.2 and 21, platelet count 187. PT 16, INR 1.3, PTT 38. Electrolytes fine. Total bilirubin is 2, which is down. Urinalysis, too n umerous to count white cells. She had a barium enema showing no obstruction. Ultrasound with elian lithiasis and thickened gallbladder wall. PLAN: If cardiac clearance is clear, probably recommend laparoscopic cholecystectomy with cholangio gram and tracheostomy; if not clear, will have to talk to the family.
[2017-06-02] MEDS: Pantoprazole 40 MG GRANULES PACKET PER TUBE SCH (21:05)
[2017-06-03] MEDS: Cefepime 1 GM in Sodium Chloride 0.9% 100 ML IVPB SCH ×2 (01:56→13:20)
[2017-06-03 04:31] LABS: #Lymphocytes 0.3 thou/uL (1.20-3.40); #Monocytes 0.8 thou/uL (0.11-0.59); #Neutrophils 10.7 thou/uL (1.40-6.50); %Basophils 0.3 % (0.0-1.0); %Eosinophils 0.2 % (0.0-10.0); %Lymphocytes 2.7 % (21.0-51.0); %Monocytes 6.7 % (0.0-10.0); Hematocrit 29.6 % (36.0-47.0); Mean Platelet Volume 9.3 fL (7.4-10.4); Red Blood Cell (RBC) Count 3.29 mill/uL (4.20-5.40); White Blood Cell (WBC) Count 11.9 thou/uL (4.8-10.8)
[2017-06-03 04:47] LABS: ALT (SGPT) 102 U/L (8-55); AST (SGOT) 60 U/L (5-34); Alkaline Phosphatase 175 U/L (40-150); Anion Gap 16 mmol/L (10-20); BUN (Urea Nitrogen) 105 mg/dL (9.8-20.1); Bilirubin, Total 2.7 mg/dL (0.2-1.2); Calc. Creatinine Clearance 21 mL/min (70-130); Calcium 9.3 mg/dL (7.8-10.44); Carbon Dioxide 25 mmol/L (23-31); Chloride 97 mmol/L (98-107); Estimated GFR-MDRD 16; Globulin 1.9 g/dL (2.4-3.5); Magnesium 2.4 mg/dL (1.6-2.6); Phosphorus 4.9 mg/dL (2.3-4.7)
[2017-06-03] MEDS: Levothyroxine Sodium 75 MCG TAB PO SCH (06:46)
--- NOTE | 2017-06-03 07:05 | PDOC.FM ---
- Subjective Subjective: CC: Denies pain. HPI: No family at bedside. Patient denies pain. Nursing reports no acute events overnight. Awaiting cardiology clearance. - Objective MAR Reviewed: Yes Vital Signs & Weight: Vital Signs (12 hours) Temp Pulse Pulse Resp BP Pulse Ox 06/03/17 04:00 97.6 F 14 06/03/17 03:00 77 06/03/17 02:59 77 18 99 06/03/17 02:00 16 06/03/17 00:00 97.7 F 19 06/02/17 23:30 97.7 F 76 19 137/76 99 06/02/17 22:48 76 06/02/17 22:47 76 20 96 06/02/17 22:00 22 H 06/02/17 21:00 98.3 F 77 20 142/82 H 99 06/02/17 20:46 98.3 F 76 22 H 142/80 H 99 06/02/17 20:40 98.3 F 76 21 H 148/76 H 100 06/02/17 20:18 98.3 F 77 21 H 148/78 H 06/02/17 20:00 97.7 F 78 19 99 06/02/17 19:20 79 06/02/17 19:19 79 25 H 98 Weight Admit Weight 67.222 kg Weight 88.6 kg Most Recent Monitor Data Heart Rate from ECG 76 NIBP 137/73 NIBP BP-Mean 91 Respiration from ECG 24 SpO2 98 I&O: 06/02/17 06/03/17 06/04/17 06:59 06:59 06:59 Intake Total 2007.4 1128 Output Total 1785 1013 Balance 222.4 115 Result Diagrams: 06/03/17 04:00 06/03/17 04:00 Radiology Reviewed by me: Yes (stable CXR) <Cole Williamson W - Last Filed: 06/03/17 07:03> - Objective Vital Signs & Weight: Vital Signs (12 hours) Temp Pulse Resp BP Pulse Ox 06/03/17 12:00 75 136/75 06/03/17 11:55 76 17 100 06/03/17 10:00 17 06/03/17 08:00 96.8 F L 16 06/03/17 07:12 75 143/76 H 06/03/17 07:11 75 18 98 06/03/17 04:00 97.6 F 14 06/03/17 03:00 77 06/03/17 02:59 77 18 99 06/03/17 02:00 16 Weight Admit Weight 148 lb 3.186 oz Weight 195 lb 5.273 oz Most Recent Monitor Data Heart Rate from ECG 74 NIBP 125/67 NIBP BP-Mean 75 Respiration from ECG 17 SpO2 99 I&O: 06/02/17 06/03/17 06/04/17 06:59 06:59 06:59 Intake Total 2007.4 1528 250 Output Total 1785 1043 135 Balance 222.4 485 115 Result Diagrams: 06/03/17 04:00 06/03/17 04:00 <Hanane Garrido - Last Filed: 06/03/17 12:53> Phys Exam - Physical Examination Constitutional: NAD HEENT: moist MMs, sclera anicteric ET tube at 21 cm at lips. Neck: no nodes Right IJ in place Respiratory: wheezing present (diffusely ) Cardiovascular: RRR, no significant murmur Gastrointestinal: soft, positive bowel sounds worsening distention since last exam. Musculoskeletal: edema present (diffuse anasarca ) Neurological: non-focal, moves all 4 limbs Skin: cap refill <2 seconds Deviation from normal: mulitple skin tears on upper extremities <Cole Williamson - Last Filed: 06/03/17 07:03> Dx/Plan (1) Acute respiratory failure Code(s): J96.00 - ACUTE RESPIRATORY FAILURE, UNSP W HYPOXIA OR HYPERCAPNIA Status: Acute Qualifiers: Respiratory failure complication: hypoxia Qualified Code(s): J96.01 - Acute respiratory failure with hypoxia Plan: Intubated on 05/24. Bronchoscopy on 05/26 and 05/31 for mucous plugging. - vent management per pulmonology - vent settings unchanged. not weanable per Pulm. - Stable CXR - Awaiting recommendations from pulmonology - Cefepime day 9, linezolid day 4, diflucan day 5 - receiving steroids per Pulm. - general surgery consulted for Trach and PEG. (2) Ventilator associated pneumonia Code(s): J95.851 - VENTILATOR ASSOCIATED PNEUMONIA Status: Acute Plan: Cefepime day 9, linezolid day 6, diflucan day 5 - stop diflucan on 06/06 - cefepime and linezolid duration per pulmonology. (3) CHF exacerbation Code(s): I50.9 - HEART FAILURE, UNSPECIFIED Status: Suspected Qualifiers: Congestive heart failure type: unspecified congestive heart failure type Qualified Code(s): I50.9 - Heart failure, unspecified Plan: TTE showed normal EF with minimal valve dysfunction. Clinically appears overloaded. - nephrology giving salt poor albumin to attempt to improve intravascular perfusion. - Repeat TTE today - net positive fluid intake entirety of hospitalization. Weight up 20 kg since admission. (4) Acute kidney injury Code(s): N17.9 - ACUTE KIDNEY FAILURE, UNSPECIFIED Status: Acute Plan: creatinine worsened. currently at 2.9. 1 - Nephrology feels this is ATN. no need for HD at this time. - monitor urine output. - renally dose medications. (5) Constipation Code(s): K59.00 - CONSTIPATION, UNSPECIFIED Status: Acute Qualifiers: Constipation type: slow transit constipation Qualified Code(s): K59.01 - Slow transit constipation Plan: GI following. Making small bowel movements - still making bowel movements. (6) Urinary tract infection Status: Acute Qualifiers: Urinary tract infection type: acute cystitis Hematuria presence: without hematuria Qualified Code(s): N30.00 - Acute cystitis without hematuria Plan: Cefepime day 6. culture negative. (7) Choledocholithiasis Code(s): K80.50 - CALCULUS OF BILE DUCT W/O CHOLANGITIS OR CHOLECYST W/O OBST Status: Acute Plan: LFTs stable. Gen surgery consulted. - Continue cefepime and linezolid - Plan for cholecystectomy today if cleared by cardiology. - hold tube feeds for surgery. (8) CKD (chronic kidney disease) stage 3, GFR 30-59 ml/min Code(s): N18.3 - CHRONIC KIDNEY DISEASE, STAGE 3 (MODERATE) Status: Acute Plan: will monitor. (9) Physical deconditioning Code(s): R53.81 - OTHER MALAISE Status: Acute Plan: CM will be consulted for placement once patient begins to improve. <Cole Williamson - Last Filed: 06/03/17 07:03> Attending Addendum - Attending Addendum I personally evaluated the patient and discussed the management with Dr. Williamson. I agree with the History, Examination, Assessment and Plan documented above with any addition or exceptions noted below. Patient needs trach, PEG, and cholecystectomy. Awaiting cardiology clearance for surgery. On multiple antibiotics and medications. Prognosis is poor. <Hanane Garrido - Last Filed: 06/03/17 12:53>
[2017-06-03 07:37] LABS: Oxyhemoglobin 93.6 % (94.0-97.0); Sodium 134 mmol/L (135-148)
[2017-06-03 07:42] LABS: Mechanical Tidal Volume 450 ml; Mode SIMV/PSV; Modified Allen's Test NOT DONE; Pressure Support 10 cmH2O; Vent YES
--- NOTE | 2017-06-03 08:06 | RAD ---
CHEST 1 VIEW: HISTORY: Dyspnea. Followup. COMPARISON: 06/02/17. FINDINGS: Cardiac silhouette remains magnified, enlarged, and partially obscured by patchy bibasilar infiltrat es. Pulmonary vasculature remains engorged with widespread airspace opacity similar in appearance t o the prior study. Lines and tubes appear unchanged in position. monitoring and evaluation advisor leads overlie the chest. IMPRESSION: Pulmonary edema and other findings are stable. POS: [facility]
--- NOTE | 2017-06-03 08:10 | PRG ---
DATE OF SERVICE: 06/03/2017 SUBJECTIVE: Ms. Escamilla is an 82-year-old white female, seen for acute kidney failure from presumed ac [place] tubular necrosis. She has received p.r.n. diuretics to enhance urine output. She is still unab le to wean off from her ventilator. OBJECTIVE: VITAL SIGNS: Blood pressure is 143/76, heart rate 75, respiratory rate 18, temperature 98%. GENERAL: Awake/arousable, but somewhat sleepy, intubated on ventilator support. HEENT: Slightly pinkish conjunctivae, anicteric sclerae. NECK: No neck mass, no carotid bruits, no JVD. CHEST: No deformities. LUNGS: Decreased breath sounds. HEART: Normal sinus rhythm. No murmur, no gallops, no rubs. ABDOMEN: Globular, soft, nontender, no masses. EXTREMITIES: Positive for edema. MEDICATIONS: Of 06/03/2017 reviewed. LABORATORY: 06/03/2017, white count 11.9, hemoglobin 9.6, hematocrit 29.6. Sodium 134, potassium 3 .6, chloride 97, carbon dioxide 25, BUN 105, creatinine 2.9, glucose is 125, phosphorous 4.9, calciu m is 9.3, albumin 4.1. ASSESSMENT AND PLAN: 1. Acute kidney injury -- secondary to ischemic acute tubular necrosis. Patient is status post diu resis in the last few days. Creatinine is now higher at 2.9. Please note that back 3 days ago the creatinine was 2.53. Her GFR has dropped down from 18-16 mL per minute. Even though there is a dec reased GFR, there is no indication for any dialytic intervention. The patient is normokalemic and i s not severely volume overloaded. Continue supportive care. We will reevaluate again in a.m. for a ny need for dialysis. For the moment, continue to hold off diuretics. 2. Acute respiratory failure - unable to wean for eventual tracheostomy and PEG tube placement. 3. Anemia -- improved status post blood transfusion.
[2017-06-03] MEDS: Lactinex Tablet PO SCH (09:14)
[2017-06-03] MEDS: Fluconazole 100 MG TAB PO SCH (09:14)
[2017-06-03] MEDS: Clopidogrel Bisulfate 75 MG TAB PO SCH (09:14)
[2017-06-03] MEDS: Heparin 5,000 UNITS/ML VIAL SC SCH ×2 (09:15→21:14)
[2017-06-03] MEDS: Linezolid 600 MG in Premix Bag 1 BAG IVPB SCH ×2 (09:17→21:15)
[2017-06-03] MEDS: Polyethylene Glycol 3350 17 GM Packet PER TUBE SCH (09:25)
--- NOTE | 2017-06-03 12:32 | PRG ---
DATE OF SERVICE: 06/03/2017 SUBJECTIVE: No significant clinical changes since yesterday. She remains on the ventilator. She h as continued to have bowel movements. She denies any abdominal pain. She is tolerating her [place] f feeds. She is awaiting Cardiology clearance for possible trach and cholecystectomy. OBJECTIVE: VITAL SIGNS: Pulse 75, blood pressure 136/75, 100% oxygen saturation on ventilator, temperature is 96.8. GENERAL: Awake and alert on ventilator, intubated. HEART: Regular rate and rhythm. LUNGS: Bilateral vent sounds. ABDOMEN: Mild distention, tympanitic, bowel sounds present, soft and nontender to palpation. EXTREMITIES: No peripheral edema. LABORATORY STUDIES: WBC 11.9, hemoglobin 9.6, platelets 196, sodium 134, potassium 3.6, BUN up to 1 05, creatinine up to 2.9, total bilirubin back up a little bit from 2.0 yesterday to 2.7 today. All other LFTs are stable with AST 60, ALT 102, alkaline phosphatase 175. ASSESSMENT AND PLAN: 1. Elevated liver function tests. 2. Cholelithiasis. 3. Biliary dilation, concern for choledocholithiasis. 4. Respiratory failure, prolonged on ventilator. I spoke with Dr. Lyon yesterday. We are awaiting Cardiology clearance so he can take her for plann ed tracheostomy as well as cholecystectomy. He will plan to perform intraoperative cholangiogram, a nd if this is positive, we can proceed with the ERCP under the same anesthesia.
--- NOTE | 2017-06-03 16:51 | PRG ---
DATE OF SERVICE: 06/03/2017 SUBJECTIVE: Esthela Escamilla will awaken and interact. OBJECTIVE: VITAL SIGNS: Heart rate is in the 80s. Blood pressure 135/77, respiratory rate 20s, oximetry is 94 . LUNGS: Clear anteriorly. HEART: Regular rhythm. ABDOMEN: Soft. IMAGING: Chest radiograph was reviewed, still has findings suggestive of pulmonary edema. LABORATORY DATA: White count 11.9, hemoglobin 9.6, platelets 196. Sodium 134, potassium 3.6, chloride 97, bicarbonate 25, BUN 105, creatinine 2.9, pH 7.28, CO2 of 53, pO2 of 82. Intake and output is positive 485. IMPRESSION: 1. Weakness and deconditioning. 2. Respiratory failure. 3. History of aortic stenosis, status post transcatheter aortic valve replacement. 4. History of stroke. 5. Hypertension. 6. History of coronary stenting. She is not felt to be weanable without a tracheostomy. It is felt that she may need to have her gallbladder taken out as well. This would be probably the first procedure that needs to be done, and then the tracheostomy, and then decisions can be made abo ut the PEG versus feeding with a Dobhoff tube. She is clinically stable, but certainly not weanable with her multiple problems. Her metabolic acidosis is most likely a result of her renal dysfunctio n.
--- NOTE | 2017-06-03 19:03 | CON ---
DATE OF CONSULTATION: 06/03/2017 INDICATION FOR CONSULTATION: For preop evaluation to see if the patient can undergo a cholecystecto my as well as a tracheostomy and probable PEG tube. HISTORY OF PRESENT ILLNESS: This is a very unfortunate 82-year-old female who has had a significant past medical history in the last several months starting back with a history of aortic valve stenos is and coronary artery disease. She underwent a PTCA and stent placement to the right coronary with a drug-eluting stent back in December of this year. She then underwent a TAVR percutaneous implantation of an aortic valve in end of December in [place]. She had been recovering quite well from that. She the n started to develop shortness of breath and developed more edema and presented back to the emergenc y room and has been in the hospital. At this time she has been found to have elevation of the liver function studies, it is felt that she has some problems with her gallbladder. She has had evaluati ons performed and has decreased function with gallbladder, has been advised that she undergo a elian cystectomy. She has also been difficult to wean. Since being in the hospital, she had respiratory distress requiring intubation and has been very difficult to extubate the patient, also her renal fu nction has been deteriorating. She has been seen in consultation by the children's attendant. Today, her c reatinine continues to climb upward at 2.9 with a BUN of 105 and she has significant edema throughou t the whole body. She is still on the ventilator. Family is at the bedside. She is unable to give any history, but the family did give me the information that she was better after the valvular impl ant, but now has continued to deteriorate again. Her echocardiogram did show evidence of diastolic dysfunction. This was performed, I believe, on 05/24/2017, she had ejection fraction of 55%-60% wit h a dilated left atrium and also the bioprosthetic valve, which appeared to be functioning normally with mild gradient across the valve and trace tricuspid valve regurgitation. Her blood pressure at this time has remained stable. The heart rate is also stable. Since she is on the drug-eluting marcos nt, this presents a problem if we are to stop the antiplatelet medications. She is on Plavix. Shou ld we stop the Plavix, then she may be at increased risk of thrombosing the coronary stent. PAST MEDICAL HISTORY: Significant for congestive heart failure which is diastolic in nature, aortic stenosis for which she underwent aortic valve replacement. She has had a CVA in the past. She has hypertension. She has hypothyroidism. She has had coronary artery disease and a right coronary st ent placement. She is deconditioned. ALLERGIES: None. MEDICATIONS: Prior to admission include Lipitor, levothyroxine, aspirin, amiodarone, Plavix, vitami ns, prednisone, iron sulfate, furosemide, Protonix as well as Zofran as needed. SOCIAL HISTORY: There is no history of alcohol or tobacco abuse. She lives home with her family vincent decker so she went to the rehab center and then came home and developed symptoms again. REVIEW OF SYSTEMS: Her review of systems is unobtainable at this time. She still remains on the ve ntilator. LABORATORY DATA: Shows a creatinine of 2.9 with a BUN of 105, potassium 3.5, blood sugar 125, her h emoglobin is 9.6, WBC 11.9, platelet count 196,000. PHYSICAL EXAMINATION: GENERAL: Reveals an elderly female. She is arousable. She seems to understand. She is relatively alert, but then back off to sleep. VITAL SIGNS: Her blood pressure is 132/76 at present, heart rate is 87 and irregular. She is afebr ile, respiratory rate 22, O2 saturation 97%. HEENT: Shows the head to be normocephalic and atraumatic. Carotid pulses are present. I cannot he ar any bruits. CHEST: Has bilateral coarse rales, could be upper airway noise, but does appear to be volume overlo aded. CARDIOVASCULAR: Exam reveals a regular rate and rhythm. She has a normal S1, S2. She has a very s oft systolic murmur noted at the apex and also at the upper sternal border. ABDOMEN: Shows obesity, somewhat tympanic. She has minimal bowel sounds. She did not elicit any o bvious tenderness while I palpated. EXTREMITIES: Showed 2+ edema, both in the upper and lower extremities. Pedal pulses are difficult to palpate. NEUROLOGIC: Difficult to assess, but the patient is arousable and on the ventilator. Chest x-ray today shows evidence of pulmonary edema. IMPRESSION: 1. Congestive heart failure which is more diastolic in nature. This is a difficult situation, she may need a short term dialysis in order to get the fluid off. We can certainly try to give IV Lasix again, this was given a couple days ago with good response, but unfortunately the creatinine may co ntinue to increase. We will ask for children's attendant to revisit with the patient to help adjust with fl uid management. 2. History of coronary disease, which appears to be stable at this time, status post stent placemen t to the right coronary artery in November of this year with a drug-coated stent which would necessitat e being on Plavix or some other oral antiplatelet medication for at least a year. Should we need em ergently to stop this, we can certainly stop it and given platelets for a short term and then resume the medication if she become an emergency. 3. Choledocholithiasis are still lodged in the gallbladder which the anticipation is to undergo pos sible cholecystectomy, but her liver functions seemed to be improving. We may need to wait until th e patient is in better condition in order to proceed with this. 3. Respiratory failure, on the ventilator. She is being evaluated for possible tracheostomy due to long-term ventilation. I would imagine that if we were able to get the fluid off, the respiratory status would significantly improve, then she may be able to get off the ventilator, but with a BNP e levated at 3430, this is obviously indicative of significant failure and chest x-ray also shows pulm onary edema. 4. Hypertension. This is under good control at this time. We will be more than happy to continue to follow the patient with you, but this is very difficult case with obviously her situation is more than just straight forward and prognosis is obviously guarded. We will discuss this case with the surgeons and also Nephrology when available.
[2017-06-03] MEDS: Pantoprazole 40 MG GRANULES PACKET PER TUBE SCH (21:15)
[2017-06-04] MEDS: Cefepime 1 GM in Sodium Chloride 0.9% 100 ML IVPB SCH ×3 (01:00→23:53)
[2017-06-04 04:22] LABS: #Lymphocytes 0.3 thou/uL (1.20-3.40); #Monocytes 0.4 thou/uL (0.11-0.59); #Neutrophils 9.3 thou/uL (1.40-6.50); %Basophils 0.1 % (0.0-1.0); %Eosinophils 0.2 % (0.0-10.0); %Lymphocytes 2.5 % (21.0-51.0); Hematocrit 28.7 % (36.0-47.0); Mean Platelet Volume 9.6 fL (7.4-10.4); Red Blood Cell (RBC) Count 3.17 mill/uL (4.20-5.40)
[2017-06-04 04:47] LABS: ALT (SGPT) 110 U/L (8-55); AST (SGOT) 58 U/L (5-34); Alkaline Phosphatase 183 U/L (40-150); Anion Gap 16 mmol/L (10-20); BUN (Urea Nitrogen) 115 mg/dL (9.8-20.1); Bilirubin, Total 2.2 mg/dL (0.2-1.2); Calc. Creatinine Clearance 21 mL/min (70-130); Calcium 8.8 mg/dL (7.8-10.44); Carbon Dioxide 24 mmol/L (23-31); Chloride 97 mmol/L (98-107); Estimated GFR-MDRD 15; Globulin 1.9 g/dL (2.4-3.5); Magnesium 2.3 mg/dL (1.6-2.6); Phosphorus 4.9 mg/dL (2.3-4.7); Protein, Total 5.5 g/dL (6.0-8.3)
[2017-06-04] MEDS: Levothyroxine Sodium 75 MCG TAB PO SCH (06:40)
--- NOTE | 2017-06-04 07:48 | PDOC.FM ---
- Subjective Subjective: CC: cough HPI: No family at bedside. Nurse reports some anxiety overnight. States cardiology did not clear for surgery. Patient is alert and follows commands. - Objective MAR Reviewed: Yes Vital Signs & Weight: Vital Signs (12 hours) Temp Pulse Resp Pulse Ox 06/04/17 06:00 98.2 F 13 06/04/17 04:00 13 06/04/17 03:00 67 06/04/17 02:59 67 16 100 06/04/17 02:00 13 06/04/17 00:00 15 06/03/17 22:25 83 06/03/17 22:24 83 18 98 06/03/17 22:00 20 06/03/17 20:00 15 06/03/17 19:58 98.0 F 83 15 98 Weight Admit Weight 67.222 kg Weight 90 kg Most Recent Monitor Data Heart Rate from ECG 71 NIBP 121/58 NIBP BP-Mean 97 Respiration from ECG 14 SpO2 100 I&O: 06/03/17 06/04/17 06/05/17 06:59 06:59 06:59 Intake Total 1528 1899.5 Output Total 1043 885 Balance 485 1014.5 Result Diagrams: 06/04/17 03:30 06/04/17 03:30 Radiology Reviewed by me: Yes (worsening pulmonary vascular congestion. ) <Cole Williamson - Last Filed: 06/04/17 07:46> - Objective Vital Signs & Weight: Vital Signs (12 hours) Temp Pulse Resp BP Pulse Ox 06/04/17 12:30 74 123/59 L 06/04/17 12:25 72 19 100 06/04/17 12:00 97.7 F 13 06/04/17 10:00 17 06/04/17 08:50 72 123/64 06/04/17 08:49 72 19 99 06/04/17 08:00 97.8 F 72 16 97 06/04/17 06:00 98.2 F 13 06/04/17 04:00 13 06/04/17 03:00 67 06/04/17 02:59 67 16 100 06/04/17 02:00 13 Weight Admit Weight 148 lb 3.186 oz Weight 198 lb 6.656 oz Most Recent Monitor Data Heart Rate from ECG 70 NIBP 123/59 NIBP BP-Mean 67 Respiration from ECG 13 SpO2 99 I&O: 06/03/17 06/04/17 06/05/17 06:59 06:59 06:59 Intake Total 1528 1899.5 460 Output Total 1043 885 225 Balance 485 1014.5 235 Result Diagrams: 06/04/17 03:30 06/04/17 03:30 <HemaHanane - Last Filed: 06/04/17 13:36> Phys Exam - Physical Examination Constitutional: NAD HEENT: moist MMs, sclera anicteric ET tube in place at 21 cm R IJ line Respiratory: wheezing present diffuse rhonchi Cardiovascular: RRR, no significant murmur Gastrointestinal: soft, positive bowel sounds worsening distention. no bowel movment for 4 days Musculoskeletal: edema present (diffuse anasarca ) Neurological: non-focal, moves all 4 limbs Skin: cap refill <2 seconds Deviation from normal: unchanged skin break mak <Cole Williamson W - Last Filed: 06/04/17 07:46> Dx/Plan (1) Acute respiratory failure Code(s): J96.00 - ACUTE RESPIRATORY FAILURE, UNSP W HYPOXIA OR HYPERCAPNIA Status: Acute Qualifiers: Respiratory failure complication: hypoxia Qualified Code(s): J96.01 - Acute respiratory failure with hypoxia Plan: Intubated on 05/24. Bronchoscopy on 05/26 and 05/31 for mucous plugging. - vent management per pulmonology - vent settings unchanged. not weanable per Pulm. - Worsening CXR - Awaiting recommendations from pulmonology - Cefepime day 10, linezolid day 7, diflucan day 6 - receiving steroids per Pulm. - general surgery consulted for Trach and PEG. (2) Ventilator associated pneumonia Code(s): J95.851 - VENTILATOR ASSOCIATED PNEUMONIA Status: Acute Plan: Cefepime day 10, linezolid day 7, diflucan day 6 - stop diflucan on 06/06 - cefepime and linezolid duration per pulmonology. (3) CHF exacerbation Code(s): I50.9 - HEART FAILURE, UNSPECIFIED Status: Suspected Qualifiers: Congestive heart failure type: unspecified congestive heart failure type Qualified Code(s): I50.9 - Heart failure, unspecified Plan: TTE showed normal EF with minimal valve dysfunction. Clinically appears overloaded. - net positive fluid intake entirety of hospitalization. Weight up 20 kg since admission. - Cardiology had no further recommendations - May need HD for fluid removal but will leave decision to Nephrology (4) Acute kidney injury Code(s): N17.9 - ACUTE KIDNEY FAILURE, UNSPECIFIED Status: Acute Plan: creatinine worsened. currently at 2.97. - Nephrology feels this is ATN. no need for HD at this time. - monitor urine output. Has decreased. - renally dose medications. (5) Constipation Code(s): K59.00 - CONSTIPATION, UNSPECIFIED Status: Acute Qualifiers: Constipation type: slow transit constipation Qualified Code(s): K59.01 - Slow transit constipation Plan: GI following. - Increased lactulose. No BM recorded for 4 days (6) Urinary tract infection Status: Acute Qualifiers: Urinary tract infection type: acute cystitis Hematuria presence: without hematuria Qualified Code(s): N30.00 - Acute cystitis without hematuria Plan: Cefepime culture negative. (7) Choledocholithiasis Code(s): K80.50 - CALCULUS OF BILE DUCT W/O CHOLANGITIS OR CHOLECYST W/O OBST Status: Acute Plan: LFTs stable. Gen surgery consulted. - Continue cefepime and linezolid - not stable for surgery per cardiology (8) CKD (chronic kidney disease) stage 3, GFR 30-59 ml/min Code(s): N18.3 - CHRONIC KIDNEY DISEASE, STAGE 3 (MODERATE) Status: Acute Plan: will monitor. (9) Physical deconditioning Code(s): R53.81 - OTHER MALAISE Status: Acute Plan: CM will be consulted for placement once patient begins to improve. <Cole Williamson - Last Filed: 06/04/17 07:46> Attending Addendum - Attending Addendum I personally evaluated the patient and discussed the management with Dr. Williamson. I agree with the History, Examination, Assessment and Plan documented above with any addition or exceptions noted below. Patient still failing to improve. GFR down to 15 and BNP > 3000. Patient appears clinically fluid overloaded. Patient not cleared by cardiology for trach , PEG, and cholecystectomy. Will need to see if she would be able to tolerate tracheostomy, since she has been intubated since 05/24/17. Prognosis is poor. Discussed palliative care with son. He says eventually he will take mother home to be comfortable in the end, but for now thinks a couple of rounds of dialysis would make all the difference for his mother. Explained that even the most minor procedure might push patient over the edge, which he acknowledged. Will continue present management. <Hanane Garrido - Last Filed: 06/04/17 13:36>
[2017-06-04] MEDS ORDERED: Nystatin Powder 15 GM BOT TOP PRN (08:08)
[2017-06-04] MEDS: Linezolid 600 MG in Premix Bag 1 BAG IVPB SCH ×2 (08:11→20:53)
[2017-06-04] MEDS: Lactinex Tablet PO SCH (08:17)
[2017-06-04] MEDS: Fluconazole 100 MG TAB PO SCH (08:17)
[2017-06-04] MEDS: Clopidogrel Bisulfate 75 MG TAB PO SCH (08:17)
[2017-06-04] MEDS: Polyethylene Glycol 3350 17 GM Packet PER TUBE SCH (08:17)
[2017-06-04] MEDS: Heparin 5,000 UNITS/ML VIAL SC SCH ×2 (08:17→20:53)
[2017-06-04 09:09] LABS: Oxyhemoglobin 94.3 % (94.0-97.0); Sodium 134 mmol/L (135-148)
--- NOTE | 2017-06-04 09:22 | RAD ---
CHEST 1 VIEW: HISTORY: Dyspnea. Followup. COMPARISON: 06/03/17. FINDINGS: Cardiac silhouette remains magnified, enlarged, and partially obscured by patchy bibasilar infiltrat es. Pulmonary vasculature remains markedly engorged with bilateral perihilar and scattered bilatera l infiltrates. Mediastinum is midline. Liens and tubes appear unchanged in position. Cardiac edward tor leads overlie the chest. IMPRESSION: Pulmonary edema and other findings are stable. POS: [facility]
[2017-06-04 09:46] LABS: Mechanical Tidal Volume 450 ml; Modified Allen's Test NOT DONE; Pressure Support 10 cmH2O; Vent YES
[2017-06-04 09:47] LABS: Mode SIMV/PSV
[2017-06-04] MEDS ORDERED: Furosemide 100 MG/10 ML VIAL SLOW IVP SCH (11:45)
--- NOTE | 2017-06-04 12:17 | PRG ---
DATE OF SERVICE: 06/04/2017 SUBJECTIVE: No acute events noted. The patient is still noted to be intubated and ventilator suppo rt. Plan tracheostomy is being entertained. Renal Service is following this patient due to her acute kidney injury secondary to presumed acute t ubular necrosis. Renal function continues to worsen. Most recent creatinine now is 2.97 with a BUN of 115. Please note yesterday, creatinine was 2.9. It is possible that there is some stabilizatio n in the last 24 hours with the renal function. She still makes some urine output. Of interest, he r BNP is noted at 3430. OBJECTIVE: VITAL SIGNS: Blood pressure is 140/68, heart rate is 76, respiratory rate 22, temperature is noted to be at 92, and pulse ox 96%. GENERAL: Awake, intubated on ventilator support. SKIN: Adequate turgor. HEENT: She has pinkish conjunctivae, anicteric sclerae. NECK: No neck mass, no carotid bruits, no JVD. CHEST: No deformities. LUNGS: Decreased breath sounds. No wheezing. HEART: Normal sinus rhythm. No murmur, no gallops, no rubs. ABDOMEN: Globular, soft, nontender. EXTREMITIES: Positive for edema. MEDICATIONS: Medications of 06/04/2017 was reviewed. LABORATORY DATA: On 06/04/2017, white count 10, hemoglobin 9.3, sodium 133, potassium 3.8, chloride 97, carbon dioxide 24, BUN 115, creatinine 2.97, GFR 15 mL per minute, glucose 113, phosphorus 4.9, magnesium 2.3. ALT is 110, AST 58, albumin 3.6. ASSESSMENT AND PLAN: Acute kidney injury - secondary to acute tubular necrosis. Slightly worsening renal dysfunction, but in the last 24 hours I noted some mild equilibration in the renal dysfunctio n. However, chest x-ray shows still evidence of congestive heart failure. Her urine output is stap ling somewhat, but is adequate at 30 mL per hour. She most likely has nonoliguric acute tubular nec rosis. I did discuss with the patient's son, the possibility of dialytic intervention if renal func tion continues to worsen. My plan is at least to resume back the salt poor albumin 25 grams IV q.6 together with p.r.n. Lasix. Mainly, I will give this patient Lasix 80 mg IV today as a one-time dos e and reevaluate her again tomorrow. Should the renal function further worsen as previously mention ed considered initiation of dialysis. The patient's son is aware about this. The patient is wantin g to do everything. 2. Sepsis, on IV antibiotics. 3. Elevated liver function test - for eventual plan cholecystectomy. 4. Acute respiratory failure - unable to wean off the ventilator. 5. Plan tracheostomy. Overall, agree with current management.
[2017-06-04] MEDS: Albumin 25% 25 GM/100 ML BOT IVPB SCH ×3 (12:33→23:53)
--- NOTE | 2017-06-04 13:23 | PRG-2 ---
DATE OF SERVICE: 05/20/2017 to 06/04/2017 ADMITTING PHYSICIAN: Pool Childers M.D. ADMITTING RESIDENT: Binh Moss M.D. CURRENT RESIDENT: Cole Fonseca M.D. CONSULTATIONS: 1. Dr. Luan Cordova, Pulmonology. 2. Dr. Benson Clark, Pulmonology. 3. Dr. Yo Nixon, Gastroenterology. 4. Dr. Ben Lyon, General Surgery. 5. Dr. Rafael Yusuf, Nephrology. 6. Dr. Mary Kay Cui, Cardiology. CURRENT DIAGNOSES: 1. Ventilator associated pneumonia. 2. Acute on chronic respiratory failure likely secondary to fluid overload. 3. Acute tubular necrosis on chronic kidney disease. 4. Suspected choledocholithiasis. 5. Obstipation 6. Severe physical deconditioning. 7. History of recent transcatheter aortic valve replacement. 8. Chronic anemia. CURRENT MEDICATIONS: 1. Acidophilus 1 tab daily. 2. Albumin 25 grams IV piggyback q.6 hours. 3. DuoNeb 3 mL q.4 hours scheduled. 4. Dulcolax 10 mg daily. 5. Cefepime 1 gram b.i.d., currently on day #10. 6. Plavix 75 mg daily. 7. Docusate 100 mg b.i.d. p.r.n. 8. Diflucan 100 mg daily, currently on day #6 and to be discontinued after a 7- day course. 9. Lasix 80 mg slow IV push - dosing regulated by Nephrology. 10. Heparin 5000 units subcu b.i.d. 11. Lactulose 10 grams t.i.d. 12. Synthroid 37.5 mcg daily. 13. Linezolid 600 mg daily, currently on day #7. 14. Electrolyte protocol. 15. Solu-Medrol 40 mg b.i.d. scheduled. 16. Nystatin topical powder b.i.d. p.r.n. 17. Zofran 4 mg q.6 hours p.r.n. 18. Protonix 40 mg daily. 19. MiraLax 17 grams daily. 20. Simethicone 20 mg daily. PROCEDURES: 1. Endotracheal intubation on 05/24/2017. 2. Right internal jugular central line placement on 05/27/2017. 3. Bronchoscopy on 05/26/2017 and 05/31/2017 for mucous plugging. PERTINENT LABORATORY FINDINGS: White blood cell count 10.0, trended up to 13.7 and currently back at 10.0, creatinine at the time of admission 1.65 and slowly trended up to 2.97. PERTINENT IMAGING: Transthoracic echocardiogram, normal ejection fraction of 55 %-60%. Abdominal ultrasound on 05/27/2017, positive cholelithiasis, mild to moderate dilatation of biliary tree. HISTORY OF PRESENT ILLNESS AND HOSPITAL COURSE: Ms. Escamilla is an 82-year-old female who came to the hospital with the chief complaint of severe constipation, generalized weakness and fatigue. There symptoms since started Monday prior to admission when she had fallen and her transportation service had picked her up with a gait belt. Oxygen saturation at home was low and she was requiring more than her baseline oxygen supplementation. At this time, her son brought her to the hospital for further evaluation. She was admitted for severe constipation and fecal impaction, also for mild congestive heart failure exacerbation. She was manually disimpacted in the ER and was given multiple Fleet enemas. Her abdominal distention continued to worsen over the first few days of her hospitalization. A CT scan showed heavy stool burden throughout the colon and into the cecum. A discussion was had with the patient and her son. The patient was also requiring BiPAP at this time as her abdominal distention hindered her respiratory drive. She underwent elective endotracheal intubation on 05/24/2017, so she could have an OG tube placed and received GoLYTELY as recommended by Gastroenterology. The patient eventually received 8000 mL of GoLYTELY over the next 2 days, which resolved her severe constipation. However, she developed an ileus following after her colon had been cleared. On admission, the patient had mildly elevated LFTs. They continued to trend up during the first week of her hospitalization. Discussion was had with GI whether the patient should undergo ERCP. However, given her declining heart and kidney function, it was felt that it should be awaited at a later time. AST , ALT and alkaline phosphatase peaked at 664, 314, and 249 respectively. They have been trending down over the last few days. Dr. Ben Lyon was consulted for tracheostomy tube, PEG tube, and elective laparoscopic cholecystectomy. However, at the time of this note, patient has not been medically cleared for surgery by Cardiology. In addition to her other complaints, the patient's kidney function has been steadily worsening throughout her hospitalization. Dr. Alton Yusuf from Nephrology was consulted and giving the patient salt poor albumin in an attempt to reverse her kidney function. She is also becoming recently fluid overload and has a significant net positive fluid volume or fluid intake since admission. At this time, Dr. Yusuf does not feel starting dialysis is necessary, but may need to be reconsidered and revisited in the future. Multiple conversations with the patient's son have been had regarding his mother 's long-term prognosis, which is guarded at this time. It has been explained to him multiple times that his mother is not stable enough to undergo the procedure she may need such as the PEG tube placement and cholecystectomy. He has been made well aware that his mother may require dialysis and that she may not tolerate dialysis well given her current frail state. He states that it is her wishes that everything be done to keep her alive including tracheostomy tube and PEG tube placement. At the time of this dictation, further recommendations from General Surgery and Nephrology are pending regarding her management. Again, her long-term prognosis at this time is guarded. [place]
--- NOTE | 2017-06-04 15:13 | PDOC.CTH ---
<Nasreen Riley - Last Filed: 06/04/17 15:09> Cardiology Progress Note - Subjective the pt was seen and examined. No overnight events. No cardiac complaints. She is still intubated; however, she can follow command well. She is complains of shoulder pain. - Objective Vital Signs Temp Pulse Resp BP Pulse Ox 06/04/17 14:00 13 06/04/17 12:30 74 123/59 L 06/04/17 12:25 72 19 100 06/04/17 12:00 97.7 F 13 06/04/17 10:00 17 06/04/17 08:50 72 123/64 06/04/17 08:49 72 19 99 06/04/17 08:00 97.8 F 72 16 97 06/04/17 06:00 98.2 F 13 06/04/17 04:00 13 Admit Weight 148 lb 3.186 oz Weight 198 lb 6.656 oz 06/03/17 06/04/17 06/05/17 06:59 06:59 06:59 Intake Total 1528 1899.5 650 Output Total 1043 885 305 Balance 485 1014.5 345 - Physical Examination General/Neuro: alert & oriented x3 Neck: no JVD present Lungs: other: (very diminished at bases) Heart: RRR Extremities: other: (swelling) - Telemetry Telemetry Rhythm: SR - Labs Result Diagrams: 06/04/17 03:30 06/04/17 03:30 Troponin/CKMB CK-MB (CK-2) 2.6 ng/mL (0-6.6) 05/21/17 07:21 Troponin I 0.086 ng/mL (< 0.028) H 05/21/17 12:04 - Assessment/Plan 1. Acute respiratory failure with intubation on 05/24/17 - On vent; S/P Bronchoscopy on 05/26 and 05/31 for mucous plugging; vent management per pulmonology service; possible Trach and PEG tube placement. 2. Ventilator associated pneumonia - On IV antibiotic; 3. Acute on chronic diastolic CHF exacerbation 2ndary to fluid overload - BNP yesterday was 3430; Weight gained 20 kg since admission; Lasix 80mg IV was given by Dr Yusuf yesterday; cont. monitor 4. Acute on CKD stage 3 - 2ndary to Acute tubular necrosis; on Albumin q6h and Lasix PRN; Possible Dialysis for woresning of her renal function; managed by [employer] 5. CAD with Hx of Stent in 12/2016 - stable with Plavix ; cont. monitor on tele 6. HTN - stable with current med 7. Choledocholithiasis - Liver function is slightly improved today; 8. Physical deconditioning MAR reviewed Review of Systems - Review of Systems Constitutional: reports: no symptoms reported EENTM: reports: no symptoms reported Respiratory: reports: shortness of breath Cardiac (ROS): reports: no symptoms reported ABD/GI: reports: no symptoms reported <Margarita Cui - Last Filed: 06/04/17 22:12> Cardiology Progress Note - Objective Vital Signs Temp Pulse Resp BP BP BP Pulse Ox 06/04/17 20:00 14 06/04/17 19:39 98.4 F 72 14 98 06/04/17 19:00 98.4 F 06/04/17 18:38 71 06/04/17 18:37 70 18 97 06/04/17 17:24 12 06/04/17 16:00 13 06/04/17 15:15 73 130/63 06/04/17 15:13 73 15 100 06/04/17 15:00 98.1 F 06/04/17 14:00 13 06/04/17 13:23 132/65 130/60 06/04/17 12:30 74 123/59 L 06/04/17 12:25 72 19 100 06/04/17 12:00 97.7 F 13 Admit Weight 148 lb 3.186 oz Weight 198 lb 6.656 oz 06/03/17 06/04/17 06/05/17 06:59 06:59 06:59 Intake Total 1528 1899.5 869 Output Total 1043 885 805 Balance 485 1014.5 64 - Labs Result Diagrams: 06/04/17 03:30 06/04/17 03:30 Troponin/CKMB CK-MB (CK-2) 2.6 ng/mL (0-6.6) 05/21/17 07:21 Troponin I 0.086 ng/mL (< 0.028) H 05/21/17 12:04 - Assessment/Plan Pt. seen and eval. by me. I agree with the A/P by the DIRECTOR OF SUSTAINABILITY.
--- NOTE | 2017-06-04 15:40 | PRG ---
DATE OF SERVICE: 06/04/2017 SUBJECTIVE: Ms. Escamilla remains mechanically ventilated. I met with the son and daughter in the room today. OBJECTIVE: VITAL SIGNS: Blood pressure 126/65, respiratory rate 13, heart rate in the 70s. LUNGS: Remarkable for equal bilateral breath sounds. CARDIOVASCULAR: Regular rhythm. ABDOMEN: Soft. EXTREMITIES: Without asymmetry. IMPRESSION AND PLAN: Respiratory failure with deconditioning, too weak to wean from mechanical vent ilation at this time. There are no new significant lab abnormalities today. Her pH of 7.29, CO2 of 49, pO2 of 88. Her acid base disorder is stable, most likely a result of her chronic kidney disease. BUN is up to 115 and creatinine is 2.97. It was felt by Gastroenterology that she probably needs a cholecystectomy. Everything is apparently on hold for now. She is certainly not weanable. Nothing new on her radiograph. Her radiograph just shows pulmonary edema that is very mild. She remains in positive fluid balance to the tune of about 4 liters over the last 5 days. She will eventually require dialysis, which certainly puts her at risk for infecting her prosthetic heart armand ve. As I have explained to the family, she becomes extremely complicated and if she is going to brenda vive this, it will take many, many months.
[2017-06-04] MEDS: Pantoprazole 40 MG GRANULES PACKET PER TUBE SCH (20:48)
[2017-06-05 04:50] LABS: #Lymphocytes 0.1 thou/uL (1.20-3.40); #Monocytes 0.4 thou/uL (0.11-0.59); #Neutrophils 8.7 thou/uL (1.40-6.50); %Eosinophils 0.1 % (0.0-10.0); %Lymphocytes 1.5 % (21.0-51.0); %Monocytes 3.9 % (0.0-10.0); Hematocrit 26.9 % (36.0-47.0); Red Blood Cell (RBC) Count 2.94 mill/uL (4.20-5.40); White Blood Cell (WBC) Count 9.2 thou/uL (4.8-10.8)
[2017-06-05 05:01] LABS: ALT (SGPT) 100 U/L (8-55); AST (SGOT) 53 U/L (5-34); Alkaline Phosphatase 159 U/L (40-150); Anion Gap 17 mmol/L (10-20); BUN (Urea Nitrogen) 125 mg/dL (9.8-20.1); Bilirubin, Total 2.4 mg/dL (0.2-1.2); Calc. Creatinine Clearance 20 mL/min (70-130); Calcium 9.3 mg/dL (7.8-10.44); Carbon Dioxide 24 mmol/L (23-31); Chloride 97 mmol/L (98-107); Estimated GFR-MDRD 14; Globulin 1.8 g/dL (2.4-3.5); Magnesium 2.6 mg/dL (1.6-2.6); Phosphorus 5.3 mg/dL (2.3-4.7)
[2017-06-05] MEDS: Levothyroxine Sodium 75 MCG TAB PO SCH (05:43)
[2017-06-05] MEDS: Albumin 25% 25 GM/100 ML BOT IVPB SCH ×3 (05:43→18:34)
--- NOTE | 2017-06-05 06:44 | PDOC.FM ---
- Subjective Subjective: Patient intubated, Arrousable and will follow some commands. - Objective Vital Signs & Weight: Vital Signs (12 hours) Temp Pulse Resp BP Pulse Ox 06/05/17 06:30 67 131/68 06/05/17 06:27 67 15 97 06/05/17 06:00 15 06/05/17 04:00 15 06/05/17 03:15 69 136/69 06/05/17 03:14 98 06/05/17 02:00 15 06/05/17 00:00 12 06/04/17 22:24 70 06/04/17 22:23 71 15 100 06/04/17 22:00 14 06/04/17 20:00 14 06/04/17 19:39 98.4 F 72 14 98 06/04/17 19:00 98.4 F Weight Admit Weight 67.222 kg Weight 90.3 kg Most Recent Monitor Data Heart Rate from ECG 68 NIBP 131/68 NIBP BP-Mean 77 Respiration from ECG 18 SpO2 90 I&O: 06/03/17 06/04/17 06/05/17 06:59 06:59 06:59 Intake Total 1528 1899.5 1632 Output Total 1225 834 7685 Balance 485 1014.5 382 Result Diagrams: 06/05/17 04:10 06/05/17 04:10 <Viktoria Rosales - Last Filed: 06/05/17 06:42> - Objective Vital Signs & Weight: Vital Signs (12 hours) Temp Pulse Resp BP Pulse Ox 06/05/17 10:25 66 130/68 06/05/17 10:24 66 14 97 06/05/17 08:00 98.1 F 06/05/17 06:30 67 131/68 06/05/17 06:27 67 15 97 06/05/17 06:00 15 06/05/17 04:00 15 06/05/17 03:15 69 136/69 06/05/17 03:14 98 06/05/17 02:00 15 06/05/17 00:00 12 Weight Admit Weight 67.222 kg Weight 90.3 kg Most Recent Monitor Data Heart Rate from ECG 64 NIBP 130/68 NIBP BP-Mean 79 Respiration from ECG 12 SpO2 99 I&O: 06/04/17 06/05/17 06/06/17 06:59 06:59 06:59 Intake Total 1899.5 1632 158 Output Total 885 1250 135 Balance 1014.5 382 23 Result Diagrams: 06/05/17 04:10 06/05/17 04:10 <Rhina Bravo - Last Filed: 06/05/17 10:55> Phys Exam - Physical Examination Constitutional: NAD Respiratory: no wheezing, no rales difficult exam due to habitus, Ant lung curtis clear Cardiovascular: RRR, no significant murmur Gastrointestinal: soft, non-tender hypoactive bowel sounds RLE 2+ edema <MuehrViktoria Tristan - Last Filed: 06/05/17 06:42> Dx/Plan (1) Acute respiratory failure Code(s): J96.00 - ACUTE RESPIRATORY FAILURE, UNSP W HYPOXIA OR HYPERCAPNIA Status: Chronic Qualifiers: Respiratory failure complication: hypoxia Qualified Code(s): J96.01 - Acute respiratory failure with hypoxia Plan: intubated on 05/26/17 - awaiting possible trach and peg - unwweanable from vent per pulmonology. (2) Ventilator associated pneumonia Code(s): J95.851 - VENTILATOR ASSOCIATED PNEUMONIA Status: Acute Plan: bronch lavage growing MRSA, psuedomonas, lactobacillus, corynebacterium - cefepime day 11, linezolid day 7, diflucan day 7 (3) [id number] kidney injury Code(s): N17.9 - ACUTE KIDNEY FAILURE, UNSPECIFIED; N18.9 - CHRONIC KIDNEY DISEASE, UNSPECIFIED Status: Acute Plan: management per nephrology. PRN lasix. likely will require dialysis. (4) CHF exacerbation Code(s): I50.9 - HEART FAILURE, UNSPECIFIED Status: Suspected Qualifiers: Congestive heart failure type: unspecified congestive heart failure type Qualified Code(s): I50.9 - Heart failure, unspecified Plan: significant fluid overload, likely will require dialysis. (5) Choledocholithiasis Code(s): K80.50 - CALCULUS OF BILE DUCT W/O CHOLANGITIS OR CHOLECYST W/O OBST Status: Acute Plan: possible lap elian however not cleared for surgery. (6) Elevated LFTs Code(s): R79.89 - OTHER SPECIFIED ABNORMAL FINDINGS OF BLOOD CHEMISTRY Status : Acute (7) Constipation Code(s): K59.00 - CONSTIPATION, UNSPECIFIED Status: Acute Qualifiers: Constipation type: slow transit constipation Qualified Code(s): K59.01 - Slow transit constipation (8) Physical deconditioning Code(s): R53.81 - OTHER MALAISE Status: Acute <Viktoria Rosales - Last Filed: 06/05/17 06:42> Attending Addendum - Attending Addendum I personally evaluated the patient and discussed the management with Dr. Rosales I agree with the History, Examination, Assessment and Plan documented above with any addition or exceptions noted below- Patient intubated; rsponds to commands. Afebrile VSS A/P: 1) Resp failure- continue vent support; wean as tolerated per pulmonary, 2) Acute on chronic diastolic heart failure- volume overload; judicious diuretics as per renal, 3) Acute on chronic renal failure- no significant improvement; continue to monitor; plans as per renal, 4) Ventilator assoc pneumonia- continue abx and diflucan. <Rhina Bravo - Last Filed: 06/05/17 10:55>
[2017-06-05 07:05] LABS: Oxyhemoglobin 94.6 % (94.0-97.0); Sodium 133 mmol/L (135-148)
[2017-06-05 07:11] LABS: Mechanical Tidal Volume 450 ml; Modified Allen's Test POSITIVE; Pressure Support 10 cmH2O; Vent YES
[2017-06-05 07:12] LABS: Mode PSIMV
--- NOTE | 2017-06-05 08:34 | RAD ---
AP VIEW OF THE CHEST: INDICATION: History of intubation. COMPARISON: Prior exam dated 06/04/17 at 4:58 a.m. IMPRESSION: The examination is not appreciably changed from the comparison study. COMMENTS: Right IJ central venous catheter, ET tube, gastric catheter, cardiomegaly, and pulmonary vascular co ngestion stable. Small bilateral pleural effusions persist. No pneumothorax is evident. POS: [facility]
[2017-06-05] MEDS: DEXTROSE 5% IVPB SCH ×4 (09:28→22:05)
[2017-06-05] MEDS: WATER IVPB SCH ×4 (09:28→22:05)
[2017-06-05] MEDS: AMIODARONE HCL IVPB SCH ×4 (09:28→22:05)
--- NOTE | 2017-06-05 09:36 | PRG ---
DATE OF SERVICE: 06/05/2017 SUBJECTIVE: The patient is clinically unchanged, she has been intubated on ventilator support. Planned tracheostomy possibly in a.m. Renal function continues to worsen. The patient has been giv en a 1 time dose of Lasix yesterday, but the patient remains unimproved. The last 24-hour urine out put was noted at 1.2 liters. Please note I have restarted her back on salt poor albumin. Due to th e worsening renal dysfunction my bias is probably to initiate dialysis. I did discuss this with the patient's son. PHYSICAL EXAMINATION: VITAL SIGNS: Blood pressure is 133/68, heart rate 67, respiratory rate 13, pulse ox 97%. GENERAL: Noted to be awake, intubated on ventilator support. SKIN: Adequate turgor. HEENT: Slightly pale conjunctivae, anicteric sclerae. NECK: No neck mass, no carotid bruits, no JVD. CHEST: No deformities. LUNGS: Decreased breath sounds. HEART: Normal sinus rhythm. No murmur, no gallops or rubs. ABDOMEN: Globular, soft, nontender, no masses. EXTREMITIES: No edema, no deformities. Chest x-ray of 06/05/2017, evidence of CHF. LABORATORY: 06/05/2017 - White count 9.2, hemoglobin 8.8, sodium 134, potassium 3.8, chloride 97, c arbon dioxide 24, BUN 125, creatinine 2.14, GFR 14 mL per minute. Calcium 9.3, phosphorus 5.3, AST 53, ALT 100. Albumin is 4.2. ASSESSMENT AND PLAN: 1. Acute kidney injury - secondary to acute tubular necrosis, unimproved. Urine output is acceptab le - she most likely has nonoliguric acute tubular necrosis. Due to the inadequate diuresis, my ying s is to initiate dialysis with this patient. I have written a consult for placement of a dialysis c atheter while the patient will have a tracheostomy done tomorrow. Overall, prognosis remains guarde d. 2. Acute respiratory failure, unable to wean off for planned tracheostomy. Case discussed at length with the house staff and the patient's son.
[2017-06-05] MEDS: Lactinex Tablet PO SCH (09:42)
[2017-06-05] MEDS: Clopidogrel Bisulfate 75 MG TAB PO SCH (09:42)
[2017-06-05] MEDS: Fluconazole 100 MG TAB PO SCH (09:42)
[2017-06-05] MEDS: Heparin 5,000 UNITS/ML VIAL SC SCH ×2 (09:43→22:49)
[2017-06-05] MEDS: Polyethylene Glycol 3350 17 GM Packet PER TUBE SCH (09:43)
[2017-06-05] MEDS: Linezolid 600 MG in Premix Bag 1 BAG IVPB SCH ×2 (09:48→22:43)
--- NOTE | 2017-06-05 11:46 | PRG ---
DATE OF SERVICE: 06/05/2017 Esthela Escamilla is awake. She is very weak. PHYSICAL EXAMINATION: VITAL SIGNS: She is afebrile. Heart rate in the 60s, blood pressure 130/68, respiratory rate 14. LUNGS: Lungs are remarkable for equal breath sounds. HEART: Regular rhythm. ABDOMEN: Abdomen is soft. EXTREMITIES: Without asymmetry. She is not guarding on exam . Small effusions were seen on her x-ray, no alveolar infiltrates are s een. LABORATORY DATA: White count 9.2, hemoglobin 8.8, platelets 142, sodium 134, potassium 3.8, chlorid e 97, bicarbonate 24, BUN 125, creatinine 3.14, alkaline phosphatase 159, ALT is 100, AST is 53, alb umin 4.2. IMPRESSION: 1. Respiratory failure. 2. Prerenal azotemia. 3. Status post transcutaneous aortic valve replacement. 4. Ongoing positive fluid balance with progressive prerenal azotemia. I am told Dr. Yusuf wants a di alysis catheter placed in the near future. 5. ? Biliary obstruction with cholelithiasis. Dr. Lyon and I discussed Ms. Escamilla and he does not f eel he can safely operate on her gallbladder, so the only possible procedure would be percutaneous d rainage if indicated. She can be fed through a Dobbhoff tube. At this point in time, given her multiple medical problems and frail state, the simplest and easiest procedure is probably the only indicated procedure at this time which would be a tracheostomy. We can feed her through a Dobbhoff tube, then we can decide at a later date whether or not she needs a percutaneous drainage of her gallbladder or bile duct if jessie beverly appears to have progressive obstruction. Critical care time was 30 minutes.
[2017-06-05] MEDS: Cefepime 1 GM in Sodium Chloride 0.9% 100 ML IVPB SCH (12:20)
[2017-06-05] MEDS: Pantoprazole 40 MG GRANULES PACKET PER TUBE SCH (22:49)
[2017-06-06] MEDS: Albumin 25% 25 GM/100 ML BOT IVPB SCH ×3 (00:05→12:09)
[2017-06-06 04:52] LABS: #Lymphocytes 0.2 thou/uL (1.20-3.40); #Monocytes 0.2 thou/uL (0.11-0.59); #Neutrophils 10.2 thou/uL (1.40-6.50); %Basophils 0.1 % (0.0-1.0); %Eosinophils 0.1 % (0.0-10.0); %Lymphocytes 1.5 % (21.0-51.0); %Monocytes 2.3 % (0.0-10.0); Hematocrit 26.3 % (36.0-47.0); Red Blood Cell (RBC) Count 2.88 mill/uL (4.20-5.40); White Blood Cell (WBC) Count 10.7 thou/uL (4.8-10.8)
[2017-06-06 05:38] LABS: ALT (SGPT) 81 U/L (8-55); AST (SGOT) 33 U/L (5-34); Alkaline Phosphatase 133 U/L (40-150); Anion Gap 19 mmol/L (10-20); Bilirubin, Total 2.3 mg/dL (0.2-1.2); Calc. Creatinine Clearance 19 mL/min (70-130); Calcium 9.4 mg/dL (7.8-10.44); Carbon Dioxide 23 mmol/L (23-31); Chloride 96 mmol/L (98-107); Estimated GFR-MDRD 13; Globulin 1.6 g/dL (2.4-3.5); Magnesium 2.5 mg/dL (1.6-2.6); Phosphorus 5.4 mg/dL (2.3-4.7); Protein, Total 6.1 g/dL (6.0-8.3)
[2017-06-06 05:49] LABS: BUN (Urea Nitrogen) 124 mg/dL (9.8-20.1)
--- NOTE | 2017-06-06 06:37 | PDOC.FM ---
- Subjective Subjective: Patent resting comfortably but is easily arrousable. She is intubated but not sedated. - Objective Vital Signs & Weight: Vital Signs (12 hours) Temp Pulse Resp BP Pulse Ox 06/06/17 06:26 67 149/70 H 06/06/17 06:24 67 13 96 06/06/17 02:50 64 16 96 06/06/17 02:00 13 06/06/17 00:00 13 06/05/17 22:00 13 06/05/17 21:35 70 16 96 06/05/17 20:00 98.5 F 76 14 96 06/05/17 19:00 98.5 F Weight Admit Weight 67.222 kg Weight 90.3 kg Most Recent Monitor Data Heart Rate from ECG 66 NIBP 132/66 NIBP BP-Mean 75 Respiration from ECG 14 SpO2 94 I&O: 06/04/17 06/05/17 06/06/17 06:59 06:59 06:59 Intake Total 1899.5 1632 1507.5 Output Total 885 1250 782 Balance 1014.5 382 725.5 Result Diagrams: 06/06/17 04:00 06/06/17 04:00 <Viktoria Rosales - Last Filed: 06/06/17 09:16> - Objective Vital Signs & Weight: Vital Signs (12 hours) Temp Pulse Resp BP Pulse Ox 06/06/17 10:00 14 06/06/17 08:00 98.4 F 64 14 96 06/06/17 07:00 98.4 F 06/06/17 06:26 67 149/70 H 06/06/17 06:24 67 13 96 06/06/17 06:00 12 06/06/17 04:00 12 06/06/17 02:50 64 16 96 06/06/17 02:00 13 06/06/17 00:00 13 Weight Admit Weight 67.222 kg Weight 91 kg Most Recent Monitor Data Heart Rate from ECG 63 NIBP 124/59 NIBP BP-Mean 95 Respiration from ECG 11 SpO2 94 I&O: 06/05/17 06/06/17 06/07/17 06:59 06:59 06:59 Intake Total 1632 1507.5 500 Output Total 1250 922 155 Balance 382 585.5 345 Result Diagrams: 06/06/17 04:00 10/10/17 04:00 <Rhina Bravo - Last Filed: 06/06/17 11:16> Phys Exam - Physical Examination Constitutional: NAD Respiratory: no wheezing, no rales Cardiovascular: RRR Gastrointestinal: soft, no distention, positive bowel sounds (normal active ) patient grimaces when abdomen palpated, worse in RUQ 4+ pitting edema in BLE Neurological: non-focal FOLLOWS COMMANDS Deviation from normal: multiple bruised areas over bilateral arms -: multiple hematomas at various stages of healing. <ConnieViktoria A - Last Filed: 06/06/17 09:16> Dx/Plan (1) Acute respiratory failure Code(s): J96.00 - ACUTE RESPIRATORY FAILURE, UNSP W HYPOXIA OR HYPERCAPNIA Status: Chronic Qualifiers: Respiratory failure complication: hypoxia Qualified Code(s): J96.01 - Acute respiratory failure with hypoxia Plan: intubated on 05/26/17 - plan for trach today - unwweanable from vent per pulmonology. (2) Ventilator associated pneumonia Code(s): J95.851 - VENTILATOR ASSOCIATED PNEUMONIA Status: Acute Plan: bronch lavage growing MRSA, psuedomonas, lactobacillus, corynebacterium - cefepime day 12, linezolid day 8 7 day diflucan course complete (3) Qwjne-yf-ymytvuc kidney injury Code(s): N17.9 - ACUTE KIDNEY FAILURE, UNSPECIFIED; N18.9 - CHRONIC KIDNEY DISEASE, UNSPECIFIED Status: Acute Plan: Plan for dialysis later today after catheter placed. (4) CHF exacerbation Code(s): I50.9 - HEART FAILURE, UNSPECIFIED Status: Suspected Qualifiers: Congestive heart failure type: unspecified congestive heart failure type Qualified Code(s): I50.9 - Heart failure, unspecified Plan: significant fluid overload with poor urine outp[ut. one time dose of lasix did not yield great output. Plan for dialysis today after catheter placed. (5) Choledocholithiasis Code(s): K80.50 - CALCULUS OF BILE DUCT W/O CHOLANGITIS OR CHOLECYST W/O OBST Status: Acute Plan: poor candidate for surgery, LFTs normalizing, bilirubin remains elevated. Surgery following. (6) Elevated LFTs Code(s): R79.89 - OTHER SPECIFIED ABNORMAL FINDINGS OF BLOOD CHEMISTRY Status : Acute (7) Constipation Code(s): K59.00 - CONSTIPATION, UNSPECIFIED Status: Acute Qualifiers: Constipation type: slow transit constipation Qualified Code(s): K59.01 - Slow transit constipation Plan: 2 bowel movements overnight, normal active bowel sounds (8) Physical deconditioning Code(s): R53.81 - OTHER MALAISE Status: Acute Plan: Patient is very weak. Family wants to cont with all interventions <Viktoria Rosales - Last Filed: 06/06/17 09:16> Attending Addendum - Attending Addendum I personally evaluated the patient and discussed the management with Dr. Rosales I agree with the History, Examination, Assessment and Plan documented above with any addition or exceptions noted below- Patient intubated; opens eyes and responds. Afebrile VSS. A/P: 1) Nonolguric ATN- no improvment; plan for placement of dialysis catheter today and begin dialysis as per renal. 2) Acute respiratory failure- unable to be weaned at this time due to volume overload/ positive fluid balance; will wean as tolerated once fluid status is improved. 3 ) Vent associated pneumonia- continue IV abx <Rhina Bravo - Last Filed: 06/06/17 11:16>
--- NOTE | 2017-06-06 08:49 | RAD ---
ONE VIEW CHEST: Comparison: 06-05-17 History: Respiratory distress. Ventilated patient. FINDINGS: Stable atherosclerosis. Re-demonstration of endotracheal and nasogastric tubes as well as right side d central venous catheter. There is persistent cardiomegaly. Interstitial and alveolar opacification are noted. Small effusion identified. Stable stent projecting over the cardiac silhouette. IMPRESSION: 1. Cardiomegaly. 2. Congestive heart failure. 3. Superimposed infiltrate cannot be excluded. Continued surveillance. 4. Atherosclerosis of the aorta. POS: [facility]
--- NOTE | 2017-06-06 09:23 | PRG ---
DATE OF SERVICE: 06/06/2017 SUBJECTIVE: Ms. Escamilla is an 82-year-old white female being followed by the Renal Service for acute k idney injury secondary to presumed acute tubular necrosis. Renal function remains unimproved. She also has some degree of volume overload. For this reason, I have discussed the case with the family and staff. We will proceed with dialysis once the dialysis catheter is available. This will be pl aced today. Surgery has been consulted. No acute events noted last night. OBJECTIVE: VITAL SIGNS: Blood pressure 149/70, heart rate 67, respiratory rate 13, pulse ox 96%. GENERAL: Patient is awake, intubated on ventilator support. SKIN: Adequate turgor. HEENT: Slightly pale conjunctivae, anicteric sclerae. NECK: No neck mass, no carotid bruits, no JVD. CHEST: No deformities. LUNGS: Decreased breath sounds. HEART: Normal sinus rhythm. No murmur, no gallops, no rubs. ABDOMEN: Globular, soft, nontender. EXTREMITIES: Trace edema. MEDICATIONS: 06/06/2017 - Reviewed. LABORATORY: 06/06/2017 - Sodium 134, potassium 3.8, chloride 96, carbon dioxide 23, BUN 124, creati nine 3.3, glucose 111, calcium 9.4, phosphorus 5.4, magnesium 2.5, AST 33, ALT 81, albumin 4.5. ASSESSMENT AND PLAN: 1. Acute kidney injury on top of her chronic renal failure - superimposed acute tubular necrosis, u nimproved. The patient has a nonoliguric acute tubular necrosis, unimproved in spite of conservativ e management of salt poor albumin and Lasix. We will proceed with dialytic intervention. Case disc ussed at length with the patient's son. He tells me he has the power of research attorney. Overall, prognos is remains guarded with this patient. Awaiting placement of dialysis catheter. I plan to do 1 hour hemodialysis with this patient today and do a subsequent incremental increase of 1 hour each day fo r the next 4 days. 2. Acute respiratory failure - the patient could not be weaned. A planned tracheostomy is being do ne today.
[2017-06-06] MEDS: WATER IVPB SCH ×4 (09:38→21:09)
[2017-06-06] MEDS: AMIODARONE HCL IVPB SCH ×4 (09:38→21:09)
[2017-06-06] MEDS: DEXTROSE 5% IVPB SCH ×4 (09:38→21:09)
[2017-06-06] MEDS: Linezolid 600 MG in Premix Bag 1 BAG IVPB SCH ×2 (09:38→21:10)
[2017-06-06] MEDS ORDERED: Fentanyl 100 MCG/2 ML VIAL ONE (14:04)
[2017-06-06] MEDS ORDERED: Bupivacaine HCl 0.5%/Epinephrine 1:200,000/PF 30 ml Vial ONE (14:18)
[2017-06-06] MEDS ORDERED: Sodium Chloride 0.9% 0 ML ONE (14:38)
[2017-06-06] MEDS ORDERED: ePHEDrine/0.9% NaCl/PF SYRINGE 50 mg/10 ml ONE (14:46)
--- NOTE | 2017-06-06 16:46 | PRG ---
DATE OF SERVICE: 06/06/2017 SUBJECTIVE: Esthela Escamilla did well overnight. She is tentatively on the schedule for tracheostomy today. OBJECTIVE: VITAL SIGNS: Respiratory rate is in the teens, heart rate in the 60s, blood pressure 119/57. LUNGS : Remarkable for equal breath sounds. HEART: Regular rhythm. ABDOMEN: Soft. LABORATORY DATA: White count 10.7, hemoglobin 8.6 and platelets 118,000. Sodium 134, potassium 3.8 , chloride 96, bicarbonate 23, BUN 124 and creatinine 3.3. IMPRESSION: 1. Respiratory failure for tracheostomy. 2. Renal failure for dialysis catheter placement. 3. ? choledocholithiasis being followed by Gastrointestinal and General Surgery. 4. Status post transcatheter aortic valve replacement. 5. Extreme deconditioning. Functionally, she is 10-15 years older than her age at this point. PLAN: Continue full supportive care per family wishes. Eventually, she will need LTAC placement.
--- NOTE | 2017-06-06 17:54 | OP ---
PREOPERATIVE DIAGNOSES: Prolonged ventilatory dependency, renal failure. SURGEON: Ben Lyon M.D. PROCEDURES PERFORMED: Tracheostomy placement, temporary dialysis catheter placement. INDICATIONS: The patient is an 82-year-old female who has been here for over 2 weeks, unable to wea n from the ventilator. Also has developed renal failure and will need dialysis. FINDINGS: A Trialysis catheter was placed in the right femoral vein. A #8 Shiley tracheostomy tube was placed. DESCRIPTION OF THE PROCEDURE: After informed consent was obtained, the patient was taken to the ope rating room and given general endotracheal anesthesia. She was placed in the supine position. Her shoulders were propped up to extend her neck. Neck was prepped and draped in the usual fashion. Lo mihir anesthesia infiltrated subcutaneously and deep. A transverse cervical incision was performed 2 cm above the base of the sternal notch. The subcu divided sharply. The strap muscles were divided in the midline and retracted laterally. The trachea was isolated with interrupted 2-0 Prolene sutur e. The trachea was incised with an 11 blade. The tracheal was inserted. The endotracheal t ube visualized and under direct vision, it was removed. The #8 Shiley tracheostomy tube was then in serted under direct vision connected by the racing adapter to the ventilator. Good CO2 return. Hem ostasis was assured. The balloon was inflated. A sterile bandage applied and the cervical collar r etaining strap was placed. Then, her right groin was prepped and draped in the usual fashion. Loca l anesthesia infiltrated subcutaneously and deep. An introducer needle inserted with good backflow of venous blood. J-wire threaded easily. The skin was incised. The dilators used. The catheter w as inserted over the wire. The wire removed. Each of the ports aspirated. Good backflow of venous blood, flushed with saline. The catheter was sutured in place with 3-0 silk sutures. Sterile band age applied. The patient tolerated the procedure well and transferred to ICU in serious but stable condition.
[2017-06-06] MEDS: Levothyroxine Sodium 75 MCG TAB PO SCH (18:15)
[2017-06-06] MEDS: Lactinex Tablet PO SCH (18:15)
[2017-06-06] MEDS: Clopidogrel Bisulfate 75 MG TAB PO SCH (18:15)
[2017-06-06] MEDS: Polyethylene Glycol 3350 17 GM Packet PER TUBE SCH (18:16)
--- NOTE | 2017-06-06 19:29 | RAD ---
KUB: 06/06/17 INDICATION: Dobhoff feeding tube placement. FINDINGS: Since the comparison dated 05/29/17, there has been interval placement of the gastric catheter with t he Dobhoff feeding tube. Dobhoff feeding tube tip projects in the region of the gastric body. There is a right femoral dialysis catheter present projecting in the region of the IVC. There are numerous gas filled loops of small and large bowel seen within the central abdomen. IMPRESSION: Dobhoff feeding tube tip seen within the region of the gastric body. POS: [facility]
[2017-06-06] MEDS: Pantoprazole 40 MG GRANULES PACKET PER TUBE SCH (21:10)
[2017-06-07 04:27] LABS: ALT (SGPT) 60 U/L (8-55); AST (SGOT) 26 U/L (5-34); Alkaline Phosphatase 113 U/L (40-150); Anion Gap 15 mmol/L (10-20); BUN (Urea Nitrogen) 124 mg/dL (9.8-20.1); Bilirubin, Total 2.3 mg/dL (0.2-1.2); Calc. Creatinine Clearance 20 mL/min (70-130); Calcium 8.9 mg/dL (7.8-10.44); Carbon Dioxide 25 mmol/L (23-31); Chloride 96 mmol/L (98-107); Estimated GFR-MDRD 14; Globulin 1.3 g/dL (2.4-3.5); Magnesium 2.2 mg/dL (1.6-2.6); Phosphorus 4.8 mg/dL (2.3-4.7); Protein, Total 5.3 g/dL (6.0-8.3)
[2017-06-07 04:36] LABS: #Lymphocytes 0.2 thou/uL (1.20-3.40); #Monocytes 0.3 thou/uL (0.11-0.59); #Neutrophils 13.4 thou/uL (1.40-6.50); %Eosinophils 0.1 % (0.0-10.0); %Lymphocytes 1.1 % (21.0-51.0); %Monocytes 2.2 % (0.0-10.0); Hematocrit 22.7 % (36.0-47.0); Mean Platelet Volume 11.5 fL (7.4-10.4); White Blood Cell (WBC) Count 13.9 thou/uL (4.8-10.8)
[2017-06-07] MEDS: Levothyroxine Sodium 75 MCG TAB PO SCH (05:42)
--- NOTE | 2017-06-07 06:36 | PDOC.FM ---
- Subjective Subjective: Patient is intubated without sedation. She follows commands but is very weak. She denies abdominal pain until palpation. - Objective Vital Signs & Weight: Vital Signs (12 hours) Temp Pulse Resp Pulse Ox 06/07/17 06:32 62 13 97 06/07/17 06:00 15 06/07/17 04:00 98.7 F 15 06/07/17 02:50 62 15 98 06/07/17 02:00 15 06/07/17 00:00 98.3 F 15 06/06/17 22:11 62 15 99 06/06/17 22:00 15 06/06/17 20:00 98.4 F 67 15 98 Weight Admit Weight 67.222 kg Weight 89.8 kg Most Recent Monitor Data Heart Rate from ECG 63 NIBP 114/54 NIBP BP-Mean 100 Respiration from ECG 17 SpO2 97 I&O: 06/05/17 06/06/17 06/07/17 06:59 06:59 06:59 Intake Total 1632 1507.5 1098 Output Total 1250 922 734 Balance 382 585.5 364 Result Diagrams: 06/07/17 03:40 06/07/17 03:40 <Viktoria Rosales - Last Filed: 06/07/17 11:10> - Objective Vital Signs & Weight: Vital Signs (12 hours) Temp Pulse Resp BP Pulse Ox 06/07/17 18:50 123 H 22 H 97 06/07/17 18:00 21 H 06/07/17 16:00 98.0 F 14 06/07/17 14:47 122 H 99/64 06/07/17 14:41 116 H 19 98 06/07/17 14:00 20 06/07/17 12:00 14 06/07/17 11:00 97.4 F L 06/07/17 10:38 118 H 116/76 06/07/17 10:37 120 H 17 97 06/07/17 10:00 18 Weight Admit Weight 67.222 kg Weight 89.8 kg Most Recent Monitor Data Heart Rate from ECG 108 NIBP 104/70 NIBP BP-Mean 90 Respiration from ECG 19 SpO2 97 I&O: 06/06/17 06/07/17 06/08/17 06:59 06:59 06:59 Intake Total 1507.5 1098 887 Output Total 922 734 85 Balance 585.5 364 802 Result Diagrams: 06/07/17 03:40 06/07/17 03:40 <Rhina Bravo - Last Filed: 06/07/17 21:14> Phys Exam - Physical Examination HEENT: PERRLA, moist MMs trach in place Respiratory: no wheezing rhonchi bilaterally Cardiovascular: RRR, no significant murmur Gastrointestinal: soft tender to palpation diffusely, hyperactive bowel sounds 4 + pitting edema in BLE Neurological: moves all 4 limbs no focal deficits noted although very weak, follows commands Skin: no rash Deviation from normal: bilateral arm bruises and hematomas <Viktoria Rosales - Last Filed: 06/07/17 11:10> Dx/Plan (1) Acute respiratory failure Code(s): J96.00 - ACUTE RESPIRATORY FAILURE, UNSP W HYPOXIA OR HYPERCAPNIA Status: Chronic Qualifiers: Respiratory failure complication: hypoxia Qualified Code(s): J96.01 - Acute respiratory failure with hypoxia (2) Ventilator associated pneumonia Code(s): J95.851 - VENTILATOR ASSOCIATED PNEUMONIA Status: Acute Plan: (3) Ngiau-nr-hkagiha kidney injury Code(s): N17.9 - ACUTE KIDNEY FAILURE, UNSPECIFIED; N18.9 - CHRONIC KIDNEY DISEASE, UNSPECIFIED Status: Acute Plan: (4) CHF exacerbation Code(s): I50.9 - HEART FAILURE, UNSPECIFIED Status: Suspected Qualifiers: Congestive heart failure type: unspecified congestive heart failure type Qualified Code(s): I50.9 - Heart failure, unspecified Plan: (5) Choledocholithiasis Code(s): K80.50 - CALCULUS OF BILE DUCT W/O CHOLANGITIS OR CHOLECYST W/O OBST Status: Acute (6) Elevated LFTs Code(s): R79.89 - OTHER SPECIFIED ABNORMAL FINDINGS OF BLOOD CHEMISTRY Status : Acute (7) Constipation Code(s): K59.00 - CONSTIPATION, UNSPECIFIED Status: Acute Qualifiers: Constipation type: slow transit constipation Qualified Code(s): K59.01 - Slow transit constipation (8) Physical deconditioning Code(s): R53.81 - OTHER MALAISE Status: Acute - Plan Plan: Respiratory failure s/p trach placement- too weak to wean from vent. acute on chronic renal failure s/p trialysis catheter placement. First dialysis session initiated and just over liter removed. VAP- bronch lavage growing MRSA, psuedomonas, lactobacillus, corynebacterium - cefepime day 13, linezolid day 9, 7 day diflucan course complete acute on chronic CHF exacerbation- minimal response to lasix, now on dialysis abdominal tenderness- concern for postoperative ileus, cont to monitor and imaging if worsens. choledocholithiasis- not currently able to undergo surgery however cont to monitor for worsening, gen surg following severe physical deconditioning- long recovery period and will require placement in LTAC facility <Viktoria Rosales - Last Filed: 06/07/17 11:10> Attending Addendum - Attending Addendum I personally evaluated the patient and discussed the management with Dr. Rosales. I agree with the History, Examination, Assessment and Plan documented above with any addition or exceptions noted below- Patient intubated. Awake/alert; responds to commands. Afebrile VSS A/P: 1) Respiratory failure-s/p trach- continue vent support. 2) Acute tubular necrosis- continue HD. 3) Vent associated penumonia-continue abx. <Rhina Bravo - Last Filed: 06/07/17 21:14>
[2017-06-07] MEDS ORDERED: DOPamine 400 MG/D5W 250 ML 250 ML ONE (08:01)
[2017-06-07] MEDS ORDERED: Norepinephrine 8 MG/0.9% NS 250 ML ONE (08:42)
[2017-06-07] MEDS ORDERED: Norepinephrine 8 MG/0.9% NS 250 ML IVPB SCH (08:45)
[2017-06-07] MEDS ORDERED: Pancrelipase DR 12000 1 CAP PO SCH (08:45)
[2017-06-07] MEDS ORDERED: Sodium Bicarbonate Tab 325 MG TAB PER TUBE SCH (08:45)
[2017-06-07] MEDS ORDERED: DOPamine 400 MG/D5W 250 ML 250 ML IVPB SCH (08:45)
[2017-06-07] MEDS: WATER IVPB SCH ×4 (08:50→22:17)
[2017-06-07] MEDS: AMIODARONE HCL IVPB SCH ×4 (08:50→22:17)
[2017-06-07] MEDS: DEXTROSE 5% IVPB SCH ×4 (08:50→22:17)
[2017-06-07] MEDS: Polyethylene Glycol 3350 17 GM Packet PER TUBE SCH (09:08)
--- NOTE | 2017-06-07 09:18 | RAD ---
AP CHEST: Indication: Intubation. Comparison: 06-06-17 IMPRESSION: There is worsening central edema and bilateral pulmonary vascular congestion. Moderate cardiomegaly persists. There is persistent left sided pleural parenchymal opacity. Small right pleural effusion r emains. No pneumothorax is evident. Tracheostomy tube, right subclavian central venous catheter are not appreciably changed. There has been interval placement of a feeding tube projecting over the lob e of the left hemidiaphragm and beyond the field of view. POS: [facility]
--- NOTE | 2017-06-07 09:32 | PRG ---
DATE OF SERVICE: 06/07/2017. SUBJECTIVE: Ms. Esthela Escamilla is an 82-year-old white female who is being followed up by the Renal Service for her acute kidney injury secondary to acute tubular necrosis. We have initiated dialysis due to volume overload with this patient and worsening renal function. A dialysis catheter was jaquelin madalyn in the right femoral vein. She is undergoing hemodialysis. We dialyzed her yesterday. I am cu rrently at the bedside supervising her dialysis. We are attempting to remove 2 liters of fluid with this patient as tolerated. However, blood pressure was noted to be on the low side. For this reas on, we initially started on dopamine, but she became tachycardic and we replaced it with Levophed. Currently, she is on the Levophed treatment, maintaining BP to about 90-100 systolic. I also decide d to give her 1 unit of packed RBC. Please note she is status post tracheostomy. PHYSICAL EXAMINATION: VITAL SIGNS: Blood pressure currently 107/55, heart rate 61, respiratory rate 14, pulse ox 95%. GENERAL: The patient is sedated on vent support. SKIN: Adequate turgor. HEENT: Pale conjunctivae. Anicteric sclerae. Positive for tracheostomy. LUNGS: Decreased breath sounds. HEART: Normal sinus rhythm. No murmur, no gallops, no rubs. ABDOMEN: Globular, soft, nontender. EXTREMITIES: Trace edema. MEDICATIONS: 06/07/2017 - Reviewed. LABORATORY: 06/07/2017 - White count 13.9, hemoglobin 7.6. Sodium 132, potassium 3.7, chloride 96, carbon dioxide 25, BUN 124, creatinine 3.1, glucose 117, phosphorus 4.8, magnesium 2.2, AST 26, ALT 60, albumin 4.0. ASSESSMENT AND PLAN: 1. Acute kidney injury - secondary to acute tubular necrosis. Continue supportive dialysis. Our p joe is to maintain her on daily dialysis for the next several days. I will attempt an eventual 4-ho ur dialysis treatment as tolerated by this patient and then place her back on 3 times a week dialysi s regimen. 2. Sepsis syndrome - on empiric IV antibiotics. 3. Acute respiratory failure. I am trying to max out fluid removal so that the patient can eventua lly be weaned off from her ventilator. Overall, prognosis remains guarded.
--- NOTE | 2017-06-07 11:17 | PDOC.EVN ---
Event Note - Event Note Event Note: Code Status change I had a discussion at bedside with son and patient. They are both in agreement to not do chest compressions in the event of cardiac arrest. Patient currently ventilated on trach however has been able to appropriately shake head in response to questions. She has been off sedation for several days. She is in agreement to continue with dialysis.
[2017-06-07] MEDS: Linezolid 600 MG in Premix Bag 1 BAG IVPB SCH ×3 (11:23→22:17)
[2017-06-07] MEDS: Clopidogrel Bisulfate 75 MG TAB PO SCH (11:29)
[2017-06-07] MEDS: Lactinex Tablet PO SCH (11:29)
[2017-06-07 13:45] LABS: Prothrombin Time 16.6 SEC (12.0-14.7)
--- NOTE | 2017-06-07 15:56 | PRG ---
DATE OF SERVICE: 06/07/2017 SUBJECTIVE: Ms. Escamilla had her tracheostomy. She is oozing from her tracheostomy site. She has been given platelets today. She is still oozing. Surgeon is being notified. Her coag studies are unremarkable. OBJECTIVE: VITAL SIGNS: Her blood pressure 116/76, heart rate is 108, respiratory rate is 18. LUNGS: Clear. HEART: Regular rhythm. ABDOMEN: Soft. EXTREMITIES: Without asymmetry. Cannot really successfully wean her from mechanical ventilation with her tracheal bleeding at this p oint in time, so we will continue with current mechanical ventilatory settings. LABORATORY DATA: Hemoglobin was 7.6 this morning. She will likely need blood. Her creatinine is 3 .1, her BUN is 124, potassium is 3.7. IMPRESSION: 1. Respiratory failure associated with weakness and deconditioning. 2. Acute renal failure on chronic kidney disease. 3. Status post transcutaneous aortic valve replacement. 4. Obesity. 5. Status post tracheostomy with oozing around her tracheostomy orifice. She is now a do not resuscitate patient, which I feel is appropriate. I think the chances of functi onal recovery, as relayed to the son, are extremely low even with long-term acute care.
[2017-06-07] MEDS ORDERED: Sodium Chloride 0.9% 500 ML IVPB PRN (20:26)
[2017-06-07] MEDS: Pantoprazole 40 MG GRANULES PACKET PER TUBE SCH (22:18)
[2017-06-08] MEDS: Levothyroxine Sodium 75 MCG TAB PO SCH (05:07)
[2017-06-08 05:08] LABS: ALT (SGPT) 62 U/L (8-55); AST (SGOT) 26 U/L (5-34); Alkaline Phosphatase 146 U/L (40-150); Anion Gap 17 mmol/L (10-20); BUN (Urea Nitrogen) 102 mg/dL (9.8-20.1); Bilirubin, Total 2.4 mg/dL (0.2-1.2); Calc. Creatinine Clearance 24 mL/min (70-130); Carbon Dioxide 24 mmol/L (23-31); Chloride 98 mmol/L (98-107); Estimated GFR-MDRD 17; Globulin 1.9 g/dL (2.4-3.5); Magnesium 2.2 mg/dL (1.6-2.6)
[2017-06-08 05:43] LABS: Band 1 % (5-11); Hematocrit 28.5 % (36.0-47.0); Mean Platelet Volume 11.6 fL (7.4-10.4); Neutrophil 96 % (42-75); Red Blood Cell (RBC) Count 3.13 mill/uL (4.20-5.40); Schistocytes SLIGHT = 2-5 cells (100X) (0-1/hpf); White Blood Cell (WBC) Count 19.8 thou/uL (4.8-10.8)
[2017-06-08 07:05] LABS: Oxyhemoglobin 97.1 % (94.0-97.0); Sodium 134 mmol/L (135-148)
[2017-06-08 07:12] LABS: Mechanical Tidal Volume 450 ml; Mode SIMV; Modified Allen's Test POSITIVE; Pressure Support 10 cmH2O; Spontaneous Rate 11 min; Vent YES
--- NOTE | 2017-06-08 07:34 | PDOC.FM ---
- Subjective Subjective: Patient is easily arousable. No acute events overnight. She had bleeding from her trach site yesterday and resolved sp platelets x 1 and repacking with surgiceal around trach site. She does acknowledge some abdominal pain, difficult to know the severity and type. - Objective MAR Reviewed: Yes Vital Signs & Weight: Vital Signs (12 hours) Temp Pulse Resp BP Pulse Ox 06/08/17 07:14 124 H 96/64 06/08/17 07:00 98.8 F 06/08/17 06:00 21 H 06/08/17 04:00 98.0 F 21 H 06/08/17 02:25 114 H 22 H 100 06/08/17 02:00 24 H 06/08/17 00:00 97.9 F 23 H 06/07/17 22:27 118 H 22 H 99 06/07/17 22:00 22 H 06/07/17 20:00 97.9 F 114 H 20 97 Weight Admit Weight 67.222 kg Weight 87.6 kg Most Recent Monitor Data Heart Rate from ECG 124 NIBP 98/64 NIBP BP-Mean 89 Respiration from ECG 9 SpO2 100 I&O: 06/07/17 06/08/17 06/09/17 06:59 06:59 06:59 Intake Total 1098 1594.6 Output Total 734 160 0 Balance 364 1434.6 0 Result Diagrams: 06/08/17 04:00 06/08/17 04:00 <Viktoria Rosales - Last Filed: 06/08/17 10:17> - Objective Vital Signs & Weight: Vital Signs (12 hours) Temp Pulse Resp BP Pulse Ox 06/08/17 07:32 98.8 F 124 H 21 H 100 06/08/17 07:14 124 H 96/64 06/08/17 07:00 98.8 F 06/08/17 06:00 21 H 06/08/17 04:00 98.0 F 21 H 06/08/17 02:25 114 H 22 H 100 06/08/17 02:00 24 H 06/08/17 00:00 97.9 F 23 H 06/07/17 22:27 118 H 22 H 99 Weight Admit Weight 67.222 kg Weight 87.6 kg Most Recent Monitor Data Heart Rate from ECG 105 NIBP 111/77 NIBP BP-Mean 89 Respiration from ECG 10 SpO2 95 I&O: 06/07/17 06/08/17 06/09/17 06:59 06:59 06:59 Intake Total 1098 1594.6 Output Total 734 160 0 Balance 364 1434.6 0 Result Diagrams: 06/08/17 04:00 06/08/17 04:00 <Rhina Bravo - Last Filed: 06/08/17 10:36> Phys Exam - Physical Examination HEENT: PERRLA, moist MMs Respiratory: no wheezing some rhonci bilaterally Cardiovascular: no significant murmur Gastrointestinal: soft diffusely tender, worse in epigstric region 4+ pitting edema <Viktoria Rosales - Last Filed: 06/08/17 10:17> Dx/Plan (1) Acute respiratory failure Code(s): J96.00 - ACUTE RESPIRATORY FAILURE, UNSP W HYPOXIA OR HYPERCAPNIA Status: Chronic Qualifiers: Respiratory failure complication: hypoxia Qualified Code(s): J96.01 - Acute respiratory failure with hypoxia Plan: (2) Ventilator associated pneumonia Code(s): J95.851 - VENTILATOR ASSOCIATED PNEUMONIA Status: Acute Plan: (3) Pawav-jo-zqjysel kidney injury Code(s): N17.9 - ACUTE KIDNEY FAILURE, UNSPECIFIED; N18.9 - CHRONIC KIDNEY DISEASE, UNSPECIFIED Status: Acute Plan: (4) CHF exacerbation Code(s): I50.9 - HEART FAILURE, UNSPECIFIED Status: Suspected Qualifiers: Congestive heart failure type: unspecified congestive heart failure type Qualified Code(s): I50.9 - Heart failure, unspecified Plan: (5) Choledocholithiasis Code(s): K80.50 - CALCULUS OF BILE DUCT W/O CHOLANGITIS OR CHOLECYST W/O OBST Status: Acute Plan: poor candidate for surgery, LFTs normalizing, bilirubin remains elevated. Surgery following. (6) Elevated LFTs Code(s): R79.89 - OTHER SPECIFIED ABNORMAL FINDINGS OF BLOOD CHEMISTRY Status : Resolved (7) Constipation Code(s): K59.00 - CONSTIPATION, UNSPECIFIED Status: Resolved Qualifiers: Constipation type: slow transit constipation Qualified Code(s): K59.01 - Slow transit constipation Plan: 2 bowel movements overnight, normal active bowel sounds (8) Physical deconditioning Code(s): R53.81 - OTHER MALAISE Status: Acute Plan: Patient is very weak. Family wants to cont with all interventions (9) Thrombocytopenia Code(s): D69.6 - THROMBOCYTOPENIA, UNSPECIFIED Status: Acute - Plan Plan: Respiratory failure 2/2 severe deconditioning s/p trach placement- too weak to wean from vent. acute on chronic renal failure s/p trialysis catheter placement. planning for repeat dialysis toda. VAP- bronch lavage growing MRSA, psuedomonas, lactobacillus, corynebacterium - Completed cefepime- 11 days, linezolid- 9 days, diflucan- 7 days acute on chronic CHF exacerbation- minimal response to lasix, now on dialysis abdominal tenderness- KUB today although this may be secondary to patient's known cholecystitis/choledocholithiasis. choledocholithiasis- not currently able to undergo surgery however cont to monitor for worsening, gen surg following severe physical deconditioning- long recovery period and will require placement in LTAC facility Thrombocytopenia- possibly 2/2 linezolid. s/p 1 unit platelets. cont to monitor , hold plavix <Viktoria Rosales - Last Filed: 06/08/17 10:17> Attending Addendum - Attending Addendum I personally evaluated the patient and discussed the management with Dr. Rosales I agree with the History, Examination, Assessment and Plan documented above with any addition or exceptions noted below- Patient on vent via trach. Awake/ alert. Afebrile VSS. A/P: 1) Acute respiratory failure- continue vent support; not able to wean at this time, 2) Non-oliguric renal failure secondary to ATN- continue HD as per renal, 3) Abdominal distension- x-ray with dilated loops; no definitive air/fluid levels; place NGT to suction and monitor; consider reglan <Rhina Bravo - Last Filed: 06/08/17 10:36>
--- NOTE | 2017-06-08 08:50 | RAD ---
AP VIEW CHEST: HISTORY: Ventilator-dependent patient. FINDINGS: AP view chest was obtained on 06/08/17. Comparison is made to a previous exam from 06/07/17. AP view chest demonstrates Dobbhoff tube in place. The patient has a tracheostomy tube in place. A prosthetic cardiac device is seen. EKG leads are seen over the chest. Cardiomegaly is noted. Clarence ateral pleural effusions seen. Pulmonary vascular congestion is seen. Right-sided jugular central line is in place. IMPRESSION: Stable AP view of the chest. There does appear to be some decreased pulmonary vascular congestion; otherwise, unchanged. POS: [facility]
--- NOTE | 2017-06-08 09:16 | RAD ---
AP VIEW ABDOMEN: Date: 06/08/17 HISTORY: Abdominal pain. FINDINGS: AP view abdomen obtained. There is a Dobbhoff tube in place, distal tip overlying the gastric antrum . The stomach is distended. Diffuse small bowel and colonic distention is noted. There is a right femoral dialysis catheter in place. IMPRESSION: Distended abdominal gas pattern. POS: [facility]
--- NOTE | 2017-06-08 09:18 | PRG ---
DATE OF SERVICE: 06/08/2017 SUBJECTIVE: Ms. Escamilla is an 82-year-old white female being followed up for acute kidney injury from acute tubular necrosis. We have initiated dialysis. She received a 2-hour dialysis yesterday. We were able to remove 2 liters with pressure support. Blood pressure is noted today at about 106/70. Currently on Levophed; however, noted to be tachycardic. I will attempt to remove what fluid we ca n, if not we will just keep her even. No acute changes with this patient. PHYSICAL EXAMINATION: VITAL SIGNS: Blood pressure is 113/81, heart rate is 110, respiratory rate 14, pulse oximetry 93%. GENERAL: Noted to be sedated, on ventilator support. SKIN: Adequate turgor. HEENT: She has pinkish conjunctivae, anicteric sclerae. NECK: No neck mass. Positive for tracheostomy. LUNGS: Decreased breath sounds. HEART: Tachycardic, no murmur, no gallops, no rubs. ABDOMEN: Soft, nontender, no masses. EXTREMITIES: No edema or deformities. MEDICATIONS: 06/08/2017 reviewed. LABORATORY DATA: Laboratories of 06/08/2017, white count 19.8, hemoglobin 9.4, sodium 135, potassiu m 3.8, chloride 98, carbon dioxide 24, BUN 102, creatinine 2.65, glucose 122, phosphorus 4.0, magnes ium 2.2, AST 26, ALT 62. ASSESSMENT AND PLAN: 1. Acute kidney injury -- secondary to acute tubular necrosis. Continue supportive care. Continue current hemodialysis regimen. I will be doing a 3-hour hemodialysis with this patient. Fluid sameer armand only as tolerated. With the low blood pressure and tachycardia, I am not too optimistic we can remove a lot of fluid with this patient. However, we will continue dialysis. We will again schedul e her back for a 4-hour dialysis tomorrow. 2. Sepsis -- on intravenous antibiotics. 3. Acute respiratory failure, currently on ventilator support. Maxing out fluid removal in order t o assist in helping to wean off this patient from the ventilator. Her overall prognosis remains guarded. Case discussed at length with her son.
--- NOTE | 2017-06-08 12:53 | PDOC.CTH ---
Cardiology Progress Note - Subjective Dialysis initiated. Able to remove some fluid, but only with BP support on levophed. She is extremely weak and debilitated. Made DNR yesterday. - Objective Vital Signs Temp Pulse Resp BP Pulse Ox 06/08/17 10:53 124 H 103/70 06/08/17 10:43 120 H 22 H 99 06/08/17 07:32 98.8 F 124 H 21 H 100 06/08/17 07:14 124 H 96/64 06/08/17 07:00 98.8 F 06/08/17 06:00 21 H 06/08/17 04:00 98.0 F 21 H 06/08/17 02:25 114 H 22 H 100 06/08/17 02:00 24 H Admit Weight 148 lb 3.186 oz Weight 193 lb 1.999 oz 06/07/17 06/08/17 06/09/17 06:59 06:59 06:59 Intake Total 1098 1594.6 Output Total 734 160 0 Balance 364 1434.6 0 - Physical Examination General/Neuro: NAD Neck: carotid US brisk, no JVD present Lungs: CTA, unlabored respirations Heart: PMI normal, RRR Abdomen: no HSM, NT/ND, soft Extremities: + edema B Other PE findings: Neuro: no focal motor defs - Telemetry Telemetry Rhythm: PAF with aberrancy - Labs Result Diagrams: 06/08/17 04:00 06/08/17 04:00 Troponin/CKMB CK-MB (CK-2) 2.6 ng/mL (0-6.6) 05/21/17 07:21 Troponin I 0.086 ng/mL (< 0.028) H 05/21/17 12:04 - Assessment/Plan 1. CHF, acute diastolic: volume status mildly improved with initiation of dialysis. Continue as tolerated with BP support as needed. 2. , history of TAVR: stable. Monitor. 3. Acute/chronic renal failure: dialysis initiated. Monitor function. 4. respiratory failure: multifactorial. Trache placed and functional. Vent support as required. 5. profound debilitation: prognosis is poor given degree of frailty 6. AF with aberrancy: not anticoagulation candidate at this time due to significant bleeding from trache site recently. Continue amiodarone IVPB as ordered.
[2017-06-08] MEDS: Clopidogrel Bisulfate 75 MG TAB PO SCH (14:14)
[2017-06-08] MEDS: WATER IVPB SCH ×4 (14:14→20:35)
[2017-06-08] MEDS: AMIODARONE HCL IVPB SCH ×4 (14:14→20:35)
[2017-06-08] MEDS: DEXTROSE 5% IVPB SCH ×4 (14:14→20:35)
[2017-06-08] MEDS: Polyethylene Glycol 3350 17 GM Packet PER TUBE SCH (14:15)
[2017-06-08] MEDS: Lactinex Tablet PO SCH (14:15)
[2017-06-08] MEDS ORDERED: Heparin 10,000 UNITS/ 10 ML VIAL ONE (16:32)
--- NOTE | 2017-06-08 17:17 | PRG ---
DATE OF SERVICE: 06/08/2017 SUBJECTIVE: She is still in atrial fibrillation with a rate of 120. OBJECTIVE: VITAL SIGNS: Blood pressure is 116/77, respiratory rate is 20, oximetry is 98%. NECK: The tracheostomy site bleeding resolved with Dr. Lyon's intervention with Surgicel yesterday . LUNGS: Clear. HEART: Regular rhythm. ABDOMEN: Soft. LABORATORY DATA: White count is 19.8, hemoglobin 9.4, platelets 69,000. Sodium 135, potassium 3.8, chloride 98, bicarbonate 24, BUN 102, creatinine of 2.65, pH 7.38, CO2 of 40, PO2 of 173. IMPRESSION: 1. Respiratory failure associated with TAVR. 2. Acute on chronic kidney disease, now receiving dialysis. Admission weight was 149 pounds. Today, she is reportedly 193 pounds, 197 yesterday and 200 on 05/28. I suspect she has lost 5-10 pounds of muscle mass and fat since she has been here for the p ast month. She is probably still close to 50 pounds volume overloaded. She is currently not weanab le from mechanical ventilation even with a tracheostomy, because of weakness and anasarca. Critical care time was 30 minutes.
[2017-06-08] MEDS: Pantoprazole 40 MG GRANULES PACKET PER TUBE SCH (20:35)
[2017-06-09] MEDS: Levothyroxine Sodium 75 MCG TAB PO SCH (05:22)
[2017-06-09 05:25] LABS: ALT (SGPT) 52 U/L (8-55); AST (SGOT) 23 U/L (5-34); Alkaline Phosphatase 149 U/L (40-150); Anion Gap 14 mmol/L (10-20); BUN (Urea Nitrogen) 77 mg/dL (9.8-20.1); Calc. Creatinine Clearance 29 mL/min (70-130); Calcium 8.8 mg/dL (7.8-10.44); Carbon Dioxide 27 mmol/L (23-31); Chloride 100 mmol/L (98-107); Estimated GFR-MDRD 22; Globulin 1.9 g/dL (2.4-3.5); Magnesium 2.1 mg/dL (1.6-2.6); Phosphorus 3.3 mg/dL (2.3-4.7); Protein, Total 5.5 g/dL (6.0-8.3)
[2017-06-09 05:32] LABS: #Lymphocytes 0.3 thou/uL (1.20-3.40); #Monocytes 0.6 thou/uL (0.11-0.59); #Neutrophils 12.1 thou/uL (1.40-6.50); %Eosinophils 0.1 % (0.0-10.0); %Monocytes 4.2 % (0.0-10.0); Acanthocytes MODERATE= 6-15 cells (100X) (None Seen); Anisocytosis SLIGHT = 6-15 cells (100X) (0-5/hpf); Mean Platelet Volume 13.9 fL (7.4-10.4); Red Blood Cell (RBC) Count 2.73 mill/uL (4.20-5.40); White Blood Cell (WBC) Count 12.9 thou/uL (4.8-10.8)
[2017-06-09] MEDS ORDERED: Albumin 25% 25 GM/100 ML BOT IVPB SCH (07:29)
--- NOTE | 2017-06-09 08:31 | RAD ---
SINGLE VIEW OF THE CHEST: HISTORY: Ventilated patient with respiratory failure. COMPARISON: 06/08/2017 FINDINGS: A single view of the chest shows an enlarged cardiomediastinal silhouette. There are multifocal mix ed alveolar/interstitial opacities, which have increased compared to the prior exam. The lines and tubes are unchanged in position. There may be a small left pleural effusion. IMPRESSION: Worsening multifocal opacities that may represent pulmonary edema or multifocal infiltrates. POS: [facility]
--- NOTE | 2017-06-09 08:33 | PRG ---
DATE OF SERVICE: 06/09/2017 Esthela Escamilla remains hemodynamically stable. She still has a rapid rhythm with rate of 113-119 thi s morning. PHYSICAL EXAMINATION: VITAL SIGNS: Blood pressure 108/76, respiratory rate is 20s, oximetry is 99. LUNGS: Lungs remarkable for coarse equal breath sounds. HEART: Irregular rhythm. ABDOMEN: Soft and nontender. EXTREMITIES: Without asymmetry. LABORATORY DATA: White count 12.9, hemoglobin 8.3, platelets 31,000. Sodium 137, potassium 3.6, chloride 100, bicarbonate 27, BUN 77, creatinine 2.15. Her exhaled tidal volumes to about 200 mL with pressure support. IMPRESSION: 1. Respiratory failure, not weanable. 2. Volume overload. 3. Acute renal failure. 4. Status post TAVR. 5. Pulmonary edema by today's chest x-ray. 6. Atrial fibrillation. 7. Thrombocytopenia, perhaps a delayed effect of Zyvox. Her deconditioning is the biggest risk factor for her not surviving. I suspect if we are successful weaning her from mechanical ventilation she will not live very long. Continue with aggressive care per family's wishes.
[2017-06-09] MEDS: Lactinex Tablet PO SCH (09:23)
[2017-06-09] MEDS: AMIODARONE HCL IVPB SCH ×4 (09:23→21:02)
[2017-06-09] MEDS: Polyethylene Glycol 3350 17 GM Packet PER TUBE SCH (09:23)
[2017-06-09] MEDS: DEXTROSE 5% IVPB SCH ×4 (09:23→21:02)
[2017-06-09] MEDS: WATER IVPB SCH ×4 (09:23→21:02)
[2017-06-09] MEDS: Clopidogrel Bisulfate 75 MG TAB PO SCH (09:46)
--- NOTE | 2017-06-09 11:09 | PDOC.FM ---
- Subjective Subjective: Patient is resting. She does motion she has stomach pain. She was unable to tolerate fluids taken off yesterday during dialysis. - Objective Vital Signs & Weight: Vital Signs (12 hours) Temp Pulse Resp BP Pulse Ox 06/09/17 06:34 113 H 108/76 06/09/17 06:30 119 H 22 H 99 06/09/17 06:00 31 H 06/09/17 04:00 25 H 06/09/17 03:00 99 F 06/09/17 02:14 106 H 103/77 06/09/17 02:00 19 06/09/17 00:00 21 H Weight Admit Weight 67.222 kg Weight 89.2 kg Most Recent Monitor Data Heart Rate from ECG 111 NIBP 100/69 NIBP BP-Mean 72 Respiration from ECG 16 SpO2 99 I&O: 06/08/17 06/09/17 06/10/17 06:59 06:59 06:59 Intake Total 1594.6 600 Output Total 160 85 Balance 1434.6 515 Result Diagrams: 06/09/17 04:55 06/09/17 04:55 Phys Exam - Physical Examination ventilated on trach Respiratory: no wheezing Few rhonchi but overall difficult exam. irregularly irregular, tachycardic Gastrointestinal: soft mildly distended, TTP primarily in epigastric region. 3+ pitting edema Dx/Plan (1) Thrombocytopenia Code(s): D69.6 - THROMBOCYTOPENIA, UNSPECIFIED Status: Acute Plan: likely 2/2 linezolid. Transfuse platelets if < 20. (2) Ezkkk-io-htkaziu kidney injury Code(s): N17.9 - ACUTE KIDNEY FAILURE, UNSPECIFIED; N18.9 - CHRONIC KIDNEY DISEASE, UNSPECIFIED Status: Acute Plan: significantly fluid overload. planning for dialysis today. Cont levophed as needed for BP support (3) Acute respiratory failure Code(s): J96.00 - ACUTE RESPIRATORY FAILURE, UNSP W HYPOXIA OR HYPERCAPNIA Status: Chronic Qualifiers: Respiratory failure complication: hypoxia Qualified Code(s): J96.01 - Acute respiratory failure with hypoxia Plan: (4) Physical deconditioning Code(s): R53.81 - OTHER MALAISE Status: Acute (5) CHF exacerbation Code(s): I50.9 - HEART FAILURE, UNSPECIFIED Status: Suspected Qualifiers: Congestive heart failure type: unspecified congestive heart failure type Qualified Code(s): I50.9 - Heart failure, unspecified Plan: (6) Ventilator associated pneumonia Code(s): J95.851 - VENTILATOR ASSOCIATED PNEUMONIA Status: Resolved Plan: (7) Choledocholithiasis Code(s): K80.50 - CALCULUS OF BILE DUCT W/O CHOLANGITIS OR CHOLECYST W/O OBST Status: Acute Plan: poor candidate for surgery, LFTs normalizing, bilirubin improving (8) Paroxysmal a-fib Code(s): I48.0 - PAROXYSMAL ATRIAL FIBRILLATION Status: Chronic Plan: cont amiodarone, unable to anticoagulate due to platelet count and recent bleeding episode. - Plan Plan: Overall this patient's condition remains guarded. Will hold plavix unless platelet count improves. Heparin held after bleeding episode and low platelets.
[2017-06-09] MEDS ORDERED: Heparin 1,000 UNITS/ML VIAL ONE (11:11)
[2017-06-09] MEDS: Albumin 25% 25 GM/100 ML BOT IVPB SCH ×3 (11:58→23:21)
--- NOTE | 2017-06-09 12:43 | PDOC.CTH ---
Cardiology Progress Note - Subjective Remains in AF with variable rates. Requiring pressor support to tolerate dialysis. Reports belly pain today. ROS otherwise negative. - Objective Vital Signs Temp Pulse Pulse Pulse Pulse Resp BP 06/09/17 12:00 98.6 F 21 H 06/09/17 11:09 109 H 107/74 06/09/17 11:06 117 H 25 H 06/09/17 10:00 18 06/09/17 08:42 130 H 97 110 H 06/09/17 08:00 98.8 F 18 06/09/17 06:34 113 H 108/76 06/09/17 06:30 119 H 22 H 06/09/17 06:00 31 H 06/09/17 04:00 25 H 06/09/17 03:00 99 F 06/09/17 02:14 106 H 103/77 06/09/17 02:00 19 BP Pulse Ox Pulse Ox Pulse Ox 06/09/17 12:00 06/09/17 11:09 06/09/17 11:06 99 06/09/17 10:00 06/09/17 08:42 117/77 99 100 06/09/17 08:00 06/09/17 06:34 06/09/17 06:30 99 06/09/17 06:00 06/09/17 04:00 06/09/17 03:00 06/09/17 02:14 06/09/17 02:00 Admit Weight 148 lb 3.186 oz Weight 196 lb 10.437 oz 06/08/17 06/09/17 06/10/17 06:59 06:59 06:59 Intake Total 1594.6 600 360 Output Total 160 85 30 Balance 1434.6 515 330 - Physical Examination General/Neuro: NAD Neck: carotid US brisk, no JVD present Lungs: CTA, unlabored respirations Heart: PMI normal, other: (irregular) Abdomen: no HSM, NT/ND, soft Extremities: + edema B Other PE findings: Neuro: no focal motor defs - Telemetry Telemetry Rhythm: AF with aberrancy - Labs Result Diagrams: 06/09/17 04:55 06/09/17 04:55 Troponin/CKMB CK-MB (CK-2) 2.6 ng/mL (0-6.6) 05/21/17 07:21 Troponin I 0.086 ng/mL (< 0.028) H 05/21/17 12:04 - Assessment/Plan 1. CHF, acute diastolic: volume status mildly improved with initiation of dialysis. Continue as tolerated with BP support as needed. 2. , history of TAVR: stable. Monitor. 3. Acute/chronic renal failure: dialysis initiated. Monitor function. 4. respiratory failure: multifactorial. Trache placed and functional. Vent support as required. 5. profound debilitation: prognosis is poor given degree of frailty 6. AF with aberrancy: not anticoagulation candidate at this time due to significant bleeding from trache site recently. Continue amiodarone IVPB as ordered. Add digoxin for better rate control.
[2017-06-09] MEDS ORDERED: Digoxin 0.5 MG/2 ML AMP SLOW IVP SCH (12:45)
--- NOTE | 2017-06-09 16:27 | PRG ---
DATE OF SERVICE: 06/09/2017 SUBJECTIVE: The patient underwent hemodialysis today for 4 hours. We were able to remove almost 4 liters. She tolerated the said treatment. Her blood pressure remained steady at the same time, she was less tachycardic. PHYSICAL EXAMINATION: VITAL SIGNS: Blood pressure is 112/67, heart rate 108, respiratory rate 24, pulse ox 99%. GENERAL: Noted to be arousable on ventilator support. HEENT: Slightly pale conjunctivae, anicteric sclerae. Positive for tracheostomy. NECK: No neck mass, no carotid bruits, no JVD. CHEST: No deformities. LUNGS: Decreased breath sounds. No wheezing. HEART: Tachycardic. No murmur, no gallops or rubs. ABDOMEN: Globular, soft, nontender, no masses. EXTREMITIES: Positive for edema. MEDICATIONS: 06/09/2017 - Reviewed. LABORATORY: 06/08/2017 - Hemoglobin 8.3, sodium 137, potassium 3.6, chloride 100, carbon dioxide 24 , BUN 77, creatinine 2.15, glucose 135, calcium 8.8, phosphorus 3.3. AST 23, ALT 52. ASSESSMENT AND PLAN: 1. Acute kidney injury - secondary to presumed acute tubular necrosis. Continue supportive care. Hemodialysis has been initiated with this patient. On her fourth dialysis day - 4 hours was done an d we were able to remove 4 liters. She tolerated the said treatment. My plan is to give her a norman k. We will not schedule her for dialysis over the weekend. We will evaluate her on a daily basis. 2. Volume overload/congestive heart failure - Fluid removal well with the dialysis. 3. Chest x-ray of 06/09/2017 showed worsening multifocal opacities - this is possibly a pulmonary e compa remains or this could be a possible infection. The patient is currently being empirically treated with IV antibiotics. Overall, prognosis remains guarded.
[2017-06-09] MEDS: Pantoprazole 40 MG GRANULES PACKET PER TUBE SCH (20:47)
[2017-06-10] MEDS: Albumin 25% 25 GM/100 ML BOT IVPB SCH ×3 (05:09→17:36)
[2017-06-10] MEDS: Levothyroxine Sodium 75 MCG TAB PO SCH (05:09)
[2017-06-10 05:22] LABS: ALT (SGPT) 43 U/L (8-55); AST (SGOT) 25 U/L (5-34); Alkaline Phosphatase 132 U/L (40-150); Anion Gap 13 mmol/L (10-20); BUN (Urea Nitrogen) 53 mg/dL (9.8-20.1); Bilirubin, Total 1.7 mg/dL (0.2-1.2); Calc. Creatinine Clearance 39 mL/min (70-130); Calcium 9.2 mg/dL (7.8-10.44); Carbon Dioxide 31 mmol/L (23-31); Chloride 97 mmol/L (98-107); Estimated GFR-MDRD 33; Globulin 1.4 g/dL (2.4-3.5); Phosphorus 2.3 mg/dL (2.3-4.7); Protein, Total 5.7 g/dL (6.0-8.3)
[2017-06-10 05:25] LABS: Hematocrit 21.4 % (36.0-47.0); Mean Platelet Volume 16.4 fL (7.4-10.4); Red Blood Cell (RBC) Count 2.31 mill/uL (4.20-5.40)
[2017-06-10 05:28] LABS: Hypochromia SLIGHT = 6-15 cells (100X) (0-5/hpf); Neutrophil 96 % (42-75)
[2017-06-10] MEDS ORDERED: Potassium Chloride 40 MEQ in Premix Bag 1 BAG IVPB SCH (05:45)
--- NOTE | 2017-06-10 05:51 | PDOC.FM ---
- Subjective Subjective: Ms. Escamilla has done well o/n. She has a trach/ventilated through her trach. She has several lines, has been weaned off of levophed, not on sedation, receiving platelets this morning as her platelet count was 11, NG feedings in place as well. Not bleeding from IV sites or trach collar site. U/o has been low/dark colored. Nursing reports that she has been having good bms, her abdomen looked unchanged to me from time of admission. She is resting comfortably, easily arousable, shakes and nods head to answer questions, not in distress. Did well with dialysis yesterday able to remove 4 L, plan is to get dialysis again on M. - Objective MAR Reviewed: Yes Vital Signs & Weight: Vital Signs (12 hours) Temp Pulse Resp Pulse Ox 06/10/17 04:00 19 06/10/17 03:00 98.5 F 06/10/17 02:34 85 06/10/17 02:33 101 H 28 H 97 06/10/17 02:00 21 H 06/10/17 00:00 24 H 06/09/17 23:00 98.4 F 06/09/17 22:18 99 06/09/17 22:17 93 21 H 98 06/09/17 22:00 18 06/09/17 20:00 98.5 F 94 18 99 06/09/17 19:00 98.5 F 06/09/17 18:12 96 33 H 100 06/09/17 18:00 16 Weight Admit Weight 67.222 kg Weight 84.7 kg Most Recent Monitor Data Heart Rate from ECG 92 NIBP 120/63 NIBP BP-Mean 88 Respiration from ECG 20 SpO2 100 I&O: 06/08/17 06/09/17 06/10/17 06:59 06:59 06:59 Intake Total 1594.6 600 1180 Output Total 160 85 50 Balance 1434.6 515 1130 Result Diagrams: 06/10/17 04:30 06/10/17 04:30 Phys Exam - Physical Examination Constitutional: NAD HEENT: PERRLA, moist MMs Respiratory: no wheezing rales b/l Cardiovascular: irregular paroxysmal afib massive distension, but non TTP focally Musculoskeletal: edema present 3+ pitting edema in b/l LE Deviation from normal: skin has diffuse ecchymosis, some skin tears covered with dressings Dx/Plan (1) Thrombocytopenia Code(s): D69.6 - THROMBOCYTOPENIA, UNSPECIFIED Status: Acute Plan: Pt has been thrombocytopenic (11 today) and this is her 2nd unit of platelets since 06/06. No sites/skin tears have active bleeding. We are holding her plavix and heparin. Likely may need more platelets but do not want to overly tranfuse products since she is not to receive dialysis until Monday. (2) Acute respiratory failure Code(s): J96.00 - ACUTE RESPIRATORY FAILURE, UNSP W HYPOXIA OR HYPERCAPNIA Status: Chronic Qualifiers: Respiratory failure complication: hypoxia Qualified Code(s): J96.01 - Acute respiratory failure with hypoxia Plan: Multifactorial. Pt is on ventilated through her trach. Current settings are SIMV : rate 4, TV 450, PEEP 7, FiO2 33%, pressure support 9. She is breathing on her own but making poor respiratory effort. (3) Anemia Code(s): D64.9 - ANEMIA, UNSPECIFIED Status: Chronic Qualifiers: Anemia type: iron deficiency Plan: Blood count today is 7.2. I have ordered a unit of blood to be held for her, will try to hold off on transfusion until closer to dialysis. Recheck count tomorrow. (4) CHF exacerbation Code(s): I50.9 - HEART FAILURE, UNSPECIFIED Status: Suspected Qualifiers: Congestive heart failure type: unspecified congestive heart failure type Qualified Code(s): I50.9 - Heart failure, unspecified Plan: Pt needs continued diuresis but with acute renal failure and poor u/o we have been using dialysis. (5) Ireln-kz-mcmcpwy kidney injury Code(s): N17.9 - ACUTE KIDNEY FAILURE, UNSPECIFIED; N18.9 - CHRONIC KIDNEY DISEASE, UNSPECIFIED Status: Acute Plan: Continue dialysis, tolerating well. Plan is to M,W,F if adequate volumes are able to be removed during each session. (6) Atrial fibrillation with normal ventricular rate Code(s): I48.91 - UNSPECIFIED ATRIAL FIBRILLATION Status: Acute Plan: Paroxsymal. Not a candidate for anticoagulation. She is on amiodarone twice daily for rhythm control. HR has been well controlled recently but did have hx of RVR earlier. Will need continued monitoring. (7) Physical deconditioning Code(s): R53.81 - OTHER MALAISE Status: Acute Plan: Pt was already deconditioned prior to admission but with extensive stay and acute illness she is very deconditioned. Her prognosis is very poor. Son is aware and they have decided to make her a DNR (8) Choledocholithiasis Code(s): K80.50 - CALCULUS OF BILE DUCT W/O CHOLANGITIS OR CHOLECYST W/O OBST Status: Acute Plan: Likely contributing to abd discomfort from admission and distension. Unfortunately, she is not a surgical candidate at this time. (9) Hypothyroidism Code(s): E03.9 - HYPOTHYROIDISM, UNSPECIFIED Status: Chronic Qualifiers: Hypothyroidism type: acquired Qualified Code(s): E03.9 - Hypothyroidism, unspecified Plan: Continue synthroid. (10) Constipation Code(s): K59.00 - CONSTIPATION, UNSPECIFIED Status: Resolved Qualifiers: Constipation type: slow transit constipation Qualified Code(s): K59.01 - Slow transit constipation Plan: This is resolved from admission
[2017-06-10] MEDS ORDERED: Potassium Chloride 20 MEQ TAB PO SCH (06:00)
--- NOTE | 2017-06-10 07:56 | PRG ---
DATE OF SERVICE: 06/10/2017 SERVICE: Pulmonary Medicine INTERVAL HISTORY: The patient did not have any significant overnight events. She remains significa ntly volume down compared to2-3 days ago. She is tolerating dialysis fairly well and they are remov ing 2-4 liters on a daily basis. She cannot provide any additional elements of histories because of her severe illness, debility and encephalopathy. PHYSICAL EXAMINATION: VITAL SIGNS: Afebrile, pulse 85, blood pressure 107/69, respirations 20, saturation 91% on 37% FiO2 and PEEP of 5. HEENT: Normocephalic, atraumatic. Sclerae are white, conjunctivae pink. Oral and nasal mucosa is moist without lesions. LUNGS: Excellent air entry. There is no prolonged expiratory phase. Crackles are present througho ut. This is much improved compared to a couple of days ago. HEART: Normal rate, irregular. ABDOMEN: Soft, tender to palpation throughout, but there is not much rebound or guarding. Bowel so unds are hypoactive. GENITOURINARY: Barclay catheter in place. NEUROLOGIC: Grossly nonfocal. LABORATORY DATA: WBC 12.0, hemoglobin 7.2, platelets 11,000. INR 1.3. Potassium 2.9, creatinine 1 .50. Liver function studies are otherwise unremarkable with a down trending bilirubin of 1.7. Urin e cultures negative at 48 hours. Previous BAL from 2 weeks ago is growing multiple organisms includ ing Staph aureus, Corynebacterium, Pseudomonas, and lactobacillus. Blood cultures x2 are negative. IMAGING: Chest x-ray demonstrates right-sided IJ central venous catheter is in good position. Trac heostomy is in place. TAVR is evident. There is an enteric feeding catheter coursing below the lev el of the diaphragm along the midline. A left lower lobe pleural parenchymal abnormality is likely present. ASSESSMENT: 1. Acute hypoxic respiratory failure. 2. Acute kidney injury requiring dialysis. 3. Massive volume overload. 4. Pulmonary edema, improving. 5. Atrial fibrillation. 6. Thrombocytopenia. PLAN: I will give the patient one dose of potassium. Dialysis will once again occur today. Platel ets will be transfused as well. We will continue to follow hemoglobins and if she drops below 7, we will provide her with a couple units of blood. Pulmonary Critical Care will continue to follow. Critical care time: 30 minutes.
--- NOTE | 2017-06-10 08:39 | RAD ---
SINGLE VIEW OF CHEST: Date: 06/10/17 COMPARISON: 06/09/17. HISTORY: Ventilated patient with respiratory failure. FINDINGS: Single view of the chest shows an enlarged cardiomediastinal silhouette. A stent is seen projecting over the heart. The central venous catheter and feeding tube are unchanged in position. The tracheos maximiliano is unchanged in position. Increased interstitial lung markings are present. No significant packer ge has occurred compared to the prior exam. IMPRESSION: Stable exam. POS: JULIETA
[2017-06-10] MEDS: Clopidogrel Bisulfate 75 MG TAB PO SCH (09:06)
[2017-06-10] MEDS: predniSONE 20 MG TAB PO SCH (09:06)
[2017-06-10] MEDS: Lactinex Tablet PO SCH (09:06)
[2017-06-10] MEDS: Polyethylene Glycol 3350 17 GM Packet PER TUBE SCH (09:07)
--- NOTE | 2017-06-10 13:12 | PRG ---
DATE OF SERVICE: 06/10/2017 RENAL MEDICINE SUBJECTIVE: Ms. Escamilla is an 82-year-old white female being followed by [facility] Service for her acute k idney injury secondary to ATN. Yesterday, she underwent a 4-hour dialysis with almost 4 liter of fl uid removed. She tolerated the said treatment. This morning, the patient is noted to be stable. N o acute changes noted tonight. She is stable, currently on ventilator support. OBJECTIVE: VITAL SIGNS: Blood pressure 121/75, heart rate 87, respiratory rate 20, pulse ox 93%. GENERAL: Patient is awake, on ventilator support, not in distress. SKIN: Adequate turgor. HEENT: Slightly pale conjunctivae, anicteric sclerae. NECK: No neck mass, no carotid bruits, no JVD. Positive for tracheostomy. LUNGS: Decreased breath sounds. HEART: Normal sinus rhythm. No murmurs, gallops or rubs. ABDOMEN: Globular, soft, nontender, no masses. EXTREMITIES: Positive for edema, no deformities. MEDICATIONS: 06/10/2017 was reviewed. LABORATORY: 06/10/2017 - White count 12, hemoglobin 7.2, platelet count 11,000. Sodium 138, potass ium 2.9, chloride 97, carbon dioxide 31, BUN 53, creatinine 1.5, glucose 128, calcium is 9.2, phosph orus 2.3, magnesium 2.0, albumin 4.3. ASSESSMENT AND PLAN: 1. Acute kidney injury - secondary to presumed acute tubular necrosis. Continue supportive care. Continue current hemodialysis regimen. No indication for any dialytic intervention this morning. A gain, we will reevaluate her in a.m. Please note we were able to remove 4 L with last dialysis. 2. Anemia. Continue to observe. Consider blood transfusion when the hemoglobin is less than 7. 3. Thrombocytopenia, multifactorial etiology. Currently on platelet infusion. 4. Sepsis syndrome - stable. 5. Acute respiratory failure, currently on ventilator support. Patient is unable to wean at the pr esent time. We are trying to max out fluid removal with dialysis.
--- NOTE | 2017-06-10 16:07 | ADD-PRG ---
ADDENDUM: DATE OF SERVICE: 06/10/2017 This is an addendum to the note of Dr. Ailyn Alvarez. Ms. Escamilla is resting quietly and easily arousable. She is being followed for multiple problems as do cumented previously by Dr. Alvarez. Her platelets have again dropped to 11,000. She will receive an other platelet transfusion. She is a DNR status.
[2017-06-10] MEDS: Pantoprazole 40 MG GRANULES PACKET PER TUBE SCH (20:59)
[2017-06-11] MEDS: Levothyroxine Sodium 75 MCG TAB PO SCH (05:25)
[2017-06-11] MEDS: Albumin 25% 25 GM/100 ML BOT IVPB SCH ×3 (05:26→12:25)
[2017-06-11 05:52] LABS: Anion Gap 12 mmol/L (10-20); BUN (Urea Nitrogen) 83 mg/dL (9.8-20.1); Calc. Creatinine Clearance 30 mL/min (70-130); Calcium 9.4 mg/dL (7.8-10.44); Carbon Dioxide 30 mmol/L (23-31); Chloride 99 mmol/L (98-107); Estimated GFR-MDRD 24
[2017-06-11 06:18] LABS: Anisocytosis SLIGHT = 6-15 cells (100X) (0-5/hpf); Band 1 % (5-11); Macrocytosis SLIGHT = 6-15 cells (100X) (0-5/hpf); Mean Platelet Volume 12.8 fL (7.4-10.4); Neutrophil 86 % (42-75); Red Blood Cell (RBC) Count 2.81 mill/uL (4.20-5.40); White Blood Cell (WBC) Count 16.8 thou/uL (4.8-10.8)
--- NOTE | 2017-06-11 06:18 | PDOC.FM ---
- Subjective Subjective: Pt is attempting to cough a bit, I have suctioned her trach a bit but nothing has come out. I have informed Abrahan. She tells the nurses she feels like she is having reflux, points to her R lower chest. Lungs are sounding better but still have some rhonchi - Objective MAR Reviewed: Yes Vital Signs & Weight: Vital Signs (12 hours) Temp Pulse Resp Pulse Ox 06/11/17 06:00 19 06/11/17 04:00 19 06/11/17 03:00 98.4 F 06/11/17 02:27 94 06/11/17 02:24 98 28 H 100 06/11/17 02:00 18 06/11/17 00:00 21 H 06/10/17 23:00 98 F 06/10/17 22:00 22 H 06/10/17 21:54 92 21 H 95 06/10/17 20:00 98.3 F 92 22 H 94 L 06/10/17 19:00 98.4 F 06/10/17 18:18 93 29 H 91 L Weight Admit Weight 67.222 kg Weight 83.8 kg Most Recent Monitor Data Heart Rate from ECG 98 NIBP 120/66 NIBP BP-Mean 80 Respiration from ECG 19 SpO2 94 I&O: 06/09/17 06/10/17 06/11/17 06:59 06:59 06:59 Intake Total 600 1682 1629 Output Total 85 70 30 Balance 515 1612 1599 Result Diagrams: 06/11/17 05:00 06/11/17 05:00 Phys Exam - Physical Examination Constitutional: NAD HEENT: PERRLA rhonchi Cardiovascular: irregular HR at times above 100 massive distension, no focal TTP Musculoskeletal: edema present 3+ Deviation from normal: as before massive ecchymosis of arms, and some on legs Dx/Plan (1) Thrombocytopenia Code(s): D69.6 - THROMBOCYTOPENIA, UNSPECIFIED Status: Acute Plan: Pt has been thrombocytopenic, but improved to 35 today after transfusion yesterday, this is her 2nd unit of platelets since 06/06. No sites/skin tears have active bleeding. We are holding her plavix and heparin. Likely may need more platelets but do not want to overly tranfuse products since she is not to receive dialysis until Monday. (2) Acute respiratory failure Code(s): J96.00 - ACUTE RESPIRATORY FAILURE, UNSP W HYPOXIA OR HYPERCAPNIA Status: Chronic Qualifiers: Respiratory failure complication: hypoxia Qualified Code(s): J96.01 - Acute respiratory failure with hypoxia Plan: Multifactorial. Pt is on ventilated through her trach. Currently on a spontaneous breathing trial doing well (3) Anemia Code(s): D64.9 - ANEMIA, UNSPECIFIED Status: Chronic Qualifiers: Anemia type: iron deficiency Plan: Blood count today is 8.6, tranfusion ok'd by Dr. Yusuf yesterday and given. Recheck count tomorrow. Will receive dialysis tomorrow. (4) CHF exacerbation Code(s): I50.9 - HEART FAILURE, UNSPECIFIED Status: Suspected Qualifiers: Congestive heart failure type: unspecified congestive heart failure type Qualified Code(s): I50.9 - Heart failure, unspecified Plan: Pt needs continued diuresis but with acute renal failure and poor u/o we have been using dialysis. (5) Rziqb-fl-gewucvq kidney injury Code(s): N17.9 - ACUTE KIDNEY FAILURE, UNSPECIFIED; N18.9 - CHRONIC KIDNEY DISEASE, UNSPECIFIED Status: Acute Plan: Continue dialysis, tolerating well. Plan is to M,W,F if adequate volumes are able to be removed during each session. (6) Atrial fibrillation with normal ventricular rate Code(s): I48.91 - UNSPECIFIED ATRIAL FIBRILLATION Status: Acute Plan: Paroxsymal. Not a candidate for anticoagulation. She is on amiodarone twice daily for rhythm control. HR has been well controlled recently but did have hx of RVR earlier. Will need continued monitoring. The HR has been slowing getting higher noted some over 100 but will treat if consistently above 110. (7) Physical deconditioning Code(s): R53.81 - OTHER MALAISE Status: Acute Plan: Pt was already deconditioned prior to admission but with extensive stay and acute illness she is very deconditioned. Her prognosis is very poor. Son is aware and they have decided to make her a DNR (8) Choledocholithiasis Code(s): K80.50 - CALCULUS OF BILE DUCT W/O CHOLANGITIS OR CHOLECYST W/O OBST Status: Acute Plan: Likely contributing to abd discomfort from admission and distension. Unfortunately, she is not a surgical candidate at this time. (9) Hypothyroidism Code(s): E03.9 - HYPOTHYROIDISM, UNSPECIFIED Status: Chronic Qualifiers: Hypothyroidism type: acquired Qualified Code(s): E03.9 - Hypothyroidism, unspecified Plan: Continue synthroid.
[2017-06-11] MEDS: predniSONE 20 MG TAB PO SCH (10:23)
[2017-06-11] MEDS: Lactinex Tablet PO SCH (10:23)
[2017-06-11] MEDS: Polyethylene Glycol 3350 17 GM Packet PER TUBE SCH (10:23)
--- NOTE | 2017-06-11 10:30 | PRG ---
DATE OF SERVICE: 06/11/2017 RENAL MEDICINE SUBJECTIVE: Ms. Escamilla is undergoing hemodialysis this morning. I am at the bedside supervising her dialysis. Due to the slightly lower blood pressure, I will do 1-hour hemodialysis with 2 hours of u ltrafiltration. Please note she is receiving the extra dialysis today due to the fact that the x-ra y still shows significant CHF with her. I am attempting maximal fluid removal as tolerated by the p atient. PHYSICAL EXAMINATION: VITAL SIGNS: Blood pressure is 106/66, heart rate 92, respiratory rate 21, pulse ox 95%. GENERAL: Noted to be awake on ventilatory support. SKIN: Adequate turgor. HEENT: Pinkish conjunctivae. Anicteric sclerae. NECK: No neck mass, no carotid bruits, no JVD, positive for tracheostomy. LUNGS: Decreased breath sounds. HEART: Normal sinus rhythm. No murmur, no gallops, no rubs. ABDOMEN: Globular, soft, nontender, no masses. EXTREMITIES: Positive for edema. MEDICATIONS: Medications of 06/11/2017 was reviewed. LABORATORY DATA: Laboratories of 06/11/2017; white count 16.8, hemoglobin 8.6, hematocrit 26, sodiu m 138, potassium 3.1, chloride 99, carbon dioxide 30, BUN 83, creatinine 1.97, glucose 104, and calc ium 9.4. ASSESSMENT AND PLAN: 1. Acute kidney injuries - secondary to acute tubular necrosis undergoing hemodialysis today. We w ill do a 3-hour dialysis treatment. As previously mentioned, we will do 1-hour hemodialysis with 2- hour ultrafiltration in order to max out fluid removal with this patient. Review of the last chest x-ray still shows congestive heart failure with this patient. Currently, tolerating said treatment. My plan is to place her on an every other day hemodialysis for fluid removal. 2. Hypokalemia - we will adjust potassium bath to a 4.0 with dialysis today. 3. Acute respiratory failure - maxing out fluid removal due to her underlying congestive heart fail ure. Maxing out fluid removal as tolerated. 4. Anemia - patient received 1 unit of packed RBC yesterday. Continue supportive care.
[2017-06-11] MEDS ORDERED: Heparin 1,000 UNITS/ML VIAL ONE (11:11)
--- NOTE | 2017-06-11 11:19 | PRG ---
DATE OF SERVICE: 06/11/2017 SERVICE: Pulmonary Medicine. INTERVAL HISTORY: The patient is doing fine from a respiratory standpoint. Her work of breathing i s actually much improved. She looks more comfortable on the ventilator today. She is on the dialys is circuit once again and tolerating this fairly well. She cannot provide any additional elements o f the history because of encephalopathy. PHYSICAL EXAMINATION: VITAL SIGNS: Afebrile, pulse 90, blood pressure 106/66, respirations 21, saturation 95% on 27% FIO2 and a PEEP of 5. HEENT: Normocephalic, atraumatic. Sclerae are white, conjunctivae pink. Oral and nasal mucosa is moist without lesions. LUNGS: Decent air entry. Crackles are present. No prolonged expiratory phase, wheezing or rhonchi . HEART: Normal rate, regular. ABDOMEN: Soft, nontender, nondistended, bowel sounds positive. MUSCULOSKELETAL: No cyanosis or clubbing. There is diffuse 2+ pitting throughout. GENITOURINARY: Barclay catheter in place. NEUROLOGIC: Grossly nonfocal. LABORATORY DATA: WBC 16.8 and trending upward, hemoglobin 8.6. Platelets 35,000 and also trending upward. Neutrophil count is 86%, but the band count is only 1%. Creatinine 1.97 and gently trendin g upward. BUN 83. Potassium 3.1. Bronchoalveolar lavage from 05/26/2017 are growing multiple orga nisms. Urine cultures negative to date. IMAGING: Chest x-ray demonstrates tracheostomy tube in good position. Central venous catheter and enteric catheter are in good position. Increased interstitial markings are identified, suggesting s ome degree of volume overload. There is possible left pleural parenchymal opacification present. ASSESSMENT: 1. Acute hypoxic respiratory failure. 2. Acute kidney injury, requiring dialysis. 3. Massive volume overload. 4. Pulmonary edema, slowly improving. 5. Atrial fibrillation. 6. Thrombocytopenia. PLAN: We will continue dialysing the patient in order to optimize fluid removal. Supportive care w ill be continued. If the patient's hemoglobin falls below 7, transfusion will be considered. Pulmo cecile Critical Care will continue to follow. Ventilator adjustments have been made in order to turn a little bit more work of breathing over to the patient. CRITICAL CARE TIME: 30 minutes.
--- NOTE | 2017-06-11 13:17 | ADD-PRG ---
ADDENDUM: DATE OF SERVICE: 06/11/2017 This is an addendum to the note of Dr. Ailyn Alvarez. Ms. Escamilla is awake and alert this morning. She appears to be in no distress, but is of course nonver bal. Her blood pressure is 104/60, her pulse rate is 70 and regular. LABORATORY DATA: Her white count is now up to 35,000 from a low of 11,000 yesterday. We will zohreh nue to monitor with the health insurance adjuster.
[2017-06-11] MEDS: Pantoprazole 40 MG GRANULES PACKET PER TUBE SCH (20:30)
[2017-06-12 04:31] LABS: Hematocrit 25.7 % (36.0-47.0); Mean Platelet Volume 16.1 fL (7.4-10.4); Red Blood Cell (RBC) Count 2.78 mill/uL (4.20-5.40); White Blood Cell (WBC) Count 14.6 thou/uL (4.8-10.8)
[2017-06-12 04:32] LABS: Myelocyte 1 % (0-0); Neutrophil 90 % (42-75); Schistocytes SLIGHT = 2-5 cells (100X) (0-1/hpf)
[2017-06-12 04:38] LABS: Anion Gap 14 mmol/L (10-20); BUN (Urea Nitrogen) 91 mg/dL (9.8-20.1); Calc. Creatinine Clearance 29 mL/min (70-130); Calcium 9.3 mg/dL (7.8-10.44); Carbon Dioxide 29 mmol/L (23-31); Chloride 99 mmol/L (98-107); Estimated GFR-MDRD 24
[2017-06-12] MEDS: Levothyroxine Sodium 75 MCG TAB PO SCH (06:17)
[2017-06-12] MEDS: Lactinex Tablet PO SCH (08:49)
[2017-06-12] MEDS: Polyethylene Glycol 3350 17 GM Packet PER TUBE SCH (08:49)
[2017-06-12] MEDS: predniSONE 20 MG TAB PO SCH (08:49)
--- NOTE | 2017-06-12 09:46 | PRG ---
DATE OF SERVICE: 06/12/2017 SUBJECTIVE: Ms. Escamilla is an 82-year-old white female being followed up by the Renal Service for acut e kidney injury secondary to presumed acute tubular necrosis. She continues to be on ventilator sup port. Last week a tracheostomy has been placed by surgery. She received an extra dialysis yesterda y for volume overload. We are not planning to dialyze her every other day. I do not see any indica tion for any emergent dialysis this morning. No acute events noted last night. PHYSICAL EXAMINATION: VITAL SIGNS: Blood pressure is 117/77, heart rate 89, respiratory rate 20, pulse ox 95%. GENERAL: Noted to be awake, comfortable, not in overt distress, following simple commands. The pat ient is noted to be on ventilator support. HEENT: Pinkish conjunctivae, anicteric sclerae. NECK: No neck mass, no carotid bruits, no JVD. CHEST: No deformities. LUNGS: Decreased breath sounds. No wheezing. HEART: Normal sinus rhythm. No murmur, no gallops, no rubs. ABDOMEN: Globular, soft, nontender, no masses. EXTREMITIES: Trace edema. MEDICATIONS: 06/12/2017 - Reviewed. LABORATORY: 06/12/2017 - White count 14.6, hemoglobin 8.4, hematocrit 25.7, sodium 139, potassium 3 .1, chloride 99, carbon dioxide 29, BUN 91, creatinine 2.01, glucose 85, calcium is 9.3. ASSESSMENT AND PLAN: 1. Acute kidney injury secondary to presumed acute tubular necrosis. Continue supportive care. We have placed this patient now on every other day dialysis for fluid removal. She received 1 hour of dialysis yesterday with 2 hours of ultrafiltration to max out fluid removal. There is no indicatio n for any emergent dialytic intervention today. 2. Thrombocytopenia, p.r.n. platelet transfusion. 3. Hypokalemia, p.r.n. correction. Please note with the dialysis, we tried to correct this by in remberto a 4-0 potassium bath yesterday. Continue potassium supplementation. 4. Acute respiratory failure, stable. Still not weanable at the present time due to hear mentation changes. Currently, maxing out fluid removal as tolerated by the patient with dialysis. Overall, prognosis remains guarded.
--- NOTE | 2017-06-12 10:46 | PDOC.FM ---
- Subjective Subjective: Patient spent several hours on spontaneous breathing trial yesterday. She is back on it this morning and appears to be doing better. Significant fluid off during dialysis on 06/10 and 06/12 for a total of 8 liters off. She still reports abdominal discomfort. - Objective MAR Reviewed: Yes Vital Signs & Weight: Vital Signs (12 hours) Temp Pulse Pulse Resp BP BP Pulse Ox 06/12/17 10:08 95 124/69 06/12/17 10:06 100 20 93 L 06/12/17 10:00 22 H 06/12/17 09:56 97.9 F 93 24 H 114/70 06/12/17 08:00 98.5 F 06/12/17 06:51 89 117/77 06/12/17 06:50 89 20 99 06/12/17 06:00 20 06/12/17 04:00 98.4 F 19 06/12/17 02:25 98 23 H 94 L 06/12/17 02:00 20 06/12/17 00:00 98.6 F 26 H Weight Admit Weight 67.222 kg Weight 81 kg Most Recent Monitor Data Heart Rate from ECG 91 NIBP 124/69 NIBP BP-Mean 89 Respiration from ECG 20 SpO2 93 I&O: 06/11/17 06/12/17 06/13/17 06:59 06:59 06:59 Intake Total 1629 787 370 Output Total 30 70 0 Balance 1599 717 370 Result Diagrams: 06/12/17 03:47 06/12/17 03:47 <Viktoria Rosales - Last Filed: 06/12/17 10:44> - Objective Vital Signs & Weight: Vital Signs (12 hours) Temp Pulse Pulse Resp BP BP Pulse Ox 06/12/17 10:08 95 124/69 06/12/17 10:06 100 20 93 L 06/12/17 10:00 22 H 06/12/17 09:56 97.9 F 93 24 H 114/70 06/12/17 08:00 98.5 F 95 23 H 92 L 06/12/17 06:51 89 117/77 06/12/17 06:50 89 20 99 06/12/17 06:00 20 06/12/17 04:00 98.4 F 19 06/12/17 02:25 98 23 H 94 L 06/12/17 02:00 20 06/12/17 00:00 98.6 F 26 H Weight Admit Weight 67.222 kg Weight 81 kg Most Recent Monitor Data Heart Rate from ECG 91 NIBP 124/69 NIBP BP-Mean 89 Respiration from ECG 20 SpO2 93 I&O: 06/11/17 06/12/17 06/13/17 06:59 06:59 06:59 Intake Total 1629 787 370 Output Total 30 70 0 Balance 1599 717 370 Result Diagrams: 06/12/17 03:47 06/12/17 03:47 <Vitor Molina - Last Filed: 06/12/17 11:06> Phys Exam - Physical Examination Constitutional: NAD HEENT: moist MMs Respiratory: no wheezing rhonchi bilaterally Cardiovascular: RRR, no significant murmur Gastrointestinal: soft BS normal active 4+ pitting edema BLE Deviation from normal: diffuse bruising and hematomas covering bilateral arms. <Viktoria Rosaels - Last Filed: 06/12/17 10:44> Dx/Plan (1) Thrombocytopenia Code(s): D69.6 - THROMBOCYTOPENIA, UNSPECIFIED Status: Acute Plan: likely 2/2 linezolid. 06/10- 6 pack platelets 06/12- 6 pack platelets ordered and given again today. Cont to monitor platelets daily and transfuse as needed. Not currently bleeding (2) Ukuew-vy-angzqrd kidney injury Code(s): N17.9 - ACUTE KIDNEY FAILURE, UNSPECIFIED; N18.9 - CHRONIC KIDNEY DISEASE, UNSPECIFIED Status: Acute Plan: Cont dialysis per nephro. Current plan for every other day . (3) Acute respiratory failure Code(s): J96.00 - ACUTE RESPIRATORY FAILURE, UNSP W HYPOXIA OR HYPERCAPNIA Status: Chronic Qualifiers: Respiratory failure complication: hypoxia Qualified Code(s): J96.01 - Acute respiratory failure with hypoxia Plan: improving 2/2 fluid removal. Cont to attempt SBT and possible trach collar tomorrow if tolerated (4) Physical deconditioning Code(s): R53.81 - OTHER MALAISE Status: Acute Plan: Patient is very weak. Family wants to cont with all interventions Cont PT as tolerated (5) CHF exacerbation Code(s): I50.9 - HEART FAILURE, UNSPECIFIED Status: Suspected Qualifiers: Congestive heart failure type: unspecified congestive heart failure type Qualified Code(s): I50.9 - Heart failure, unspecified Plan: cont dialysis. (6) Choledocholithiasis Code(s): K80.50 - CALCULUS OF BILE DUCT W/O CHOLANGITIS OR CHOLECYST W/O OBST Status: Acute Plan: not a surgical candidate at this time. (7) Paroxysmal a-fib Code(s): I48.0 - PAROXYSMAL ATRIAL FIBRILLATION Status: Chronic Plan: cont amiodarone, unable to anticoagulate due to platelet count and recent bleeding episode. (8) Ventilator associated pneumonia Code(s): J95.851 - VENTILATOR ASSOCIATED PNEUMONIA Status: Resolved Plan: <Viktoria Rosales - Last Filed: 06/12/17 10:44> Attending Addendum - Attending Addendum I personally evaluated the patient and discussed the management with Dr. Rosales. I agree with the History, Examination, Assessment and Plan documented above with any addition or exceptions noted below. Patient is stable. Fluid status continues to be improved with HD sessions, though she is clinically very volume overloaded still. Respiratory status is improved with improved fluid status. Continue bowel regimen so as not to precipitate another event similar to what brought her to hospital in the first place. She continues to be severely thrombocytopenic, currently blamed on linezolid effect. Consumption versus decreased production, and does not appear to consumption related or due to sequestration. She is getting transfused platelets again today and will trend values. If continues to drop, may need Hematology input. Continue with respiratory support as tolerated and expect a continued long hospitalization and rehab. <Vitor Molina - Last Filed: 06/12/17 11:06>
--- NOTE | 2017-06-12 11:37 | PRG ---
DATE OF SERVICE: 06/12/2017 This morning she is awake, alert, responsive, on the vent. She is getting platelet transfusion. PHYSICAL EXAMINATION: VITAL SIGNS: Blood pressure 117/73, O2 sats 94%, respirations 18. GENERAL: She is awake, responsive, moves all 4 extremities but she still has significant edema. BUN and creatinine 91 and 2.0. Platelet count 10,000, white count 14,000. IMPRESSION: 1. Status post trach. 2. Respiratory failure. 3. Renal failure. 4. Status post transcatheter aortic valve replacement. 4. Atrial fibrillation. 5. Severe thrombocytopenia, may be a combination of Zyvox and heparin. All antibiotics have been withheld at this stage, Continue supportive care. She will be transferred to [facility]. She is going to need a PEG. I will follow.
[2017-06-12 12:31] VITALS: BMI 33.7
[2017-06-12] MEDS: Pantoprazole 40 MG GRANULES PACKET PER TUBE SCH (21:43)
[2017-06-13 05:43] LABS: Anion Gap 15 mmol/L (10-20); BUN (Urea Nitrogen) 106 mg/dL (9.8-20.1); Calc. Creatinine Clearance 22 mL/min (70-130); Calcium 9.4 mg/dL (7.8-10.44); Carbon Dioxide 28 mmol/L (23-31); Chloride 97 mmol/L (98-107); Estimated GFR-MDRD 18
[2017-06-13] MEDS: Levothyroxine Sodium 75 MCG TAB PO SCH (05:57)
[2017-06-13 05:58] LABS: Acanthocytes SLIGHT = 1-5 cells (100X) (None Seen); Band 1 % (5-11); Hematocrit 25.6 % (36.0-47.0); Mean Platelet Volume 7.1 fL (7.4-10.4); Neutrophil 88 % (42-75); Red Blood Cell (RBC) Count 2.79 mill/uL (4.20-5.40); White Blood Cell (WBC) Count 16.9 thou/uL (4.8-10.8)
--- NOTE | 2017-06-13 07:59 | PDOC.FM ---
- Subjective Subjective: Patient on trach this monring in SIMV mode. Switched to spontaneous breathing trial this morning. She tolerated 11 hrs of SBT yesterday. No dialysis yesterday. She is making very little urine output. Abdominal pain seems to be better, she has seVeral BM over last few days. She does appear to be uncomfortable when moved or touched. This morning patient indicated on a communication board that she wanted Hospice. This was witnessed by son as well. He has arranged for all of family to come on Monday06/16/17. Will try for a family meeting at 10 am to discuss goals of care and patient wishes. This was discussed with Dr. Cordova, son, patient , and myself at bedside. - Objective Vital Signs & Weight: Vital Signs (12 hours) Temp Pulse Resp BP Pulse Ox 06/13/17 07:11 94 104/50 L 06/13/17 07:07 87 23 H 95 06/13/17 06:00 19 06/13/17 04:00 98.8 F 22 H 06/13/17 02:29 93 06/13/17 02:00 21 H 06/13/17 00:00 98.4 F 33 H 06/12/17 22:15 94 116/73 06/12/17 22:00 22 H 06/12/17 20:00 98.7 F 104 H 21 H 96 Weight Admit Weight 67.222 kg Weight 82.5 kg Most Recent Monitor Data Heart Rate from ECG 83 NIBP 119/67 NIBP BP-Mean 87 Respiration from ECG 18 SpO2 98 I&O: 06/12/17 06/13/17 06/14/17 06:59 06:59 06:59 Intake Total 787 1030 Output Total 70 45 Balance 717 985 Result Diagrams: 06/13/17 05:10 06/13/17 05:10 <Viktoria Rosales - Last Filed: 06/13/17 10:55> - Objective Vital Signs & Weight: Vital Signs (12 hours) Temp Pulse Resp BP Pulse Ox 06/13/17 10:56 87 89/54 L 06/13/17 10:53 91 25 H 06/13/17 10:00 27 H 06/13/17 08:00 23 H 06/13/17 07:11 94 104/50 L 06/13/17 07:07 87 23 H 95 06/13/17 06:00 19 06/13/17 04:00 98.8 F 22 H 06/13/17 02:29 93 06/13/17 02:00 21 H 06/13/17 00:00 98.4 F 33 H Weight Admit Weight 67.222 kg Weight 82.5 kg Most Recent Monitor Data Heart Rate from ECG 88 NIBP 98/64 NIBP BP-Mean 67 Respiration from ECG 27 SpO2 94 I&O: 06/12/17 06/13/17 06/14/17 06:59 06:59 06:59 Intake Total 787 1030 60 Output Total 70 45 0 Balance 717 985 60 Result Diagrams: 06/13/17 05:10 06/13/17 05:10 <Vitor Molina - Last Filed: 06/13/17 11:07> Phys Exam - Physical Examination Constitutional: NAD Respiratory: no wheezing, no rhonchi exam limited irregularly irregular, no murmur. reg rate Gastrointestinal: soft, positive bowel sounds mild distention Deviation from normal: skin breakdown near and above site of trialysis catheter <Viktoria Rosales - Last Filed: 06/13/17 10:55> Dx/Plan (1) Thrombocytopenia Code(s): D69.6 - THROMBOCYTOPENIA, UNSPECIFIED Status: Acute Plan: likely 2/2 linezolid. 06/10- 6 pack platelets 06/12- 6 pack platelets cont daily CBC and transfuse PRN. (2) Lihyg-bv-vobyrpx kidney injury Code(s): N17.9 - ACUTE KIDNEY FAILURE, UNSPECIFIED; N18.9 - CHRONIC KIDNEY DISEASE, UNSPECIFIED Status: Acute Plan: Plan for dialysis today. Maximize fluid removal. Patient is making very little urine on her own. (3) Acute respiratory failure Code(s): J96.00 - ACUTE RESPIRATORY FAILURE, UNSP W HYPOXIA OR HYPERCAPNIA Status: Chronic Qualifiers: Respiratory failure complication: hypoxia Qualified Code(s): J96.01 - Acute respiratory failure with hypoxia Plan: Improving daily with fluid removal. Cont SBT, possible trach collar today. (4) Physical deconditioning Code(s): R53.81 - OTHER MALAISE Status: Chronic Plan: Severe, patient will require LTAC and extensive PT. Also limiting weaning from vent. (5) CHF exacerbation Code(s): I50.9 - HEART FAILURE, UNSPECIFIED Status: Suspected Qualifiers: Congestive heart failure type: unspecified congestive heart failure type Qualified Code(s): I50.9 - Heart failure, unspecified Plan: Fluid overload improving. (6) Choledocholithiasis Code(s): K80.50 - CALCULUS OF BILE DUCT W/O CHOLANGITIS OR CHOLECYST W/O OBST Status: Suspected Plan: not a surgical candidate at this time. LFTs back to baseline. (7) Paroxysmal a-fib Code(s): I48.0 - PAROXYSMAL ATRIAL FIBRILLATION Status: Chronic Plan: cont amiodarone, unable to anticoagulate due to platelet count and recent bleeding episode. (8) Ventilator associated pneumonia Code(s): J95.851 - VENTILATOR ASSOCIATED PNEUMONIA Status: Resolved Plan: - Plan Plan: Plan for family meeting on 06/16/17. <Viktoria Rosales - Last Filed: 06/13/17 10:55> Attending Addendum - Attending Addendum I personally evaluated the patient and discussed the management with Dr. Rosales. I agree with the History, Examination, Assessment and Plan documented above with any addition or exceptions noted below. Patient is stable currently. Respiratory status continues to slightly improve, as she tolerated CPAP by trach all day yesterday pretty well. Her platelet count is also stable after transfusion of platelets yesterday. Other labs overall stable. Her uremia has gotten somewhat worse, though she is having HD today so that should improve. Overall, prognosis poor as patient is trach dependent and has made little meaningful improvement during her hospitalization. Patient appears to desire hospice care at this time, as she indicated to both Dr. Rosales and patients son this morning. I am fairly certain that patient understands the goals of hospice, though with her current situation , I am not certain that she has capacity to make medical decisions for herself. Son is arranging for family to come in the next few days for family meeting and discussion of stopping invasive measures and electing for comfort measures. For now, we will continue to treat and support her renal and respiratory functions. <Vitor Molina - Last Filed: 06/13/17 11:07>
[2017-06-13] MEDS ORDERED: Heparin 10,000 UNITS/ 10 ML VIAL ONE (09:00)
--- NOTE | 2017-06-13 09:36 | PRG ---
DATE OF SERVICE: 06/13/2017 This morning she is awake, alert, responsive, complains of abdominal pain. PHYSICAL EXAMINATION: VITAL SIGNS: Pulse 91, blood pressure 95/60, sats 90% on 2 liters, respirations 22. I's and O's ar e 780 in, 70 out. CHEST: Chest revealed bilateral rhonchi and crackles. CARDIAC: Sinus tach. ABDOMEN: Soft, no masses. LABORATORY: White count 15,000, H\T\H 8 and 25, platelet count is 61, creatinine 2.5, BUN 106. IMPRESSION: 1. Multiorgan failure. 2. Respiratory failure. 3. Pneumonia. 4. Thrombocytopenia, probably secondary to Zyvox, though it has improved to 61,000. 5. Severe deconditioning. PLAN: Continue supportive care, nutrition, PT. Family to make a decision Monday regarding ongoing issues. The patient in fear of getting hospice. She is awake, alert on the vent. I will follow.
[2017-06-13] MEDS: predniSONE 20 MG TAB PO SCH (09:44)
[2017-06-13] MEDS: Lactinex Tablet PO SCH (09:44)
[2017-06-13] MEDS: Polyethylene Glycol 3350 17 GM Packet PER TUBE SCH (09:49)
--- NOTE | 2017-06-13 10:27 | PRG ---
DATE OF SERVICE: 06/13/2017 RENAL MEDICINE SUBJECTIVE: Ms. Escamilla is an 82-year-old white female being followed by the Renal Service for acute k idney injury secondary to acute tubular necrosis. She has been undergoing dialysis regularly due to volume overload. Her last dialysis was last Monday. We removed about 4 liters at that time. The patient remains unc hanged and unimproved. She continues to have ventilator support. PHYSICAL EXAMINATION: VITAL SIGNS: Blood pressure 104/50, heart rate 87, respiratory rate 23, pulse ox 95%. GENERAL: Noted to be arousable on ventilator support. SKIN: Adequate turgor. HEENT: Pinkish conjunctivae. Anicteric sclerae. NECK: No neck mass, no carotid bruits, no JVD. The patient is positive for tracheostomy. CHEST: No deformities. LUNGS: Decreased breath sounds. HEART: Normal sinus rhythm. No murmur, no gallops, no rubs. ABDOMEN: Globular, soft, nontender, no masses. EXTREMITIES: Positive for edema. MEDICATIONS: Medications of 06/13/2017 was reviewed. LABORATORY DATA: Laboratories of 06/13/2017; white count 16.9, hemoglobin 8.5, and hematocrit 25.6. Sodium 137, potassium 3.4, chloride 97, carbon dioxide 28, BUN 106, creatinine 2.58, glucose 106, and calcium 9.4. ASSESSMENT AND PLAN: 1. Acute kidney injury - secondary to acute tubular necrosis - continue every other day hemodialysi s. The plan is to do a 3-hour hemodialysis with fluid removal as tolerated by the patient. We will attempt about 3 liter fluid removal. 2. Acute respiratory failure - currently not weanable. Currently on ventilatory support and patien t has a tracheostomy. Maxing out fluid removal to optimize pulmonary status with this patient. Ove rall, prognosis remains guarded. Awaiting LTAC transfer.
[2017-06-13] MEDS: Pantoprazole 40 MG GRANULES PACKET PER TUBE SCH (20:11)
[2017-06-14 05:12] LABS: Acanthocytes SLIGHT = 1-5 cells (100X) (None Seen); Band 1 % (5-11); Hematocrit 25.5 % (36.0-47.0); Mean Platelet Volume 7.8 fL (7.4-10.4); Neutrophil 86 % (42-75); Red Blood Cell (RBC) Count 2.74 mill/uL (4.20-5.40); Schistocytes SLIGHT = 2-5 cells (100X) (0-1/hpf); White Blood Cell (WBC) Count 16.9 thou/uL (4.8-10.8)
[2017-06-14] MEDS: Levothyroxine Sodium 75 MCG TAB PO SCH (05:13)
[2017-06-14 06:53] LABS: Anion Gap 12 mmol/L (10-20); BUN (Urea Nitrogen) 70 mg/dL (9.8-20.1); Calc. Creatinine Clearance 31 mL/min (70-130); Calcium 8.9 mg/dL (7.8-10.44); Carbon Dioxide 30 mmol/L (23-31); Chloride 99 mmol/L (98-107); Estimated GFR-MDRD 26
--- NOTE | 2017-06-14 09:02 | RAD ---
SEMI UPRIGHT PORTABLE CHEST ONE VIEW: History: 82-year-old female with respiratory insufficiency. Comparison: 06-10-17 FINDINGS: There is very severe rotation to the left. Tracheostomy tube in place. Enteric catheter is in place. Right subclavian catheter in place. Marked bilateral vascular congestion and extensive bilateral in terstitial and alveolar edema and bilateral pleural effusions showing what appears to be worsening w hen compared to the prior study. This increased density may be somewhat accentuated by rotation but changes still appear to be definitely worse from the prior study. IMPRESSION: Considerable rotation to the left. Worsening bilateral alveolar or interstitial pulmonary edema and pleural effusions and stable cardiomegaly. Stable life support tubes. Continued short term follow up . POS: OFF
--- NOTE | 2017-06-14 09:16 | PDOC.FM ---
- Subjective Subjective: Patient has a lot of stomach pain this morning. She is asking for her son and for hospice this morning. She does not want to continue with dialysis or any further treatment. - Objective Vital Signs & Weight: Vital Signs (12 hours) Temp Pulse Resp BP Pulse Ox 06/14/17 07:29 98.2 F 101 H 24 H 95 06/14/17 07:28 88 96/62 06/14/17 07:00 98.2 F 06/14/17 06:00 21 H 06/14/17 04:00 25 H 06/14/17 02:18 104 H 92/64 06/14/17 02:00 21 H 06/14/17 00:00 98.0 F 20 06/13/17 22:20 100 100/67 06/13/17 22:00 32 H Weight Admit Weight 67.222 kg Weight 81.6 kg Most Recent Monitor Data Heart Rate from ECG 95 NIBP 96/62 NIBP BP-Mean 77 Respiration from ECG 22 SpO2 84 I&O: 06/13/17 06/14/17 06/15/17 06:59 06:59 06:59 Intake Total 1030 666 Output Total 45 20 0 Balance 985 646 0 Result Diagrams: 06/14/17 03:31 06/14/17 03:31 <Viktoria Rosales - Last Filed: 06/14/17 09:47> - Objective Vital Signs & Weight: Vital Signs (12 hours) Temp Pulse Resp BP Pulse Ox 06/14/17 14:18 98 06/14/17 13:55 98 06/14/17 12:00 98.4 F 06/14/17 11:03 91 93/55 L 06/14/17 11:02 98 24 H 95 06/14/17 10:00 21 H 06/14/17 07:29 98.2 F 101 H 24 H 95 06/14/17 07:28 88 96/62 06/14/17 07:00 98.2 F 06/14/17 06:00 21 H 06/14/17 04:00 25 H Weight Admit Weight 67.222 kg Weight 81.6 kg Most Recent Monitor Data Heart Rate from ECG 91 NIBP 70/44 NIBP BP-Mean 57 Respiration from ECG 20 SpO2 99 I&O: 06/13/17 06/14/17 06/15/17 06:59 06:59 06:59 Intake Total 1030 666 Output Total 45 20 0 Balance 985 646 0 Result Diagrams: 06/14/17 03:31 06/14/17 03:31 <Vitor Molina - Last Filed: 06/14/17 15:23> Phys Exam - Physical Examination Respiratory: no wheezing diminished breath sounds left sided. reg rate, irregularly irregular. Gastrointestinal: soft distended with hyperactive bowel sounds. 4 + pitting edema. <Viktoria Rosales - Last Filed: 06/14/17 09:47> Dx/Plan (1) Acute respiratory failure Code(s): J96.00 - ACUTE RESPIRATORY FAILURE, UNSP W HYPOXIA OR HYPERCAPNIA Status: Chronic Qualifiers: Respiratory failure complication: hypoxia Qualified Code(s): J96.01 - Acute respiratory failure with hypoxia Plan: Patient tolerating SBT well. Planning for transition to hospice today (2) Dpjqd-wd-ixwmbiz kidney injury Code(s): N17.9 - ACUTE KIDNEY FAILURE, UNSPECIFIED; N18.9 - CHRONIC KIDNEY DISEASE, UNSPECIFIED Status: Acute Plan: Plan for dialysis today. Maximize fluid removal. Patient is making very little urine on her own. (3) Thrombocytopenia Code(s): D69.6 - THROMBOCYTOPENIA, UNSPECIFIED Status: Acute Plan: (4) Physical deconditioning Code(s): R53.81 - OTHER MALAISE Status: Chronic (5) CHF exacerbation Code(s): I50.9 - HEART FAILURE, UNSPECIFIED Status: Suspected Qualifiers: Congestive heart failure type: unspecified congestive heart failure type Qualified Code(s): I50.9 - Heart failure, unspecified Plan: worsening on CXR today (6) Choledocholithiasis Code(s): K80.50 - CALCULUS OF BILE DUCT W/O CHOLANGITIS OR CHOLECYST W/O OBST Status: Suspected Plan: . (7) Paroxysmal a-fib Code(s): I48.0 - PAROXYSMAL ATRIAL FIBRILLATION Status: Chronic Plan: cont amiodarone, unable to anticoagulate due to platelet count and recent bleeding episode. (8) Ventilator associated pneumonia Code(s): J95.851 - VENTILATOR ASSOCIATED PNEUMONIA Status: Resolved Plan: - Plan Plan: Family meeting this morning at 10 am. Will plan for transition to hospice at that time as this is patient and family desire. <Viktoria Rosales - Last Filed: 06/14/17 09:47> Attending Addendum - Attending Addendum I personally evaluated the patient and discussed the management with Dr. Rosales. I agree with the History, Examination, Assessment and Plan documented above with any addition or exceptions noted below. Family meeting this morning to confirm that family wishes are in concordance with patient desires. Per their agreement, we will begin with comfort measures and transition care to hospice. <Vitor Molina - Last Filed: 06/14/17 15:23>
--- NOTE | 2017-06-14 09:17 | PRG ---
DATE OF SERVICE: 06/14/2017 SUBJECTIVE: Ms. Escamilla is an 82-year-old white female with known multiple medical problems and being followed by the Renal Service for acute kidney injury secondary to acute tubular necrosis. She cont inues to be dialyzed every other day for volume overload. No acute events noted last night. OBJECTIVE: VITAL SIGNS: Blood pressure is noted at 96/62, heart rate 101, temperature 98.2, pulse ox 95%. GENERAL EXAM: Sleepy, but arousable, not in overt distress. SKIN: Adequate turgor. HEENT: Patient has slightly pale conjunctivae, anicteric sclerae. NECK: No neck mass, no carotid bruits, no JVD. Positive for tracheostomy, on ventilator support. LUNGS: Decreased breath sounds. HEART: Tachycardic, grade 2/6 systolic murmur, no gallops or rubs. ABDOMEN: Globular, soft, nontender. EXTREMITIES: Positive for edema. MEDICATIONS: Medications of 06/14/2017 were reviewed. LABORATORY DATA: Laboratories of 06/14/2017, white count 16.9, hemoglobin 8.4, hematocrit 25.5. So dium 137, potassium 3.7, chloride 99, carbon dioxide 30, BUN 70, creatinine 1.83, glucose 89, and ca lcium 8.9. ASSESSMENT AND PLAN: 1. Acute kidney injury - secondary to acute tubular necrosis. I do not see any evidence of renal r ecovery. Urine output still markedly decreased. We will continue every other day dialysis for flui d removal. Overall, prognosis of this patient remains guarded. Consideration for hospice is being made by the family and they will decide on this by the end of this week. Continue supportive care. 2. Anemia. P.r.n. blood transfusion.
--- NOTE | 2017-06-14 09:25 | PRG ---
DATE OF SERVICE: 06/14/2017 This morning she is on the vent, awake, responsive. Having abdominal pain. We are going to give he r morphine. Her blood pressure is low, she is a DNR. [facility] PHYSICAL EXAMINATION: VITAL SIGNS: Blood pressure 96/62, pulse 101, respirations 40. I's \T\ O's have been 1030 in, 45 o ut. CHEST: Chest revealed decreased breath sounds without any wheezing. CARDIAC: Normal S1, S2. LABORATORY DATA: White count 16,000, H\T\H 8 and 25, platelet count is 59. BUN and creatinine are 70 and 1.85. X-ray shows extensive bilateral edema. IMPRESSION: 1. Pulmonary edema probably diastolic dysfunction. 2. Sepsis syndrome. 3. Thrombocytopenia. 4. Renal failure. 5. Severe deconditioning. PLAN: I agreed with hospice. Will try and see the easiest way to transfer today. We can probably stop all medications except morphine for comfort. The family members are here at e bedside.
[2017-06-14] MEDS: Lactinex Tablet PO SCH (09:42)
[2017-06-14] MEDS: predniSONE 20 MG TAB PO SCH (09:42)
[2017-06-14] MEDS: Polyethylene Glycol 3350 17 GM Packet PER TUBE SCH ×2 (09:43→09:53)
[2017-06-14] MEDS ORDERED: Lorazepam 2 MG/ML VIAL SLOW IVP PRN ×2 (10:49→15:12)
[2017-06-14 11:04] VITALS: BP 93/55
[2017-06-14] MEDS ORDERED: Lorazepam 2 MG/ML VIAL ONE (13:07)
--- NOTE | 2017-06-14 13:46 | PDOC.EVN ---
Event Note - Event Note Event Note: This patient has been transitioned to in-patient hospice at this time essentially due to multi-organ failure. I have been her primary care physician and came by to visit the family in their transition of care. The family understands the patient's expected course and we will anticipate a somewhat rapid decline after removal from ventilatory support. I expressed my appreciation in the patient's care throughout the last 18 months.
[2017-06-14 14:28] VITALS: TEMP 98.4
--- NOTE | 2017-06-16 23:59 | DIS-2 ---
DATE OF ADMISSION: 05/20/2017 DATE OF DISCHARGE: 06/14/2017 ADMITTING ATTENDING: Dr. Deric Childers. DISCHARGE ATTENDING: Dr. Vitor Molina CONSULTATIONS: 1. Dr. Luan Cordova of Pulmonology. 2. Dr. Benson Clark of Pulmonology. 3. Dr. Jose Luis Banegas of Pulmonology. 4. Dr. Osman of Pulmonology. 5. Dr. Yo Nixon of Gastroenterology. 6. Dr. Ben Lyon of General Surgery. 7. Dr. Alton Yusuf of Nephrology. 8. Dr. Mary Kay Cui of Cardiology. DISCHARGE DIAGNOSES: 1. Acute on chronic respiratory failure secondary to fluid overload. 2. Chronic kidney disease acutely worsened secondary to acute tubular necrosis. 3. Suspected choledocholithiasis. 4. Suspected ileus. 5. Severe physical deconditioning. 6. History of recent transcatheter aortic valve replacement. 7. Diastolic congestive heart failure. 8. Chronic anemia. 9. Thrombocytopenia, likely secondary to drug reaction. 10. Ventilator associated pneumonia, resolved. 11. Paroxysmal atrial fibrillation. DISCHARGE MEDICATIONS: None. PROCEDURES: 1. Endotracheal intubation on 05/24/2017. 2. Tracheostomy placement on 06/06/2017. 3. A temporary dialysis catheter placed in the right femoral vein on 06/06/2017. 4. Right internal jugular central line placement on 05/27/2017. 5. Bronchoscopy on 05/26/2017 and 05/31/2017 for mucus plugging. PERTINENT LABORATORY FINDINGS: 1. Creatinine at admission of 1.65, that worsened to 3.30 and after dialysis had minimal improvemen t to 1.83. 2. Thrombocytopenia as low as 10,000 platelets improved to 59,000 platelets on 06/14/2017, status p ost 3 units of 6 pack platelets. Over the course of hospitalization, the patient had 6 units of packed red blood cells transfused. IMAGIN. A final chest x-ray on 06/14/2017 showed worsening bilateral alveolar and interstitial pulmonary edema and pleural effusions and stable cardiomegaly. There were multiple chest x-rays performed th roughout this hospitalization. 2. Abdominal x-ray on 06/08/2017 showed distended abdominal gas pattern. HISTORY OF PRESENT ILLNESS/HOSPITAL COURSE: Ms. Escamilla is an 82-year-old female, who presen tyron to the hospital with a chief complaint of severe constipation, generalized weakness and fatigue. I took over care of this patient on 06/05/2017, throughout the remainder of her hospitalization. Please see Dr. Cole Williamson transition of care dictation labelled progress note on 06/04/2017 for car e up to 06/05/2017. As of 06/05/2017, patient had been intubated. The patient had been intubated f or over a week and the need for tracheostomy was imminent primarily secondary to patient's severe ph ysical deconditioning and dependence on the ventilator. The patient went for tracheostomy placement on 06/06/2017. At that time, she and her family decided to proceed with dialysis and a Trialysis c atheter was placed. The patient had a couple of rounds of dialysis; however, she was unable to tole rate complete dialysis and therefore ultrafiltration with primary method used. The patient was requ iring Levophed during her first few episodes of dialysis. At this point, the patient's kidneys were not responding to Lasix when dialysis was initiated. After dialysis initiation, the patient's kidn ey function continued to decline and was making approximately 20-70 mL of urine a day. On 7, the patient was able to make her wishes known via a dry erase marker board where she typed out th e letters hospice and indicated she wanted to be with her . The patient was adamant that she did not want to continue with dialysis and patient's family was called in and had a family meeting and were all in agreement that this was appropriate care to honor her wishes. The patient's family was made aware that without ventilator support, she would likely have a rapid decline. Family was i n agreement with placing the patient on hospice and proceeding with only comfort care and removal of all supportive care and medications. Medications will then be managed by Hospice for comfort measu res. Of note, during hospitalization, the patient was treated for ventilator associated pneumonia and was placed on linezolid, which is thought to be the cause of a fairly severe thrombocytopenia and the p atient required 3 units of 6 pack platelets. Patient's care was transitioned over to Hospice on 06/14/2017. DISPOSITION: Critical. DISCHARGE INSTRUCTIONS: 1. Location: To the Oncology unit of [facility] with [facility]. 2. Activity: Bed bound. 3. Diet: Patient's diet would be discontinued as she was relying on tube feeds. 4. Followup: The patient was to be in the care of [facility].
== END 2017-06-14 16:12 | disposition short-term general hospital (02) | DRG 3 ==
LOC: ERS 07:57 → 2NO 14:51 → IMCU/EMU 05-23 05:44 → CCU 05-24 08:27
PROVIDERS: ADMIT Family Medicine; ATTEND Family Medicine
PROC: 0BCM8ZZ Extirpation of Matter from Bilateral Lungs, Via Natural or Artificial Opening Endoscopic (ICD-10-PCS; 2017-05-26)
PROC: 30233N1 Transfusion of Nonautologous Red Blood Cells into Peripheral Vein, Percutaneous Approach (ICD-10-PCS; 2017-05-26)
PROC: 05HM33Z Insertion of Infusion Device into Right Internal Jugular Vein, Percutaneous Approach (ICD-10-PCS; 2017-05-27)
PROC: 0BH17EZ Insertion of Endotracheal Airway into Trachea, Via Natural or Artificial Opening (ICD-10-PCS; 2017-05-27)
PROC: 0B9M8ZX Drainage of Bilateral Lungs, Via Natural or Artificial Opening Endoscopic, Diagnostic (ICD-10-PCS; 2017-05-31)
PROC: 0B110F4 Bypass Trachea to Cutaneous with Tracheostomy Device, Open Approach (ICD-10-PCS; principal; 2017-06-06)
PROC: 5A1955Z Respiratory Ventilation, Greater than 96 Consecutive Hours (ICD-10-PCS; 2017-06-06)
PROC: 0BP1XDZ Removal of Intraluminal Device from Trachea, External Approach (ICD-10-PCS; 2017-06-06)
PROC: 06HM33Z Insertion of Infusion Device into Right Femoral Vein, Percutaneous Approach (ICD-10-PCS; 2017-06-06)
PROC: 5A1D70Z Performance of Urinary Filtration, Intermittent, Less than 6 Hours Per Day (ICD-10-PCS; 2017-06-06)
PROC: 30233R1 Transfusion of Nonautologous Platelets into Peripheral Vein, Percutaneous Approach (ICD-10-PCS; 2017-06-07)
DX: K56.41 Fecal impaction (principal); N17.0 Acute kidney failure with tubular necrosis; J96.21 Acute and chronic respiratory failure with hypoxia; J95.851 Ventilator associated pneumonia; A41.9 Sepsis, unspecified organism; I50.33 Acute on chronic diastolic (congestive) heart failure; T17.890A Other foreign object in other parts of respiratory tract causing asphyxiation, initial encounter; N18.3 Chronic kidney disease, stage 3 (moderate); S32.10XA Unspecified fracture of sacrum, initial encounter for closed fracture; I13.0 Hypertensive heart and chronic kidney disease with heart failure and stage 1 through stage 4 chronic kidney disease, or unspecified chronic kidney disease; E46 Unspecified protein-calorie malnutrition; S32.591A Other specified fracture of right pubis, initial encounter for closed fracture; J98.19 Other pulmonary collapse; K56.7 Ileus, unspecified; E87.2 Acidosis; J98.11 Atelectasis; N30.00 Acute cystitis without hematuria; D69.59 Other secondary thrombocytopenia; Z99.81 Dependence on supplemental oxygen; K80.20 Calculus of gallbladder without cholecystitis without obstruction; D64.9 Anemia, unspecified; R79.89 Other specified abnormal findings of blood chemistry; L98.499 Non-pressure chronic ulcer of skin of other sites with unspecified severity; I48.0 Paroxysmal atrial fibrillation; E87.6 Hypokalemia; E87.70 Fluid overload, unspecified; K83.8 Other specified diseases of biliary tract; E66.01 Morbid (severe) obesity due to excess calories; I25.10 Atherosclerotic heart disease of native coronary artery without angina pectoris; K80.50 Calculus of bile duct without cholangitis or cholecystitis without obstruction; R94.5 Abnormal results of liver function studies; R74.0 Nonspecific elevation of levels of transaminase and lactic acid dehydrogenase [LDH]; Z68.34 Body mass index [BMI] 34.0-34.9, adult; Z66 Do not resuscitate; Z95.2 Presence of prosthetic heart valve; Z95.5 Presence of coronary angioplasty implant and graft; Z51.5 Encounter for palliative care; Z79.82 Long term (current) use of aspirin; Z86.73 Personal history of transient ischemic attack (TIA), and cerebral infarction without residual deficits; W19.XXXA Unspecified fall, initial encounter; X58.XXXA Exposure to other specified factors, initial encounter; Y84.8 Other medical procedures as the cause of abnormal reaction of the patient, or of later complication, without mention of misadventure at the time of the procedure; Y92.230 Patient room in hospital as the place of occurrence of the external cause; Y92.009 Unspecified place in unspecified non-institutional (private) residence as the place of occurrence of the external cause; T50.905A Adverse effect of unspecified drugs, medicaments and biological substances, initial encounter
CPT/HCPCS: 36415; 36430; 51701; 71010; 71020; 74000; 74177; 74270; 76705; 80048; 80053; 81001; 81003; 81015; 82247; 82248; 82274; 82550; 82553; 82570; 82805; 83605; 83615; 83690; 83735; 83880; 84100; 84134; 84300; 84443; 84484; 85025; 85027; 85610; 85730; 86704; 86706; 86803; 86850; 86870; 86900; 86901; 86922; 87040; 87070; 87077; 87086; 87186; 87340; 90935; 93005; 93010; 93306; 93798; 94002; 94003; 94640; 94660; 96374; 96375; A4216; A4353; C1751; C9113; G0257; G8978-GP-CN; G8979-GP-CL; G8979-GP-CM; G8987-GO-CM; G8987-GO-CN; G8988-GO-CK; G8988-GO-CN; G8989-GO-CN; J0282; J0670; J0692; J0696; J1160; J1265; J1610; J1644; J1720; J1940; J2020; J2060; J2270; J2704; J2765; J2920; J3010; J3475; J3480; J7050; J7070; J7506; J7608; J7620; P9016; P9035; P9047; Q9961

== ENCOUNTER 2017-06-14 16:20 | Inpatient (IN) | payer OTHER ==
[2017-06-14 16:30] VITALS: BMI 28.1
[2017-06-14] MEDS ORDERED: Prochlorperazine Maleate 5 MG TAB PO PRN (17:06)
[2017-06-14] MEDS ORDERED: Morphine Sulfate 10 mg/0.5 ml Oral Syringe SL PRN ×4 (17:06→17:08)
[2017-06-14] MEDS ORDERED: Lorazepam 0.5 MG TAB PO PRN (17:09)
[2017-06-14] MEDS ORDERED: Hyoscyamine Sulfate SL 0.125 mg Tablet SL PRN (17:10)
[2017-06-14] MEDS ORDERED: Acetaminophen 650 MG Suppository PR PRN (17:11)
[2017-06-14] MEDS ORDERED: Bisacodyl 10 MG SUPP PR PRN (17:11)
[2017-06-14] MEDS ORDERED: Haloperidol Lactate 2 MG/ML UDCUP PO PRN (17:12)
[2017-06-14 19:48] VITALS: BP 91/55; TEMP 98.6
[2017-06-15] MEDS: Lorazepam 2 MG/ML VIAL SLOW IVP PRN ×2 (00:33→05:20)
--- NOTE | 2017-06-16 14:00 | DS ---
HISTORY OF PRESENT ILLNESS: This is an 82-year-old female who was admitted to hospice after she had respiratory failure and acute kidney injury, the patient refused dialysis and the patient was septi c, the patient and the family chose hospice. The findings of hospice were discussed with the patien t and the family and everybody was on board. The patient was terminal at the time of examination. DISPOSITION: To [facility] [place].
== END 2017-06-15 06:30 | disposition expired | DRG 951 ==
LOC: ONC 16:20
PROVIDERS: ADMIT Internal Medicine Nephrology; ATTEND Internal Medicine Nephrology
DX: Z51.5 Encounter for palliative care (principal); J96.90 Respiratory failure, unspecified, unspecified whether with hypoxia or hypercapnia; N17.9 Acute kidney failure, unspecified; I13.0 Hypertensive heart and chronic kidney disease with heart failure and stage 1 through stage 4 chronic kidney disease, or unspecified chronic kidney disease; Z99.81 Dependence on supplemental oxygen; I50.9 Heart failure, unspecified; D64.9 Anemia, unspecified; S32.591D Other specified fracture of right pubis, subsequent encounter for fracture with routine healing; S32.10XD Unspecified fracture of sacrum, subsequent encounter for fracture with routine healing; W01.0XXD Fall on same level from slipping, tripping and stumbling without subsequent striking against object, subsequent encounter; N18.9 Chronic kidney disease, unspecified; I25.10 Atherosclerotic heart disease of native coronary artery without angina pectoris; Z95.5 Presence of coronary angioplasty implant and graft; E78.5 Hyperlipidemia, unspecified; Z95.2 Presence of prosthetic heart valve; Z66 Do not resuscitate; L98.499 Non-pressure chronic ulcer of skin of other sites with unspecified severity; S51.011D Laceration without foreign body of right elbow, subsequent encounter; S41.112D Laceration without foreign body of left upper arm, subsequent encounter; S41.111D Laceration without foreign body of right upper arm, subsequent encounter; S81.811D Laceration without foreign body, right lower leg, subsequent encounter; S80.812D Abrasion, left lower leg, subsequent encounter; S00.33XD Contusion of nose, subsequent encounter; S00.83XD Contusion of other part of head, subsequent encounter; S60.222D Contusion of left hand, subsequent encounter; S60.221D Contusion of right hand, subsequent encounter; S80.02XD Contusion of left knee, subsequent encounter; S70.11XD Contusion of right thigh, subsequent encounter; S40.022D Contusion of left upper arm, subsequent encounter; S40.021D Contusion of right upper arm, subsequent encounter; S90.32XD Contusion of left foot, subsequent encounter; S90.31XD Contusion of right foot, subsequent encounter; S31.119D Laceration without foreign body of abdominal wall, unspecified quadrant without penetration into peritoneal cavity, subsequent encounter
CPT/HCPCS: 94640; J2060; J2270